=== PATIENT | female | born 1965 | race Caucasian/White ===

== ENCOUNTER 2018-02-25 19:21 | Emergency (ER) | payer OTHER ==
[~2018-02-25] VITALS: Ht 152.4 cm; Wt 63.5 kg
[~2018-02-25 19:21] MED LIST: "\\\"CHOLESTEROL MED\\\""; ALBU90OI INH; ALBU90OI6 INH; ATOR40TA PO; Amoxicillin500 MG PO; COMBIVENT RESPIM4 GM INH; Cipro500 MG PO; DOXY100T53 PO; FLUSAL5005 INH; Flonase 0.05% N16 GM; GUAI120S1 PO; HYDACE10B; HYDR1TAB94 PO; Naprosyn500 MG PO; Norco 5-325 Ta1 EACH PO; OMEP20ER; OMEP40CA12 PO; OXYACE5T PO; PRED10 PO; Prednisone20 MG PO; Prilosec Otc20 MG PO; Pyridium200 MG PO; QVAR7.3 G1 IH; SPACE CHAMBER1 EACH MC; Zithromax250 MG PO
[2018-02-25] MEDS ORDERED: Cipro500 MG PO (20:32)
[2018-02-25] MEDS ORDERED: ALBU90OI INH (20:32)
== END 2018-02-25 20:46 | disposition home or self-care (01) ==
LOC: ER 19:21
DX: J44.1 Chronic obstructive pulmonary disease with (acute) exacerbation (principal); E78.5 Hyperlipidemia, unspecified; Z79.899 Other long term (current) drug therapy; Z79.51 Long term (current) use of inhaled steroids; Z79.2 Long term (current) use of antibiotics; Z87.891 Personal history of nicotine dependence
CPT/HCPCS: 71046; 94640; 99283

== ENCOUNTER 2018-05-05 17:02 | Emergency (ER) | payer OTHER ==
[~2018-05-05] VITALS: Ht 152.4 cm; Wt 72.6 kg
== END 2018-05-05 19:49 | disposition home or self-care (01) ==
LOC: ER 17:02
DX: S70.02XA Contusion of left hip, initial encounter (principal); S80.02XA Contusion of left knee, initial encounter; E78.5 Hyperlipidemia, unspecified; Z79.899 Other long term (current) drug therapy; Z87.891 Personal history of nicotine dependence; W01.0XXA Fall on same level from slipping, tripping and stumbling without subsequent striking against object, initial encounter
CPT/HCPCS: 73502; 73564; 99283

== ENCOUNTER 2018-07-02 19:33 | Emergency (ER) | payer OTHER ==
[~2018-07-02] VITALS: Ht 152.4 cm; Wt 74.8 kg
[~2018-07-02 19:33] MED LIST changes: +QNASL8.7 GM INH
[2018-07-02] MEDS ORDERED: METF500C (19:38)
== END 2018-07-02 20:59 | disposition home or self-care (01) ==
LOC: ER 19:33
DX: M25.471 Effusion, right ankle (principal); E78.5 Hyperlipidemia, unspecified; Z87.891 Personal history of nicotine dependence; Z79.899 Other long term (current) drug therapy
CPT/HCPCS: 93971; 99283-25

== ENCOUNTER 2019-01-02 11:58 | Emergency (ER) | payer OTHER ==
[~2019-01-02] VITALS: Ht 152.4 cm; Wt 74.8 kg
[~2019-01-02 11:58] MED LIST changes: +METF500C
[2019-01-02 12:55] LABS: Calcium, Ionized (POC) 1.08 mmol/L (1.10-1.46); Chloride (POC) 105 mmol/L (98-108); Creatinine (POC) 0.7 mg/dL (0.6-1.0); Glucose (ISTAT POC) 129 mg/dL (70-99); Hemoglobin (POC) 12.2 g/dL (12.0-16.0); Potassium (POC) 3.7 mmol/L (3.5-5.5); Sodium (POC) 137 mmol/L (135-148); Total CO2 (POC) 25 mmol/L (21-32)
[2019-01-02] MEDS ORDERED: Prednisone20 MG PO (13:15)
== END 2019-01-02 13:34 | disposition home or self-care (01) ==
LOC: ER 11:58
DX: J44.1 Chronic obstructive pulmonary disease with (acute) exacerbation (principal); E78.5 Hyperlipidemia, unspecified; Z79.51 Long term (current) use of inhaled steroids; Z79.84 Long term (current) use of oral hypoglycemic drugs; Z79.899 Other long term (current) drug therapy; Z87.891 Personal history of nicotine dependence
CPT/HCPCS: 71046; 80047; 85014; 94640; 99285-25

== ENCOUNTER 2019-01-12 17:00 | Emergency (ER) | payer OTHER ==
[~2019-01-12] VITALS: Ht 152.4 cm; Wt 74.8 kg
[2019-01-12 17:39] LABS: BASOPHILS ABSOLUTE AUTO 0.03 K/mm3 (0.00-0.23); BASOPHILS PERCENT AUTO 0 % (0-2); EOSINOPHILS PERCENT AUTO 1 % (0-6); Hematocrit 33.7 % (33.0-51.0); Hemoglobin 10.3 g/dL (11.5-16.0); IMMATURE GRAN ABSOLUTE AUTO 0.16 K/mm3 (0.00-0.10); IMMATURE GRAN PERCENT AUTO 1 % (0-1); LYMPHOCYTES ABSOLUTE AUTO 5.69 K/mm3 (0.84-5.20); LYMPHOCYTES PERCENT AUTO 38 % (21-46); MONOCYTES ABSOLUTE AUTO 1.16 K/mm3 (0.16-1.47); MONOCYTES PERCENT AUTO 8 % (4-13); Mean Corpuscular HGB 25.5 pg (26.0-34.0); Mean Corpuscular HGB Conc 30.6 g/dL (31.5-36.5); Mean Corpuscular Volume 83 fL (80-100); Mean Platelet Volume 8.9 fL (9.1-12.4); NEUTROPHILS ABSOLUTE AUTO 7.82 K/mm3 (1.96-9.15); NEUTROPHILS PERCENT AUTO 52 % (41-73); Platelet Count 495 K/mm3 (150-400); RDW Coefficient Variation 14.2 % (11.7-14.2); RDW Standard Deviation 43.2 fL (35.1-46.3); Red Blood Cell Count 4.04 M/mm3 (3.80-5.20); White Blood Cell Count 14.96 K/mm3 (4.00-11.30)
[2019-01-12 18:03] LABS: Alanine Aminotransfer (ALT/SGP 25 U/L (12-78); Albumin, Blood 3.4 g/dL (3.4-5.0); Albumin/Globulin Ratio 1.1 (0.8-1.8); Alk Phos 87 U/L (50-136); Anion Gap 9 mmol/L (6-16); Aspartate Aminotrans (AST/SGOT 15 U/L (12-37); Bilirubin, Total 0.3 mg/dL (0.1-1.0); Blood Urea Nitrogen 13 mg/dL (8-24); Bun/Creatinine Ratio 17.1 (12.0-20.0); CO2, Blood 28 mmol/L (21-32); Calcium, Blood 7.5 mg/dL (8.5-10.1); Chloride, Blood 108 mmol/L (98-108); Creatinine, Blood 0.76 mg/dL (0.40-1.00); Glomerular Filtration Rate >60 (60-); Glucose, Blood 90 mg/dL (70-99); Potassium, Blood 2.9 mmol/L (3.5-5.5); Sodium, Blood 145 mmol/L (136-145); Total Protein, Blood 6.4 g/dL (6.4-8.2); Troponin I <0.015 ng/mL (0.000-0.040)
[2019-01-12] MEDS ORDERED: PRED10 PO (18:16)
[2019-01-12] MEDS ORDERED: POTCHL20ER PO (18:16)
== END 2019-01-12 18:37 | disposition home or self-care (01) ==
LOC: ER 17:00
PROVIDERS: Emergency Medicine
DX: J44.1 Chronic obstructive pulmonary disease with (acute) exacerbation (principal); E87.6 Hypokalemia; E11.9 Type 2 diabetes mellitus without complications; E78.5 Hyperlipidemia, unspecified; K21.9 Gastro-esophageal reflux disease without esophagitis; Z87.891 Personal history of nicotine dependence; Z79.84 Long term (current) use of oral hypoglycemic drugs; Z79.899 Other long term (current) drug therapy
CPT/HCPCS: 36415; 71046; 80053; 83880; 84484; 85025; 93005; 93010; 94644; 99285-25

== ENCOUNTER 2019-07-14 13:07 | Emergency (ER) | payer OTHER ==
[~2019-07-14] VITALS: Ht 152.4 cm; Wt 72.6 kg
[~2019-07-14 13:07] MED LIST changes: +POTCHL20ER PO
== END 2019-07-14 15:58 | disposition home or self-care (01) ==
LOC: ER 13:07
DX: M25.462 Effusion, left knee (principal); Z79.84 Long term (current) use of oral hypoglycemic drugs; Z79.899 Other long term (current) drug therapy; J44.9 Chronic obstructive pulmonary disease, unspecified; E78.5 Hyperlipidemia, unspecified; E78.00 Pure hypercholesterolemia, unspecified; Z87.891 Personal history of nicotine dependence; Z85.42 Personal history of malignant neoplasm of other parts of uterus
CPT/HCPCS: 73562-LT; 76882; 99284-25; J2704

== ENCOUNTER 2019-09-08 09:30 | Emergency (ER) | payer OTHER ==
[~2019-09-08] VITALS: Ht 162.6 cm; Wt 69.8 kg
[2019-09-08] MEDS ORDERED: Ventolin/Prove6.7 GM INH (10:42)
[2019-09-08] MEDS ORDERED: Prednisone20 MG PO (10:42)
[2019-09-08] MEDS ORDERED: Zithromax250 MG PO (10:42)
== END 2019-09-08 10:50 | disposition home or self-care (01) ==
LOC: ER 09:30
DX: R05 Cough (principal); Z79.899 Other long term (current) drug therapy; Z79.84 Long term (current) use of oral hypoglycemic drugs; Z79.52 Long term (current) use of systemic steroids; E78.5 Hyperlipidemia, unspecified; J44.9 Chronic obstructive pulmonary disease, unspecified; Z87.891 Personal history of nicotine dependence
CPT/HCPCS: 71046; 99283-25; J7512

== ENCOUNTER 2019-10-07 11:41 | Emergency (ER) | payer OTHER ==
[~2019-10-07] VITALS: Ht 152.4 cm; Wt 72.6 kg
[~2019-10-07 11:41] MED LIST changes: +Albuterol2.5 MG/0.5 NEB; +IBUP600 PO; +METF500C PO; +Norco 10-325 T1 EACH PO; +OMEPRAZOLE20 MG PO; +VITAMIN D35000 UNIT PO; +Ventolin/Prove6.7 GM INH
[2019-10-07] MEDS ORDERED: Zithromax250 MG PO (14:03)
[2019-10-07] MEDS ORDERED: Prednisone20 MG PO (14:03)
== END 2019-10-07 14:15 | disposition home or self-care (01) ==
LOC: ER 11:41
DX: J44.1 Chronic obstructive pulmonary disease with (acute) exacerbation (principal); E11.9 Type 2 diabetes mellitus without complications; K21.9 Gastro-esophageal reflux disease without esophagitis; E78.5 Hyperlipidemia, unspecified; Z87.891 Personal history of nicotine dependence; Z79.899 Other long term (current) drug therapy; Z79.84 Long term (current) use of oral hypoglycemic drugs
CPT/HCPCS: 71046; 94644; 96374; 99283-25; J2930

== ENCOUNTER 2019-10-26 05:58 | Day surgery (SDC) | payer OTHER ==
[~2019-10-26] VITALS: Ht 152.4 cm; Wt 73.4 kg
--- NOTE | 2019-10-26 06:39 | NUR ---
History, Chart, Medications and Allergies reviewed before start of procedure. Patient confirms NPO status and agrees with scheduled surgery.
--- NOTE | 2019-10-26 06:58 | NUR ---
KNEE HIGH MILA HOSE WITH CALF PAS INTACT TO RLE.
--- NOTE | 2019-10-26 07:15 | NUR ---
CHER X3 AMPULES TO MAXX COSTA.
--- NOTE | 2019-10-26 15:18 | NUR ---
PT WORKING WITH THERAPY.
--- NOTE | 2019-10-26 18:34 | NUR ---
SHIFT SUMMARY PT EATING AND DRINKING, VOIDING. PT AMBULATED SHORT DISTANCE WITH GAIT BELT AND WALKER. PT BEEN ASSISTED WITH ADL'S PRN. DISCUSSED PAIN MGMT WITH PT.
[2019-10-27 04:25] LABS: BASOPHILS ABSOLUTE AUTO 0.03 K/mm3 (0.00-0.23); BASOPHILS PERCENT AUTO 0 % (0-2); EOSINOPHILS ABSOLUTE AUTO 0.04 K/mm3 (0.00-0.68); EOSINOPHILS PERCENT AUTO 0 % (0-6); Hematocrit 25.7 % (33.0-51.0); Hemoglobin 7.7 g/dL (11.5-16.0); IMMATURE GRAN ABSOLUTE AUTO 0.06 K/mm3 (0.00-0.10); IMMATURE GRAN PERCENT AUTO 0 % (0-1); LYMPHOCYTES ABSOLUTE AUTO 1.89 K/mm3 (0.84-5.20); LYMPHOCYTES PERCENT AUTO 12 % (21-46); MONOCYTES ABSOLUTE AUTO 1.42 K/mm3 (0.16-1.47); MONOCYTES PERCENT AUTO 9 % (4-13); Mean Corpuscular HGB 23.6 pg (26.0-34.0); Mean Corpuscular Volume 79 fL (80-100); Mean Platelet Volume 9.5 fL (9.1-12.4); NEUTROPHILS ABSOLUTE AUTO 12.04 K/mm3 (1.96-9.15); NEUTROPHILS PERCENT AUTO 78 % (41-73); Platelet Count 386 K/mm3 (150-400); RDW Coefficient Variation 16.1 % (11.7-14.2); RDW Standard Deviation 46.5 fL (35.1-46.3); Red Blood Cell Count 3.26 M/mm3 (3.80-5.20); White Blood Cell Count 15.48 K/mm3 (4.00-11.30)
[2019-10-27 04:45] LABS: Anion Gap 7 mmol/L (6-16); Blood Urea Nitrogen 17 mg/dL (8-24); CO2, Blood 25 mmol/L (21-32); Calcium, Blood 8.5 mg/dL (8.5-10.1); Chloride, Blood 108 mmol/L (98-108); Creatinine, Blood 0.77 mg/dL (0.40-1.00); Glomerular Filtration Rate >60 (60-); Glucose, Blood 117 mg/dL (70-99); Magnesium, Blood 1.9 mg/dL (1.6-2.4); Potassium, Blood 4.3 mmol/L (3.5-5.5); Sodium, Blood 140 mmol/L (136-145)
--- NOTE | 2019-10-27 06:07 | NUR ---
SHIFT SUMMARY: TABBY IS POD1 FOR A L TKA. SHE HAS INTACT SENSATION AND BRISK CAPILLARY REFILL IN BLE. SHE IS A&OX4. SHE HAS COMPLAINED OF 8-10/10 PAIN IN THE LEFT KNEE THROUGHOUT THE SHIFT FOR WHICH SHE REPORTS 2 TABLETS OF OXYCODONE ALLOW HER TO REST. MILA HOSE, SCDs, AND POLAR PACK IN PLACE. SHE AMBULATES WITH 1 PERSON ASSIST WITH THE FWW. AQUACELL C/D&I. SHE IS TOLERATING PO INTAKE WELL. SHE DID DEVELOP SOME WHEEZING AND A CONGESTED SOUNDING COUGH AT HS FOR WHICH THE BREATHING TREATEMENT PROVIDED BY RT RESOLVED HER SYMTPOMS. SHE RESTED WITH SNORTING RESPIRATIONS FREQUENTLY THROUGHOUT THE SHIFT. SHE IS VOIDING WITHOUT DIFFICULTY. IV TO RIGHT WRIST PATENT, SALINE LOCKED. SHE IS LYING IN BED WITH HER CALL LIGHT IN REACH.
--- NOTE | 2019-10-27 07:51 | NUR ---
PT REPORTS "MY PAIN IS FINALLY DOING BETTER THIS AM". PT REFUSING TO BE OUT OF BED TO CHAIR THIS AM FOR BREAKFAST.
[2019-10-27] MEDS ORDERED: ACET500 PO (08:54)
[2019-10-27] MEDS ORDERED: ROXICODONE5 MG PO (08:55)
[2019-10-27] MEDS ORDERED: ASPI81CH PO (08:55)
--- NOTE | 2019-10-27 09:24 | NUR ---
DR ARREAGA HERE EARLIER TO SEE PT, DISCUSSED PT'S LABS. REPORTS PT ASSYMPTOMATIC TO GIVE ASA. DRESSING TO L KNEE C/D/I.
--- NOTE | 2019-10-27 10:04 | NUR ---
FAMILY PRESENT. PT UP TO BATHROOM, THEN TO CHAIR. NEW ICE TO POLAR PAC. DISCUSSED POLAR PAC AND DRESSING CHANGE WITH FAMILY.
--- NOTE | 2019-10-27 11:24 | NUR ---
PT WORKING WITH THERAPY. FAMILY PRESENT.
--- NOTE | 2019-10-27 14:40 | NUR ---
10/27/19 1440 Susan Abbott VERIFICATIONS: EDIT CHART.
--- NOTE | 2019-10-27 16:16 | NUR ---
DISCHARGE: PT EATING AND DRINKING, VOIDING, PASSING GAS. PT PAIN CONTROLLED ON PO PAIN MEDICATION. PT CLEARED BY THERAPY TO GO HOME. PT/FAMILY REPORTS UNDERSTANDING OF DISCHARGE INSTRUCTIONS. PT REPORTS HAVING APPR EQUIP AT HOME. PT SENT WITH SCRIPT AND PAPERWORK. PT ALSO SENT WITH DRESSINGS. PT/FAMILY ALSO REPORTS UNDERSTANDING OF ICE MACHINE AND DRESSING SUPPLIES.
== END 2019-10-27 16:29 | disposition home or self-care (01) ==
LOC: ORSCMMR 05:58 → ORD 07:30 → SURS 14:09 → ORSCMMR 10-27 16:29
PROVIDERS: Orthopaedic Surgery
PROC: 0SPD04Z Removal of Internal Fixation Device from Left Knee Joint, Open Approach (ICD-10-PCS; principal; 2019-10-26 07:30)
PROC: 0SRD0J9 Replacement of Left Knee Joint with Synthetic Substitute, Cemented, Open Approach (ICD-10-PCS; principal; 2019-10-26 07:30)
DX: M17.32 Unilateral post-traumatic osteoarthritis, left knee (principal); E11.9 Type 2 diabetes mellitus without complications; Z79.899 Other long term (current) drug therapy; Z79.84 Long term (current) use of oral hypoglycemic drugs; J44.9 Chronic obstructive pulmonary disease, unspecified; K21.9 Gastro-esophageal reflux disease without esophagitis; Z87.891 Personal history of nicotine dependence
CPT/HCPCS: 36415; 73560-LT; 80048; 82947; 83735; 85025; 88300; 94640; 94760; 97110; 97116; 97162; 97530; C1713; C1776; J0171; J0690; J0735; J1100; J1170; J1885; J2250; J2405; J2704; J2795; J3010; J7120

== ENCOUNTER 2020-01-01 07:30 | Emergency (ER) | payer OTHER ==
[~2020-01-01] VITALS: Ht 162.6 cm; Wt 69.8 kg
[~2020-01-01 07:30] MED LIST changes: +ACET500 PO; +ASPI81CH PO; +ROXICODONE5 MG PO
[2020-01-01] MEDS ORDERED: Vibramycin100 MG PO (08:37)
[2020-01-01] MEDS ORDERED: PRED20 PO (08:37)
== END 2020-01-01 09:11 | disposition home or self-care (01) ==
LOC: ER 07:30
DX: J44.0 Chronic obstructive pulmonary disease with (acute) lower respiratory infection (principal); J20.9 Acute bronchitis, unspecified; J44.1 Chronic obstructive pulmonary disease with (acute) exacerbation; E78.5 Hyperlipidemia, unspecified; I25.10 Atherosclerotic heart disease of native coronary artery without angina pectoris; Z79.899 Other long term (current) drug therapy; Z79.51 Long term (current) use of inhaled steroids; Z79.84 Long term (current) use of oral hypoglycemic drugs; Z79.82 Long term (current) use of aspirin; Z87.891 Personal history of nicotine dependence
CPT/HCPCS: 71046; 93005; 93010; 94640; 99283-25; J7512

== ENCOUNTER 2020-04-11 14:00 | Day surgery (SDC) | payer OTHER ==
[~2020-04-11 14:00] MED LIST changes: +PRED20 PO; +Vibramycin100 MG PO
[2020-04-11] MEDS ORDERED: Hydrocodone-Ap1 EA20 PO (14:50)
[2020-04-11] MEDS ORDERED: Ventolin/Prove6.7 GM INH (14:52)
== END 2020-04-11 18:06 | disposition home or self-care (01) ==
PROVIDERS: Podiatrist Foot & Ankle Surgery
PROC: 0SPF04Z Removal of Internal Fixation Device from Right Ankle Joint, Open Approach (ICD-10-PCS; principal; 2020-04-11 15:45)
DX: M19.071 Primary osteoarthritis, right ankle and foot (principal); T84.84XA Pain due to internal orthopedic prosthetic devices, implants and grafts, initial encounter; J44.9 Chronic obstructive pulmonary disease, unspecified; Z79.899 Other long term (current) drug therapy

== ENCOUNTER 2020-06-07 14:19 | Inpatient (IN) | payer OTHER ==
[~2020-06-07] VITALS: Ht 152.4 cm; Wt 73.4 kg
[~2020-06-07 14:19] MED LIST changes: +Hydrocodone-Ap1 EA20 PO
--- NOTE | 2020-06-10 07:40 | NUR ---
INTO [facility] ADMISSION STARTED SURGEON AND ANNESTHESIOLOGIST AT BEDSIDE
--- NOTE | 2020-06-10 11:12 | NUR ---
PT WAKES AT 1105 STATING OVER AND OVER "MY FOOT HURTS SO BAD" MEDICATING PRESCRIBED SHE IS ABLE TO WIGGLE TOES CAP REFILL WNL DRSG CDI FACIAL GRIMACE PRESENT
--- NOTE | 2020-06-10 13:18 | NUR ---
ARRIVED FROM PACU VIA GURNEY, TRANSFERRED TO BED, AWAKE, A&OX3, DROWSY, C/O PAIN ON RLE THEN FALLS BACK TO SLEEP, ICE PACK NOTED ON RLE, ELEVATED ON PILLOWS, DENIES ANY NUMBNESS OR TINGLING, RLE W/ SPLINT AND YOSEF WRAP, ABLE TO MOVE TOES ON R FOOT, <3 SEC CAP REFILL, DSG C/D/I, DENIES ANY SOB, MONITOR FOR ANY CHANGES, ASSIST PRN, MEDICATE FOR PAIN PRN.
[2020-06-10 13:40] LABS: Anion Gap 6 mmol/L (6-16); Blood Urea Nitrogen 13 mg/dL (8-24); CO2, Blood 28 mmol/L (21-32); Calcium, Blood 8.4 mg/dL (8.5-10.1); Chloride, Blood 104 mmol/L (98-108); Creatinine, Blood 0.76 mg/dL (0.40-1.00); Glomerular Filtration Rate >60 (60-); Glucose, Blood 124 mg/dL (70-99); Potassium, Blood 4.1 mmol/L (3.5-5.5); Sodium, Blood 138 mmol/L (136-145)
--- NOTE | 2020-06-10 17:02 | NUR ---
PT CONT. TO C/O PAIN 06/03 ON POSTERIOR ANKLE AREA, DR. BAE NOTIFIED, HERE TO SEE PT, FENTANYL IV CHANGED FROM Q4HRS PRN TO Q2HRS PRN, AND XRAY ORDERED FOR RLE, PT MEDICATED ORDERED, ASSISTED TO BSC TO VOID, ABLE TO TRANSFER SELF TO BSC AND MAINTAIN NWB ON R ANKLE, TOLERATED WELL, ASSISTED BACK TO BED, ELEVATED RLE ON PILLOWS, DSG C/D/I, NO ACUTE CHANGES THIS SHIFT.
--- NOTE | 2020-06-11 00:48 | NUR ---
PAIN BACK UP TO 10/10, TRIED ELEVATING AND ICE. NOT TIME FOR ANY NARCOTICS. PLACED CALL OUT TO DR. FLORES.
[2020-06-11 04:27] LABS: BASOPHILS ABSOLUTE AUTO 0.06 K/mm3 (0.00-0.23); BASOPHILS PERCENT AUTO 1 % (0-2); EOSINOPHILS ABSOLUTE AUTO 0.19 K/mm3 (0.00-0.68); EOSINOPHILS PERCENT AUTO 2 % (0-6); Hematocrit 32.5 % (33.0-51.0); Hemoglobin 9.5 g/dL (11.5-16.0); IMMATURE GRAN ABSOLUTE AUTO 0.04 K/mm3 (0.00-0.10); IMMATURE GRAN PERCENT AUTO 0 % (0-1); LYMPHOCYTES ABSOLUTE AUTO 1.41 K/mm3 (0.84-5.20); LYMPHOCYTES PERCENT AUTO 13 % (21-46); MONOCYTES ABSOLUTE AUTO 1.22 K/mm3 (0.16-1.47); MONOCYTES PERCENT AUTO 11 % (4-13); Mean Corpuscular HGB 23.2 pg (26.0-34.0); Mean Corpuscular HGB Conc 29.2 g/dL (31.5-36.5); Mean Corpuscular Volume 79 fL (80-100); Mean Platelet Volume 9.2 fL (9.1-12.4); NEUTROPHILS ABSOLUTE AUTO 7.77 K/mm3 (1.96-9.15); NEUTROPHILS PERCENT AUTO 73 % (41-73); Platelet Count 519 K/mm3 (150-400); RDW Coefficient Variation 15.9 % (11.7-14.2); RDW Standard Deviation 45.4 fL (35.1-46.3); White Blood Cell Count 10.69 K/mm3 (4.00-11.30)
[2020-06-11 04:42] LABS: Anion Gap 6 mmol/L (6-16); Blood Urea Nitrogen 11 mg/dL (8-24); Bun/Creatinine Ratio 14.3 (12.0-20.0); CO2, Blood 27 mmol/L (21-32); Calcium, Blood 8.5 mg/dL (8.5-10.1); Chloride, Blood 104 mmol/L (98-108); Creatinine, Blood 0.77 mg/dL (0.40-1.00); Glomerular Filtration Rate >60 (60-); Glucose, Blood 130 mg/dL (70-99); Potassium, Blood 4.7 mmol/L (3.5-5.5); Sodium, Blood 137 mmol/L (136-145)
--- NOTE | 2020-06-11 04:42 | NUR ---
POD 1 S/P RIGHT TOTAL ANKLE. PT HAD POOR PAIN MANAGEMENT DURING NIGHT. WAS ABLE TO OBTAIN ORDER FOR IV DILAUDID AND PT HAS BEEN ABLE TO TOLERATE PAIN. PT ABLE TO WIGGLE TOES, DENIES N/T, GOOD CAP REFILL. KEPT LE ELEVATED WITH ICE. PT IS ABLE TO TRANSFER SELF TO BSC WITH SBA AND NWB TO RLE. LABS PENDING. CALL LIGHT IN REACH.
--- NOTE | 2020-06-11 17:30 | NUR ---
TELEPHONE CALL WITH SURGEON R/T HOSPITALIST PLAN TO DC PT SINCE PT HAS PASSED PHYSICAL THERAPY AND IS BETTER PAIN MANAGED ON PERCOCET 10 MG. SURGEON AGREED AND WANTS TO SEE PT ON THURSDAY 06/14. PT STATED SHE DOES NOT HAVE A RIDE HOME TODAY, NO ONE TO STAY WITH, NOR ANY OTHER FRIENDS OR FAMILY THAT CAN PICK HER UP. TELEPHONE CALL TO HOSPITALIST RELAYING ABOVE; PLAN TO DC PT IN AM. PT HAS ARRANGED FOR FAMILY TO PICK HER UP AT 1000.
--- NOTE | 2020-06-11 18:04 | NUR ---
SHIFT SUMMARY PT A&OX4, VSS, POD1 R TOTAL ANKLE, NEW DRESSING APPLIED BY DR BAE THIS AM, ELEVATED ON PILLOWS WITH ICE ON. PAIN MANAGED WITH 10 MG PERCOCET. SADE PO, DENIES N&V. STAND PIVOT TO BSC. PLAN FOR DC IN AM. WILL REPORT TO ONCKUMAR DONG RN.
--- NOTE | 2020-06-12 04:28 | NUR ---
POD 2 S/P RIGHT TOTAL ANKLE. DID MUCH BETTER LAST NIGHT THAN THE NIGHT PRIOR. DID MEDICATE ONCE FOR BREAKTHROUGH PAIN AT BEGINING OF SHIFT. HAS KEPT ELEVATED WITH ICE. ABLE TO TRANSFER SELF TO BSC WITH JUST SBA. PLAN FOR DC HOME TODAY. SPLINT REMAINS CDI. CIRC CHECKS WNL. CALL LIGHT IN REACH.
[2020-06-12] MEDS ORDERED: ASPI325 PO (11:53)
[2020-06-12] MEDS ORDERED: Percocet 5-3251 EACH PO (11:54)
[2020-06-12] MEDS ORDERED: PERCOCET 10-321 EAC1 PO (11:55)
--- NOTE | 2020-06-12 15:09 | NUR ---
DISCHARGE SUMMARY PT A&OX4, VSS, LEFT FLOOR VIA WC WITH LEATHER COATER TO [facility] HOME WITH FAMILY WITH ALL PERSONAL POSSESSIONS INCLUDING 1 NRC SCRIPT. DC INSTRUCTIONS PROVIDED. PT REP UNDERSTANDING THOSE INSTRUCTIONS INCLUDING FU WITH DR BAE ON SATURDAY AND TO CALL THE OFFICE ON SATURDAY TO SCHEDULE APPT; FILL PAIN SCRIPT; TAKE ASA 325 DAILY FOR 14 DAYS; ALL AMB WITH FWW/NWB. IV DC'D. PT WAS PAIN MANAGED WITH 10 MG PERC, VOIDING WELL, AMB WITH FWW AND USING BSC, DRESSED INDEPENDENTLY; WORKED WITH PT/OT; PT VOICED BEING READY TO GO HOME WITH SON AND DIL.
== END 2020-06-12 12:07 | disposition home or self-care (01) | DRG 469 ==
LOC: PRE IP 06-10 07:16 → SURS 06-10 07:16 → PRE IP 06-10 08:30 → SURS 06-10 12:31
PROVIDERS: Nurse Practitioner Acute Care; Podiatrist Foot & Ankle Surgery; ADMIT Family Medicine
PROC: 0L8S0ZZ Division of Right Ankle Tendon, Open Approach (ICD-10-PCS; 2020-06-10)
PROC: 0SRF0JA Replacement of Right Ankle Joint with Synthetic Substitute, Uncemented, Open Approach (ICD-10-PCS; principal; 2020-06-10 08:30)
DX: M19.071 Primary osteoarthritis, right ankle and foot (principal); J44.9 Chronic obstructive pulmonary disease, unspecified; K21.9 Gastro-esophageal reflux disease without esophagitis; E78.5 Hyperlipidemia, unspecified; D47.3 Essential (hemorrhagic) thrombocythemia; D63.8 Anemia in other chronic diseases classified elsewhere; Z87.891 Personal history of nicotine dependence
CPT/HCPCS: 36415; 73610; 80048; 85025; 94640; 94760; 96375; 96376; 97110; 97116; 97162; 97165; 97535; A9270; A9270-GY; C1776; G0378; J0171; J0690; J1100; J1170; J2250; J2370; J2405; J2704; J3010; J7120

== ENCOUNTER 2020-12-13 17:20 | Inpatient (IN) | payer OTHER ==
[~2020-12-13] VITALS: Ht 152.4 cm; Wt 78.0 kg
[~2020-12-13 17:20] MED LIST changes: +ASPI325 PO; +COMBIVENT RESPIM4 G1 INH; +PERCOCET 10-321 EAC1 PO; +Percocet 5-3251 EACH PO; +THERA-D2000 UNIT PO; -VITAMIN D35000 UNIT PO
[2020-12-13 18:25] LABS: Hematocrit 35.4 % (33.0-51.0); Hemoglobin 10.4 g/dL (11.5-16.0); Mean Corpuscular HGB 21.8 pg (26.0-34.0); Mean Corpuscular HGB Conc 29.4 g/dL (31.5-36.5); Mean Corpuscular Volume 74 fL (80-100); Mean Platelet Volume 9.3 fL (9.1-12.4); Platelet Count 561 K/mm3 (150-400); RDW Coefficient Variation 16.3 % (11.7-14.2); RDW Standard Deviation 43.8 fL (35.1-46.3); Red Blood Cell Count 4.76 M/mm3 (3.80-5.20); White Blood Cell Count 10.47 K/mm3 (4.00-11.30)
[2020-12-13 18:49] LABS: BASOPHILS PERCENT MAN 0 % (0-2); EOSINOPHILS ABSOLUTE MAN 0.41 K/mm3 (0.00-0.68); EOSINOPHILS PERCENT MAN 4 % (0-6); LYMPHOCYTES ABSOLUTE MAN 2.72 K/mm3 (0.84-5.20); LYMPHOCYTES PERCENT MAN 26 % (21-46); MONOCYTES ABSOLUTE MAN 0.52 K/mm3 (0.16-1.47); MONOCYTES PERCENT MAN 5 % (4-13); SEG NEUTROPHILS PERCENT MAN 65 % (41-73); TOTAL CELLS COUNTED 100
[2020-12-13 18:51] LABS: Alanine Aminotransfer (ALT/SGP 18 U/L (12-78); Albumin, Blood 3.7 g/dL (3.4-5.0); Albumin/Globulin Ratio 0.9 (0.8-1.8); Alk Phos 153 U/L (50-136); Anion Gap 5 mmol/L (6-16); Aspartate Aminotrans (AST/SGOT 18 U/L (12-37); Bilirubin, Total 0.3 mg/dL (0.1-1.0); Blood Urea Nitrogen 10 mg/dL (8-24); Bun/Creatinine Ratio 15.6 (12.0-20.0); CO2, Blood 27 mmol/L (21-32); Calcium, Blood 8.9 mg/dL (8.5-10.1); Chloride, Blood 107 mmol/L (98-108); Creatinine, Blood 0.64 mg/dL (0.40-1.00); Glomerular Filtration Rate >60 (60-); Glucose, Blood 108 mg/dL (70-99); Potassium, Blood 3.6 mmol/L (3.5-5.5); Sodium, Blood 139 mmol/L (136-145); Total Protein, Blood 7.7 g/dL (6.4-8.2)
[2020-12-13 21:04] LABS: Troponin I <0.015 ng/mL (0.000-0.040)
[2020-12-13 22:23] LABS: Influenza A, PCR Negative (NEGATIVE); Influenza B, PCR Negative (NEGATIVE); Resp Syncytial Virus, PCR Negative (NEGATIVE); SARS-Cov-2 (COVID-19) PCR, MMC Negative (NEGATIVE)
--- NOTE | 2020-12-14 00:30 | NUR ---
ADMISSION PATIENT ARRIVED TO UNIT NEW ADMISSION FROM ED. ARRIVED VIA STRETCHER, AMBULATED INDEPENDENTLY TO TOILET, AND TO BED. STEADY GAIT. A/O, DENIED DISCOMFORTS WITH AMBULATION. SOB WITH ACTIVITY, BUT MAINTAINED SATS AND RECOVERED WELL. VITALS STABLE, PATIENT ON RA, PRODUCTIVE COUGH NOTED. WILL REVIEW ORDERS AND TREAT PRESCRIBED.
[2020-12-14 04:00] LABS: BASOPHILS ABSOLUTE AUTO 0.07 K/mm3 (0.00-0.23); BASOPHILS PERCENT AUTO 1 % (0-2); EOSINOPHILS ABSOLUTE AUTO 0.01 K/mm3 (0.00-0.68); EOSINOPHILS PERCENT AUTO 0 % (0-6); Hematocrit 34.2 % (33.0-51.0); IMMATURE GRAN ABSOLUTE AUTO 0.03 K/mm3 (0.00-0.10); IMMATURE GRAN PERCENT AUTO 0 % (0-1); LYMPHOCYTES ABSOLUTE AUTO 0.91 K/mm3 (0.84-5.20); LYMPHOCYTES PERCENT AUTO 7 % (21-46); MONOCYTES ABSOLUTE AUTO 0.07 K/mm3 (0.16-1.47); MONOCYTES PERCENT AUTO 1 % (4-13); Mean Corpuscular HGB 21.7 pg (26.0-34.0); Mean Corpuscular HGB Conc 29.2 g/dL (31.5-36.5); Mean Corpuscular Volume 74 fL (80-100); Mean Platelet Volume 9.2 fL (9.1-12.4); NEUTROPHILS ABSOLUTE AUTO 11.53 K/mm3 (1.96-9.15); NEUTROPHILS PERCENT AUTO 91 % (41-73); Platelet Count 589 K/mm3 (150-400); RDW Coefficient Variation 16.5 % (11.7-14.2); RDW Standard Deviation 43.8 fL (35.1-46.3); White Blood Cell Count 12.62 K/mm3 (4.00-11.30)
--- NOTE | 2020-12-14 04:00 | NUR ---
REASSESSMENT NO ACUTE CHANGES FROM INITIAL ASSESSMENT. PATIENT CONTINUES TO HAVE PRODUCTIVE COUGH, O2 VIA NC AT 3L WITH SATS BETWEEN 89-92%. RECEIVED BREATHING TREATMENTS REQUESTED PER RT. REPOSITIONS SELF FOR COMFORT, AND USES CALL LIGHT APPROPRIATELY. WILL CONTINUE TO MONITOR.
[2020-12-14 04:15] LABS: Anion Gap 8 mmol/L (6-16); Blood Urea Nitrogen 11 mg/dL (8-24); Bun/Creatinine Ratio 16.6 (12.0-20.0); CO2, Blood 26 mmol/L (21-32); Calcium, Blood 8.9 mg/dL (8.5-10.1); Chloride, Blood 107 mmol/L (98-108); Creatinine, Blood 0.66 mg/dL (0.40-1.00); Glomerular Filtration Rate >60 (60-); Glucose, Blood 157 mg/dL (70-99); Sodium, Blood 141 mmol/L (136-145)
--- NOTE | 2020-12-14 06:17 | NUR ---
SHIFT SUMMARY 02 VIA NC INCREASED TO 4L SINCE PREVIOUS ASSESSMENT. PATIENT UP TO TOILET, BECAME SHORT OF BREATH AND ANXIOUS WITH ACTIVITY. HEART RATE TO 110'S, PATIENT ASKING FOR BREATHING TREATMENT "RIGHT NOW". ASSISTED PATIENT BACK INTO BED, PROVIDED FAN AND INCREASED 02. ONCE PATIENT IN BED PATIENT BEGAN TO RELAX AND STABILIZE BREATHING PATTERN. HEART RATE DECREASED BACK TO 90-100'S, SATS AT 92%. PATIENT STATED SHE FELT MUCH BETTER. RT MERRY NOTIFIED. AWAITING RT AT THIS TIME. NO OTHER ACUTE CHANGES NOTED. MEDICATED CHARTED. SCDS PLACED TO BLE PER PHYSICIAN'S ORDERS. WILL CONTINUE TO MONITOR AND REPORT TO ONCOMING RN.
--- NOTE | 2020-12-14 08:15 | NUR ---
ASSUMED CARE / CALL TO DR GILL: REPORT RECEIVED FROM JG Elliott RN. ASSUMED CARE OF THIS PT AT APPROX 0700. ON ASSESSMENT, THE PT IS ON 4L NC & RESTING QUIETLY. O2 SATS > 92%, WHEEZING & UPPER AIRWAY TIGHTNESS NOTED. MONITOR SHOWS ST W/ HR 110-120s, BP STABLE. PT HAS NO GI COMPLAINTS & STS HEALTHY APPETITE. VOIDS W/O DIFFICULTY, PAD IN PLACE PER REQUEST FOR OCCASIONAL STRESS INCONTINENCE W/ COUGHING. SKIN CONDITION OVERALL CDI. THE PT AWAKENS SUDDENLY AT APPROX 0750 & HAS C/O SOB AT THAT TIME. RT AT BEDSIDE DURING THIS TIME & NEBS GIVEN PER EMAR. HI-FLOW NC PLACED AT 10 L/MIN W/ MINIMAL IMPROVEMENT TO O2 SATS FROM 84-88%. PLACED ON OXYMIZER AT 15 L/MIN W/ IMPROVEMENT OF O2 SATS TO 96%, DECREASED TO 13 L/MIN W/ O2 SATS MAINTAINING 94%. SHORTLY AFTER THIS, THE PT IS YELLING OUT, STATING "I CAN'T BREATHE, YOU HAVE TO HELP ME!" SHE HAS BEGUN TO REMOVE ALL LINES/ CORDS & IS REFUSING TO LEAVE OXYMIZER ON AT THAT TIME. RR > 30. DR GILL CONTACTED AT THIS TIME W/ REQUEST FOR ANXIETY MEDICATION FOR THE PT, ORDERS PLACED. ORDER ALSO PLACED FOR PULMO CONSULT. MEDS GIVEN PER EMAR W/ RELIEF OF ANXIETY & IMPROVED RR. OVERALL TIGHTNESS & WHEEZING OF LUNGS CONTINUES. O2 SATS > 92%. DR ROWE MADE AWARE OF CONSULT.
[2020-12-14 13:52] LABS: PCO2 Arterial 54.8 mmHg (35-45); PO2 Arterial 77.1 mmHg (80-100); pH Blood Arterial 7.29 (7.35-7.45)
[2020-12-14 16:58] LABS: Source, Urine Catheter
[2020-12-14 16:59] LABS: Base Excess Venous -4.7 mmol/L; Bicarbonate Venous 20.2 mmol/L (24.0-30.0); PCO2 Venous 65.9 mmHg (38-42); PO2 Venous 116 mmHg (38-42)
[2020-12-14 17:00] LABS: pH Blood Venous 7.17 (7.34-7.37)
[2020-12-14 17:01] LABS: Appearance, Urine Cloudy (Clear); Bilirubin, Urine Neg (Neg); Blood, Urine 1+ (Neg); Color, Urine Yellow (P-Yellow); Glucose Qualitative, Urine 3+ (Neg); Ketones, Urine 1+ (Neg); Leukocyte Esterase, Urine Neg (Neg); Nitrite, Urine Neg (Neg); Protein, Urine 3+ (Neg); Urobilinogen, Urine NORM (Normal)
--- NOTE | 2020-12-14 17:14 | NUR ---
UPDATE / INTUBATION: AT APPROX 1345, THIS RN TO BEDSIDE FOR C/O SOB & "CAN'T BREATHE." STRIDOR NOTED FROM DOORWAY & SIGNIFICANTLY WORSENED FROM AM & NOON ASSESSMENTS ON AUSCULTATION. THIS RN HAS CALLED RT GHAZAL, TO BEDSIDE FOR NEB TX & THIS RN GIVEN ATIVAN PER EMAR FOR PT's INCREASING AGITATION. DR ROWE HAS BEEN NOTIFIED OF PT's DECLINE IN CONDITION & ORDERS AN ABG TO BE DRAWN. ABG RESULTS SHOW CRITICAL LOW pH OF 7.29. PROVIDER HAS SPOKEN W/ THE PT ABOUT HER CONDITION & SHE WISHES TO BE INTUBATED. INTUBATION OCCURS FOLLOWS: 1400 - 2MG ATIVAN IV 1413 - IV ACCESS LOST R/T INFILTRATION. IO PLACED TO RLL. 1415 - 4MG ATIVAN 1417 - 20MG ETOMIDATE 1420 - 50MG PROPOFOL, 20MG ETOMIDATE & 40 MG ROCCURONIUM (PT CONTINUES TO BE AGITATED & SITTING STRAIGHT UP IN BED, YELLING OUT) 1423 - 50MG PROPOFOL 1425 - 40MG PROPOFOL & 4MG ATIVAN IM. PT INTUBATED USING GLIDESCOPE W/ 7.5 ETT NOTED TO BE 23.0 CM JOSR. +COLOR CHANGE NOTED. O2 SATS MAINTAINING > 92% - SEE VS. RT BAGGING, 1440 - CL PLACED TO R IJ FOR CONTINUED DIFFICULT VASCULAR ACCESS. 1441 - 2MG VERSED. OGT & JAMESON CATHETER PLACED. CXR COMPLETED & VERIFIED BY DR ROWE. THE PT IS NOW RESTING QUIETLY & TOLERATING VENT WELL W/ O2 SATS > 92%. INITIAL VENT SETTINGS: 12/300/5/100%. O2 SATS NOTED TO BE 100%. VENT SETTINGS NOW VC 12/300/5/60%.
[2020-12-14 17:19] LABS: Renal Epithelial Few /hpf (0-Rare); Squamous Epithelial Cells Few /hpf (Few); Transitional Epithelial Cells Few /hpf (0-Rare)
[2020-12-14 17:20] LABS: Amorphous Mod (0-Heavy); Bacteria Few /hpf; White Blood Cells, Urine 0-2 /hpf (0-5)
--- NOTE | 2020-12-14 18:28 | NUR ---
Spiritual care note: Pt had just been intubated. I met with son at bedside. He was withdrawn and sullen and made it clear he did not want conversation/comfort. I will remain available.
--- NOTE | 2020-12-14 18:53 | NUR ---
SHIFT SUMMARY: NO ACUTE CHANGES SINCE PRIOR UPDATE. PT REMAINS SEDATED & INTUBATED. VENT SETTINGS: VC12/300/5/50%. O2 SATS > 92%. MONITOR SHOWS ST W/ HR 100-110s, HYPOTENSION RESOLVED W/ SEDATION TITRATION. OGT PLACED AT TIME OF INTUBATION REMAINS CLAMPED. JAMESON PATENT/ DRAINING CLEAR YELLOW URINE, UA SENT AT TIME OF PLACEMENT. SKIN CONDITION OVERALL CDI. Q2H REPOSITIONING TO MAINTAIN SKIN INTEGRITY. WILL CONTINUE TO MONITOR & UPDATE NEEDED.
[2020-12-14 19:29] LABS: Base Excess Venous -2.1 mmol/L; PCO2 Venous 67.7 mmHg (38-42); PO2 Venous 59.6 mmHg (38-42); pH Blood Venous 7.19 (7.34-7.37)
--- NOTE | 2020-12-14 19:42 | NUR ---
ASSUMPTION OF CARE RECEIVED REPORT FROM MUNIRA DEY. ASSUMED CARE OF PATIENT. PATIENT INTUBATED WITH TUBE 7.5 AND 23 CM AT THE TEETH. VENT SETTINGS A/C 14, TV 300, FIO2 40%. SATS OF 98%. SEDATION INFUSING OF PRECEDEX AT 0.2MCG/KG/HR, PROPOFOL OF 30MCG/KG/MIN, SAS OF 3. BILAT WRISTS RESTRAINTS IN PLACE. JAMESON CATHETER PATENT AND DRAINING CLEAR, YELLOW URINE. WILL REVIEW ORDERS AND TREAT PRESCRIBED.
--- NOTE | 2020-12-14 23:13 | NUR ---
BLOOD PRESSURE/URINE OUTPUT PATIENT HYPOTENSIVE WITH LOW URINE OUTPUT. REPORTED TO DR. ROWE VIA T/P. RECEIVED NEW ORDERS, WILL TREAT PRESRIBED.
--- NOTE | 2020-12-14 23:57 | NUR ---
SEDATION PROPOFOL ON STANDBY DUE TO BLOOD PRESSURE. PRECEDEX AT 0.3.MCG/KG/HR. NS BOLUS INFUSING ORDERED. PATIENT SPONTANEOUSLY AWOK, BEGAN SITTING UP, COUGHING AND PUSHING ETT. REACHING ARMS TOWARDS TUBE AND PULLING AGAINST RESTRAINTS, KICKING LEGS IN THE AIR AND MOUTHING UNKNOWN WORDS TO RN. VERBAL REASSURANCE PROVIDED WITH NO EFFECT. BLOOD PRESSURE STABLE, INCREASED PROPOFOL TO 50MCG/KG/MIN AND PRECEDEX TO 0.7MCG/KG/HR, ATIVAN GIVEN CHARTED. PATIENT BEGAN TO RELAX SLOWLY. WILL TITRATE MEDICATIONS FOR PATIENT'S COMFORT AND TO MAINTAIN STABLE VITAL SIGNS.
--- NOTE | 2020-12-15 | NUR ---
REASSESSMENT NO ACUTE CHANGES FROM PREVIOUS ASSESSMENT. VENT SETTINGS UNCHANGES. SECOND NS BOLUS INFUSING WITH BLOOD PRESSURE MAINTAINING. CONTINUING TO MONITOR URINE OUTPUT. SAS OF 3, CURRENTLY NO S/S OF DISTRESS. WILL CONTINUE TO MONITOR.
--- NOTE | 2020-12-15 04:00 | NUR ---
REASSESSMENT NO ACUTE CHANGES FROM PREVIOUS ASSESSMENT. SAS 3, VENT SETTINGS REMAIN UNCHANGED. DECREASED PROPOFOL TO 40MCG/KG/MIN. LEVOPHED AT 5MCG/HR. VITALS STABLE. URINE OUTPUT IMPROVED, WILL CONTINUE TO MONITOR.
[2020-12-15 04:10] LABS: BASOPHILS ABSOLUTE AUTO 0.02 K/mm3 (0.00-0.23); BASOPHILS PERCENT AUTO 0 % (0-2); EOSINOPHILS PERCENT AUTO 0 % (0-6); Hemoglobin 8.3 g/dL (11.5-16.0); IMMATURE GRAN ABSOLUTE AUTO 0.11 K/mm3 (0.00-0.10); IMMATURE GRAN PERCENT AUTO 1 % (0-1); LYMPHOCYTES ABSOLUTE AUTO 0.72 K/mm3 (0.84-5.20); LYMPHOCYTES PERCENT AUTO 3 % (21-46); MONOCYTES ABSOLUTE AUTO 0.62 K/mm3 (0.16-1.47); MONOCYTES PERCENT AUTO 3 % (4-13); Mean Corpuscular HGB 21.7 pg (26.0-34.0); Mean Corpuscular HGB Conc 28.6 g/dL (31.5-36.5); Mean Corpuscular Volume 76 fL (80-100); Mean Platelet Volume 9.2 fL (9.1-12.4); NEUTROPHILS ABSOLUTE AUTO 20.37 K/mm3 (1.96-9.15); NEUTROPHILS PERCENT AUTO 93 % (41-73); Platelet Count 558 K/mm3 (150-400); RDW Coefficient Variation 16.7 % (11.7-14.2); RDW Standard Deviation 45.6 fL (35.1-46.3); Red Blood Cell Count 3.82 M/mm3 (3.80-5.20); White Blood Cell Count 21.84 K/mm3 (4.00-11.30)
[2020-12-15 04:29] LABS: Anion Gap 7 mmol/L (6-16); Blood Urea Nitrogen 23 mg/dL (8-24); Bun/Creatinine Ratio 26.6 (12.0-20.0); CO2, Blood 25 mmol/L (21-32); Calcium, Blood 8.4 mg/dL (8.5-10.1); Chloride, Blood 113 mmol/L (98-108); Creatinine, Blood 0.87 mg/dL (0.40-1.00); Glomerular Filtration Rate >60 (60-); Glucose, Blood 199 mg/dL (70-99); Magnesium, Blood 2.2 mg/dL (1.6-2.4); Phosphorus, Blood 3.4 mg/dL (2.5-4.9); Potassium, Blood 3.7 mmol/L (3.5-5.5); Sodium, Blood 145 mmol/L (136-145); Troponin I <0.015 ng/mL (0.000-0.040)
--- NOTE | 2020-12-15 06:04 | NUR ---
SHIFT SUMMARY PATIENT REMAINED INTUBATED AND SEDATED THROUGH NIGHT. FIO2 ADJUSTED DOWN FOR SATS ABOVE 95%. LEVOPHED AT 5MCG/HR TO MAINTAIN BLOOD PRESSURES PATIENT REQUIRES HIGH DOSES OF SEDATION FOR COMFORT AND VENT TOLERATION. URINE OUTPUT IMPROVED, I/O'S CHARTED. WILL CONTINUE TO MONITOR AND REPORT TO ONCOMING RN.
--- NOTE | 2020-12-15 07:15 | NUR ---
Assumed care at 0700. Bedside report received from Sandra DEY. Pt sedated with 30 mcg/kg/min propofol and 0.5 mcg/kg/hr precedex. Pt responsive to pain. Pt ventilated via 7.5 cm ETT, 23 cm at upper lip. Ventilator settings AC 12/400/5/35%. SpO2 90% or greater. Lungs coarse t/o on auscultation. Small amount of thin green sputum aspriated from ETT. Specimen to be sent. Pt has OG tube, clamped at this time. Leonard catheter in place for strict measurement of I&O, draining clear yellow urine.
[2020-12-15 10:01] LABS: Base Excess Venous 0.6 mmol/L; Bicarbonate Venous 24.9 mmol/L (24.0-30.0); PCO2 Venous 42.9 mmHg (38-42); PO2 Venous 79.1 mmHg (38-42); pH Blood Venous 7.39 (7.34-7.37)
--- NOTE | 2020-12-15 10:52 | NUR ---
TF started at 1000. 20 mL residual measured prior to starting feeds. Feeds and flushes per orders through OG tube. This RN found pt sitting up in bed, coughing. At this time, propofol at 30 mcg/kg/min and precedex at 0.5 mcg/kg/hr. Precedex increased to 0.7 mcg/kg/hr. Pt calm at this time. Will continue to closely reassess.
--- NOTE | 2020-12-15 17:15 | NUR ---
SUMMARY Pt is currently sedated with 30 mcg/kg/min propofol and 0.7 mcg/kg/hr precedex. Responsive to pain . Tolerating ventilator well. Settings AC 12/400/5/30%. SpO2 90% or greater. SR per monitor. Levophed off. TF per orders, pt tolerating well. Pt's daughter in law visiting at bedside. Will continue to closely monitor until care handoff and bedside report with oncoming RN.
--- NOTE | 2020-12-15 17:25 | NUR ---
Spiritual care note: Lengthy visit with pt's MIMI who is very devoted and loving. I provided theraputic listening and facilitated story-telling. Affirmed obvious love and complimented her on her compassion. Family is hopeful No will continue to improve and are much relieved today. Prayer for healing provided. Family will benefit from continued support. Manager Asset serevices will remain available.
--- NOTE | 2020-12-15 19:21 | NUR ---
REPORT RECEIVED FROM TIBURCIO JARVIS. PT INTUBATED AND SEDATED. RESPONDS TO PAIN. AC SETTINGS 12/400/5/30%. SR -ST. SBP STABLE. OGT IN PLACE WITH TF AT GOAL. JAMESON IN PLACE AND PRODUCING GOOD URINE. CL IN RIJ. PROPOFOL INFUSING AT 30MCG, PRECEDEX AT 0.7.
[2020-12-16 03:50] LABS: Base Excess Venous 3.1 mmol/L; Bicarbonate Venous 26.6 mmol/L (24.0-30.0); PCO2 Venous 42.6 mmHg (38-42); PO2 Venous 42.5 mmHg (38-42); pH Blood Venous 7.42 (7.34-7.37)
[2020-12-16 04:01] LABS: BASOPHILS ABSOLUTE AUTO 0.02 K/mm3 (0.00-0.23); BASOPHILS PERCENT AUTO 0 % (0-2); EOSINOPHILS PERCENT AUTO 0 % (0-6); Hemoglobin 7.8 g/dL (11.5-16.0); IMMATURE GRAN ABSOLUTE AUTO 0.11 K/mm3 (0.00-0.10); IMMATURE GRAN PERCENT AUTO 1 % (0-1); LYMPHOCYTES ABSOLUTE AUTO 0.96 K/mm3 (0.84-5.20); LYMPHOCYTES PERCENT AUTO 5 % (21-46); MONOCYTES ABSOLUTE AUTO 0.51 K/mm3 (0.16-1.47); MONOCYTES PERCENT AUTO 3 % (4-13); Mean Corpuscular HGB 21.8 pg (26.0-34.0); Mean Corpuscular HGB Conc 28.9 g/dL (31.5-36.5); Mean Corpuscular Volume 76 fL (80-100); Mean Platelet Volume 9.3 fL (9.1-12.4); NEUTROPHILS ABSOLUTE AUTO 16.92 K/mm3 (1.96-9.15); NEUTROPHILS PERCENT AUTO 91 % (41-73); Platelet Count 454 K/mm3 (150-400); RDW Standard Deviation 47.1 fL (35.1-46.3); Red Blood Cell Count 3.57 M/mm3 (3.80-5.20); White Blood Cell Count 18.52 K/mm3 (4.00-11.30)
[2020-12-16 04:14] LABS: Anion Gap 3 mmol/L (6-16); Blood Urea Nitrogen 27 mg/dL (8-24); Bun/Creatinine Ratio 47.4 (12.0-20.0); CO2, Blood 29 mmol/L (21-32); Calcium, Blood 8.3 mg/dL (8.5-10.1); Chloride, Blood 112 mmol/L (98-108); Creatinine, Blood 0.57 mg/dL (0.40-1.00); Glomerular Filtration Rate >60 (60-); Glucose, Blood 132 mg/dL (70-99); Magnesium, Blood 2.5 mg/dL (1.6-2.4); Potassium, Blood 4.2 mmol/L (3.5-5.5); Sodium, Blood 144 mmol/L (136-145)
--- NOTE | 2020-12-16 04:40 | NUR ---
PT HAD MULTIPLE EPISODES OF AGITATION. PT WOULD SIT STRAIGHT UP AND COUGH/GAG VIOLENTLY AROUND TUBE. SEDATION INCREASED. PT TOLERATING TUBE BETTER
--- NOTE | 2020-12-16 06:06 | NUR ---
PT IS SEDATED ON PROPOFOL AT 50MCG AND PRECEDEX AT 0.7MCG. NO EPISODES OF AGITATION SINCE LAST NOTE. DUE TO PTS SIGNIFICANT EPISODES OF AGITATION WEAN AND SBT HELD.
--- NOTE | 2020-12-16 07:45 | NUR ---
BEGINNING OF SHIFT Assumed care of pt at 0700. Bedside report received from Casey DEY. Pt sedated with propofol at 50 mcg/kg/min and precedex at 0.7 mcg/kg/hr. TF per OG tube at goal with flushes per orders. 10 mL residual measured. Leonard catheter draining clear, yellow urine. Propofol turned off for sedation vacation and pt changed to spontaneous mode on ventilator per RT Avinash. After about 10 minutes of turning off propofol, pt alert and able to follow commands. Pt began to cough and gag continuously. No drop in SpO2 noted. Propofol restarted as pt was coughing and gagging and vomited a small amount. Pt changed back to AC 16/400/5/30%. SpO2 90% or greater. Lungs have expiratory wheezes but overall sound better in comparison to assessments done yesterday.
--- NOTE | 2020-12-16 12:00 | NUR ---
Dr Red in to see patient. Provider states he would like to do another spontaneous breathing trial. Plan to decrease sedation and then change ventilator to pressure support 05/29.
--- NOTE | 2020-12-16 12:45 | NUR ---
Vent changed to pressure support 7/5 and 30% FiO2. SpO2 90% or greater. RR 12-16. Tidal volumes 350-450 mL.
--- NOTE | 2020-12-16 14:56 | NUR ---
Patient extubated at 1333. OG tube and restraints removed at that time as well. Propofol dc'd shortly before extubation. Precedex remains off. Pt placed on 3 LPM NC, which was able to be titrated down to 2 LPM. SpO2 93% at this time. Pt has harsh, nonproductive cough. Pt is confused, asking "where am I?" and "what's going on?" after she has been reoriented. Nonetheless, pt is pleasant and cooperative with care.
--- NOTE | 2020-12-16 17:54 | NUR ---
SUMMARY Pt A&O x 2. Visiting with [id number] who is in the room. Bedside swallow eval done. Pt tolerating water well. Pt easily distracted, so will supervise all PO intake. Pt on 4 LPM NC. SpO2 92%. Pt has harsh, productive cough with copious amounts of green sputum. ST per monitor. BP stable. Leonard catheter draining clear yellow urine. Will continue to closely monitor until care handoff and bedside report with oncoming RN.
--- NOTE | 2020-12-16 20:22 | NUR ---
PT EXTUBATED. IS CONFUSED BUT HAS MOMENTS OF LUCIDITY. IS ANXIOUS AND IMPULSIVE . C/O NOT SLEEPING THE LAST FEW DAYS. PTS LUNGS ARE COARSE AND SHE IS HACKING UP LARGE AMTS OF SPUTUM. SHE IS USING THE YANKOUR TO SUCTION HER OWN SECRETIONS. JAMESON REMAINS IN PLACE. PT IS REQUESTING SLEEP MEDS AND PAIN MEDS. HOME PAIN MEDS HAVE BEEN ORDERED AND PER VERBAL FROM DR EDMONDSON MAY GIVE HALDOL 2MG IV Q4 PRN. WILL CONTINUE TO MONITOR
[2020-12-17 04:02] LABS: BASOPHILS ABSOLUTE AUTO 0.02 K/mm3 (0.00-0.23); BASOPHILS PERCENT AUTO 0 % (0-2); EOSINOPHILS PERCENT AUTO 0 % (0-6); Hematocrit 27.9 % (33.0-51.0); Hemoglobin 8.2 g/dL (11.5-16.0); IMMATURE GRAN ABSOLUTE AUTO 0.07 K/mm3 (0.00-0.10); IMMATURE GRAN PERCENT AUTO 0 % (0-1); LYMPHOCYTES ABSOLUTE AUTO 1.49 K/mm3 (0.84-5.20); LYMPHOCYTES PERCENT AUTO 9 % (21-46); MONOCYTES ABSOLUTE AUTO 0.64 K/mm3 (0.16-1.47); MONOCYTES PERCENT AUTO 4 % (4-13); Mean Corpuscular HGB Conc 29.4 g/dL (31.5-36.5); Mean Corpuscular Volume 75 fL (80-100); NEUTROPHILS ABSOLUTE AUTO 13.67 K/mm3 (1.96-9.15); NEUTROPHILS PERCENT AUTO 86 % (41-73); Platelet Count 483 K/mm3 (150-400); RDW Coefficient Variation 17.2 % (11.7-14.2); RDW Standard Deviation 45.9 fL (35.1-46.3); Red Blood Cell Count 3.72 M/mm3 (3.80-5.20); White Blood Cell Count 15.89 K/mm3 (4.00-11.30)
[2020-12-17 04:17] LABS: Anion Gap 4 mmol/L (6-16); Blood Urea Nitrogen 26 mg/dL (8-24); Bun/Creatinine Ratio 45.9 (12.0-20.0); CO2, Blood 30 mmol/L (21-32); Calcium, Blood 7.9 mg/dL (8.5-10.1); Chloride, Blood 111 mmol/L (98-108); Creatinine, Blood 0.57 mg/dL (0.40-1.00); Glomerular Filtration Rate >60 (60-); Glucose, Blood 101 mg/dL (70-99); Magnesium, Blood 2.7 mg/dL (1.6-2.4); Phosphorus, Blood 3.4 mg/dL (2.5-4.9); Potassium, Blood 4.2 mmol/L (3.5-5.5); Sodium, Blood 145 mmol/L (136-145)
--- NOTE | 2020-12-17 05:39 | NUR ---
NO ACUTE CHANGES T/O SHIFT. PT SLEPT MAJORITY OF SHIFT.
--- NOTE | 2020-12-17 09:13 | NUR ---
Assumed care of pt at 0700. Bedside report received from Casey DEY. Pt A&O x 4. Pleasant and cooperative with care. Pt on 2 LPM NC initially but has been titrated up to 4 LPM as SpO2 drops when pt is talking. SpO2 90% or greater at this time. Lungs coarse t/o. Pt has productive cough. This RN educated pt on flutter valve usage to assist with expectorating secretions. Pt demostrated correct usage of flutter valve. Pt using yankauer to self-suction. ST per monitor. BP stable. Pt stated the brown was irritating every time she coughed. Brown removed. Attends in place. Pt assisted up to chair. Receptive to instruction, tolerates activity well. Pt talking to family on phone. Dr Villatrate in to see pt early this AM. States he would be okay with patient transferring out of ICU but this decision is ultimately up to Dr Red. Provider stated okay to order PT/OT for patient. Diet advanced to soft diet. Pt tolerated breakfast well w/o signs of aspiration.
--- NOTE | 2020-12-17 11:29 | NUR ---
Dr Red in to see patient and states that patient may be medical floor status with telemetry. Discussed HR that is 110s, sinus. No new orders at this time. Provider states to continue monitoring with telemetry.
--- NOTE | 2020-12-17 17:57 | NUR ---
Pt is A&O x 4. Answers questions. Follows commands. Verbalizes needs. Pleasant and cooperative with care. Receptive to education. Utilizes call light appropriately. Compliant with fall prevention precautions and does not attempt to mobilize without staff assist. Pt took shower today, independently. Tolerated well. Pt using 2 LPM NC with activity and at rest. Lungs coarse t/o. Cough stronger than yesterday, but less productive. Flutter valve at bedside. Pt talkative and often interacts with family using personal cell phone. ST per monitor. BP stable. Leonard catheter removed. Pt has voided 2x since removal. PIV placed to BHUPENDRA. Central line removed. Pt tolerated well. Bed in lowest position. Call light in reach. Will continue to closely monitor utnil care handoff and bedside report with oncoming RN.
--- NOTE | 2020-12-17 21:48 | NUR ---
SEE SHIFT ASSESSMENT. PT IS STABLE. NO ACUTE CHANGES.
--- NOTE | 2020-12-17 22:15 | NUR ---
REPORT GIVEN TO ROOM 356 NURSE. PT TRANSPORTED VIA WHEELCHAIR TO FLOOR
[2020-12-18 05:20] LABS: BASOPHILS ABSOLUTE AUTO 0.02 K/mm3 (0.00-0.23); BASOPHILS PERCENT AUTO 0 % (0-2); EOSINOPHILS PERCENT AUTO 0 % (0-6); Hematocrit 29.7 % (33.0-51.0); Hemoglobin 8.8 g/dL (11.5-16.0); IMMATURE GRAN ABSOLUTE AUTO 0.13 K/mm3 (0.00-0.10); IMMATURE GRAN PERCENT AUTO 1 % (0-1); LYMPHOCYTES ABSOLUTE AUTO 1.57 K/mm3 (0.84-5.20); LYMPHOCYTES PERCENT AUTO 12 % (21-46); MONOCYTES ABSOLUTE AUTO 0.48 K/mm3 (0.16-1.47); MONOCYTES PERCENT AUTO 4 % (4-13); Mean Corpuscular HGB 22.1 pg (26.0-34.0); Mean Corpuscular HGB Conc 29.6 g/dL (31.5-36.5); Mean Corpuscular Volume 74 fL (80-100); Mean Platelet Volume 9.4 fL (9.1-12.4); NEUTROPHILS ABSOLUTE AUTO 10.95 K/mm3 (1.96-9.15); NEUTROPHILS PERCENT AUTO 83 % (41-73); Platelet Count 511 K/mm3 (150-400); RDW Coefficient Variation 17.1 % (11.7-14.2); RDW Standard Deviation 45.8 fL (35.1-46.3); Red Blood Cell Count 3.99 M/mm3 (3.80-5.20); White Blood Cell Count 13.15 K/mm3 (4.00-11.30)
[2020-12-18 05:27] LABS: Anion Gap 4 mmol/L (6-16); Blood Urea Nitrogen 24 mg/dL (8-24); Bun/Creatinine Ratio 41.1 (12.0-20.0); CO2, Blood 30 mmol/L (21-32); Calcium, Blood 8.7 mg/dL (8.5-10.1); Chloride, Blood 106 mmol/L (98-108); Creatinine, Blood 0.58 mg/dL (0.40-1.00); Glomerular Filtration Rate >60 (60-); Glucose, Blood 135 mg/dL (70-99); Magnesium, Blood 2.5 mg/dL (1.6-2.4); Phosphorus, Blood 3.3 mg/dL (2.5-4.9); Potassium, Blood 4.5 mmol/L (3.5-5.5); Sodium, Blood 140 mmol/L (136-145)
--- NOTE | 2020-12-18 06:37 | NUR ---
SONAR TECHNICIAN SUMMARY PT TRANSFERRED FROM ICU TO MED FLOOR AT 2215, RECEIVED REPORT FROM TIBURCIO NARAYANAN. PT A&OX4, ABLE TO MAKE NEEDS KNOWN, PLEASANT AND COOPERATIVE TO CARE. PT MEDICATED FOR PAIN PER EMAR. DENIES CP. PT RECEIVED BREATHING TX FROM RT FOR SOB THIS SHIFT. CONT ON 3LPM OF O2 VIA NC. SATS >90%. COARSE LS T/O NOTED. TELE SR 90'S. DENIES CP. PT SBA TO BATHROOM, DENIES DYSURIA. PT ALSO MEDICATED FOR NAUSEA THIS SHIFT. PT CALM AND RESTED IN BED AT THIS TIME. CALL LIGHT WITHIN REACH.
--- NOTE | 2020-12-18 12:01 | NUR ---
WOUND CARE: WOUND CARE COMPLETE TO BILATERAL FEET. SILVADENE CREAM & DRESSING CHANGES. PREMEDICATED c ROXICODONE 10MG; PT TOLERATED WELL; PT STATES NO FEELING IN TOES OR DISTAL TO MID-INSTEP. PT SHOWN PICTURES IN CHART FROM 12/15/20.
--- NOTE | 2020-12-18 19:16 | NUR ---
SHIFT SUMMARY: NO ACUTE CHANGES TO REPORT THIS SHIFT. PT A&O; CALM AND COOPERATIVE WITH CARE. MEDICATED FOR CHRONIC BACK PAIN PER EMAR. TELE IN PLACE; SR IN 80-90s. O2 @ 2L; ROOM AIR AT HOME; HOME O2 EVAL ORDERED FOR PRIOR TO D/C. STEROIDS TRANSITIONED TO PO. 1V CHEST XR ORDERED FOR 12/19. REPORT GIVEN TO ONCOMING RN.
[2020-12-19 04:51] LABS: BASOPHILS ABSOLUTE AUTO 0.01 K/mm3 (0.00-0.23); BASOPHILS PERCENT AUTO 0 % (0-2); EOSINOPHILS ABSOLUTE AUTO 0.01 K/mm3 (0.00-0.68); EOSINOPHILS PERCENT AUTO 0 % (0-6); Hematocrit 31.2 % (33.0-51.0); Hemoglobin 9.2 g/dL (11.5-16.0); IMMATURE GRAN ABSOLUTE AUTO 0.18 K/mm3 (0.00-0.10); IMMATURE GRAN PERCENT AUTO 1 % (0-1); LYMPHOCYTES ABSOLUTE AUTO 4.45 K/mm3 (0.84-5.20); LYMPHOCYTES PERCENT AUTO 27 % (21-46); MONOCYTES ABSOLUTE AUTO 1.33 K/mm3 (0.16-1.47); MONOCYTES PERCENT AUTO 8 % (4-13); Mean Corpuscular HGB 21.9 pg (26.0-34.0); Mean Corpuscular HGB Conc 29.5 g/dL (31.5-36.5); Mean Corpuscular Volume 74 fL (80-100); NEUTROPHILS PERCENT AUTO 63 % (41-73); NRBC ABSOLUTE 0.02 K/mm3 (0.00-0.02); NRBC Auto 0.1 /100 WBC (0.0-0.2); Platelet Count 580 K/mm3 (150-400); RDW Coefficient Variation 16.8 % (11.7-14.2); RDW Standard Deviation 44.5 fL (35.1-46.3); Red Blood Cell Count 4.21 M/mm3 (3.80-5.20); White Blood Cell Count 16.28 K/mm3 (4.00-11.30)
--- NOTE | 2020-12-19 04:56 | NUR ---
MANAGER TEST SUMMARY PT A&OX4, ABLE TO MAKE NEEDS KNOWN. PLEASANT AND COOPERATIVE TO CARE. PT MEDICATED FOR CHRONIC BACK PAIN PER EMAR. NO C/O CP, SOB OR N&V. CONT ON O2 2LPM VIA NC, SATS >90%. TELE: NSR AT 87 BPM. PT INDEPENDENT, CALLS APPROPRIATELY FOR ASSISTANCE. BED AT LOWEST POSITION. CALL LIGHT WITHIN REACH.
[2020-12-19 05:07] LABS: Anion Gap 5 mmol/L (6-16); Blood Urea Nitrogen 21 mg/dL (8-24); Bun/Creatinine Ratio 36.4 (12.0-20.0); CO2, Blood 31 mmol/L (21-32); Calcium, Blood 8.9 mg/dL (8.5-10.1); Chloride, Blood 104 mmol/L (98-108); Creatinine, Blood 0.58 mg/dL (0.40-1.00); Glomerular Filtration Rate >60 (60-); Glucose, Blood 104 mg/dL (70-99); Potassium, Blood 3.8 mmol/L (3.5-5.5); Sodium, Blood 140 mmol/L (136-145)
--- NOTE | 2020-12-19 15:06 | NUR ---
permission to provide care student nurse kristan bess recieved permission to provide care on 12-19-20
--- NOTE | 2020-12-19 15:42 | NUR ---
PT BACK FROM WORKING WITH PHYSICAL THERAPY. PT STATES SHE GOT UP AND FELT DIZZY AND LIGHTHEADED. VSS. TELE SR AT 98, DOES REPORT GOT TACHY IN THE 110'S A FEW MINUTES PEIOR BUT NOTHING SIGNIFICANT. PT REPORTS IT HAS NOW RESOLVED. PT STATES SHE THINKS SHE WORKED TO HARD TODAY. WILL CONT TO MONITOR. REMINDED PT TO GET UP SLOWLY.
--- NOTE | 2020-12-19 16:47 | NUR ---
SHIFT SUMMARY- PT A/OX4, INDEP UP IN ROOM. PT MEDICATED X1 WITH NORCO FOR LOWER BACK PAIN. LS DIMINISHED ON 2L N/C, MINIMAL SOB WITH EXERTION, OCCASIONAL WHEEZE NOTED. OCCASIONAL PRODUCTIVE COUGH. PT AMBULATED IN HALLS WITH THERAPY TWICE TODAY, PT DID REPORT FEELING DIZZY AND LIGHTHEADED AT ONE POINT AFTER THERAPY, VSS SYMPTOMS RESOLVED QUICKLY. TELE SR AT 99, PT DOES GET SLIGHTLY TACHY IN THE 110'S WITH EXERTION. POSS D/C HOME TOMORROW AFTER HOME 02 EVAL. NO OTHER ACUTE CHANGES THIS SHIFT.
--- NOTE | 2020-12-19 17:19 | NUR ---
PT REQUESTING FOR IV TO BE TAKEN, REPORTS IT IS BUGGING HER AND PLAN IS FOR DISCHARGE TOMORROW. SPOKE WITH DR LEA WHO OK'D FOR NO IV ACCESS, D/C TELE AND ORAL HALDOL.
[2020-12-20 04:50] LABS: BASOPHILS ABSOLUTE AUTO 0.04 K/mm3 (0.00-0.23); BASOPHILS PERCENT AUTO 0 % (0-2); EOSINOPHILS ABSOLUTE AUTO 0.09 K/mm3 (0.00-0.68); EOSINOPHILS PERCENT AUTO 1 % (0-6); Hematocrit 34.1 % (33.0-51.0); Hemoglobin 9.7 g/dL (11.5-16.0); IMMATURE GRAN ABSOLUTE AUTO 0.15 K/mm3 (0.00-0.10); IMMATURE GRAN PERCENT AUTO 1 % (0-1); LYMPHOCYTES ABSOLUTE AUTO 4.82 K/mm3 (0.84-5.20); LYMPHOCYTES PERCENT AUTO 40 % (21-46); MONOCYTES ABSOLUTE AUTO 1.17 K/mm3 (0.16-1.47); MONOCYTES PERCENT AUTO 10 % (4-13); Mean Corpuscular HGB 21.6 pg (26.0-34.0); Mean Corpuscular HGB Conc 28.4 g/dL (31.5-36.5); Mean Corpuscular Volume 76 fL (80-100); NEUTROPHILS PERCENT AUTO 49 % (41-73); NRBC ABSOLUTE 0.02 K/mm3 (0.00-0.02); NRBC Auto 0.2 /100 WBC (0.0-0.2); RDW Coefficient Variation 17.1 % (11.7-14.2); RDW Standard Deviation 46.2 fL (35.1-46.3); White Blood Cell Count 12.17 K/mm3 (4.00-11.30)
[2020-12-20 04:52] LABS: Mean Platelet Volume 9.1 fL (9.1-12.4); Platelet Count 464 K/mm3 (150-400)
[2020-12-20 05:10] LABS: Anion Gap 7 mmol/L (6-16); Blood Urea Nitrogen 18 mg/dL (8-24); Bun/Creatinine Ratio 31.9 (12.0-20.0); CO2, Blood 28 mmol/L (21-32); Calcium, Blood 8.5 mg/dL (8.5-10.1); Chloride, Blood 104 mmol/L (98-108); Creatinine, Blood 0.56 mg/dL (0.40-1.00); Glomerular Filtration Rate >60 (60-); Glucose, Blood 95 mg/dL (70-99); Potassium, Blood 3.7 mmol/L (3.5-5.5); Sodium, Blood 139 mmol/L (136-145)
--- NOTE | 2020-12-20 06:04 | NUR ---
55 year old Female who had lt lung collapse & was intubated in ICU contues on oxygen for resp support. HAd followup CXR 12/19/20 that showed trace lt pleural effusion. PT has nonprod cough coarse breath sounds bilat & home o2 eval pending. Planning to dc to Son & DTR in Laws home . Medicated for pain with norco 10/325 for pain haldol 2 mg po for anxiety & tessalon 2 po for cough. All rx had helpful effect. Tolerating soft bitesize diet. on lovenox refused scds.
[2020-12-20] MEDS ORDERED: Acetaminophen325 M1 PO (09:55)
[2020-12-20] MEDS ORDERED: GUAI600T33 PO (09:57)
[2020-12-20] MEDS ORDERED: BENZ100A PO (09:57)
[2020-12-20] MEDS ORDERED: LEVFLO500 PO (09:57)
[2020-12-20] MEDS ORDERED: ONDA4ODT MM (09:57)
[2020-12-20] MEDS ORDERED: VISBIOME 112.51 EACH PO (09:58)
[2020-12-20] MEDS ORDERED: Prednisone10 MG PO (10:01)
[2020-12-20] MEDS ORDERED: ALBU2.5V5 INH (10:58)
[2020-12-20] MEDS ORDERED: HALO2 PO (11:08)
--- NOTE | 2020-12-20 11:46 | NUR ---
DISCHARGE INSTRUCTIONS REVIEWED WITH PT IN DEPTH. NO IV ACCESS. JOVANY DROPPED OFF PORTABLE 02 FOR 2L CONT 02 VIA N/C. FOLLOW UP APPT MADE WITH PCP AND PULMONOLOGY. RX FAXED TO [facility]. PT ANXIOUS TO GO HOME. PT AWAITING RIDE HOME AT THIS TIME.
--- NOTE | 2020-12-20 15:21 | NUR ---
PT DISCHARGED HOME AT 1521, ESCORTED OUT VIA W/C TO D/C HOME WITH SON.
[2021-05-04] MEDS ORDERED: ALBU90OI INH (10:57)
[2021-05-04] MEDS ORDERED: ATOR80 PO (10:57)
[2021-05-04] MEDS ORDERED: FLUT1DIS5 INH (10:58)
[2021-05-04] MEDS ORDERED: Flonase 0.05% N16 GM (10:58)
[2021-05-04] MEDS ORDERED: Norco 10-325 T1 EACH PO (10:58)
[2021-05-04] MEDS ORDERED: IBUP600 PO (10:59)
[2021-05-04] MEDS ORDERED: HYDR1TAB94 PO (10:59)
[2021-05-04] MEDS ORDERED: PERCOCET 10-321 EAC6 PO (11:00)
[2021-05-04] MEDS ORDERED: OMEP20ER PO (11:00)
[2021-05-04] MEDS ORDERED: COMBIVENT RESPIM4 G1 INH (11:00)
[2021-05-04] MEDS ORDERED: SPIRIVA RESPIMAT4 G2 INH (11:01)
== END 2020-12-20 15:24 | disposition home or self-care (01) | DRG 208 ==
LOC: ER 17:20 → ICUE 23:27 → PCU 23:27 → ICUE 12-14 00:30 → MEDS 12-17 22:15
PROVIDERS: Emergency Medicine; Family Medicine; Internal Medicine Pulmonary Disease; ADMIT Family Medicine
PROC: 0BH17EZ Insertion of Endotracheal Airway into Trachea, Via Natural or Artificial Opening (ICD-10-PCS; principal; 2020-12-14)
PROC: 5A1945Z Respiratory Ventilation, 24-96 Consecutive Hours (ICD-10-PCS; 2020-12-14)
PROC: 05HM33Z Insertion of Infusion Device into Right Internal Jugular Vein, Percutaneous Approach (ICD-10-PCS; 2020-12-14)
PROC: B543ZZA Ultrasonography of Right Jugular Veins, Guidance (ICD-10-PCS; 2020-12-14)
DX: J18.9 Pneumonia, unspecified organism (principal); J96.21 Acute and chronic respiratory failure with hypoxia; J96.22 Acute and chronic respiratory failure with hypercapnia; J44.1 Chronic obstructive pulmonary disease with (acute) exacerbation; E87.2 Acidosis; T17.590A Other foreign object in bronchus causing asphyxiation, initial encounter; J98.19 Other pulmonary collapse; Z66 Do not resuscitate; Z20.822 Contact with and (suspected) exposure to COVID-19; D47.3 Essential (hemorrhagic) thrombocythemia; D63.8 Anemia in other chronic diseases classified elsewhere; E78.5 Hyperlipidemia, unspecified; F41.9 Anxiety disorder, unspecified; I44.0 Atrioventricular block, first degree; K21.9 Gastro-esophageal reflux disease without esophagitis; Z87.891 Personal history of nicotine dependence; R00.0 Tachycardia, unspecified; Z85.41 Personal history of malignant neoplasm of cervix uteri; Z85.42 Personal history of malignant neoplasm of other parts of uterus; Z96.652 Presence of left artificial knee joint
CPT/HCPCS: 0241U; 31500; 31720; 36415; 36556; 36600; 51702; 71045; 71260; 80048; 80053; 81001; 82803; 82947; 83605; 83690; 83735; 83880; 84100; 84145; 84484; 85025; 85379; 87040; 87070; 87205; 93005; 93010; 94002; 94003; 94640; 94644; 94660; 94760; 94761; 96365; 96375; 97110; 97116; 97161; 97165; 97530; 97535; 99285-25; A9270; C1751; J0456; J0696; J1630; J1650; J2060; J2250; J2405; J2704; J2920; J2930; J3010; J7030; J7050; J7060; J7512; Q2038; Q9967

== ENCOUNTER 2021-03-31 13:02 | Inpatient (IN) | payer OTHER ==
[~2021-03-31] VITALS: Ht 152.4 cm; Wt 70.3 kg
[~2021-03-31 13:02] MED LIST changes: +ALBU2.5V5 INH; +Acetaminophen325 M1 PO; +BENZ100A PO; +GUAI600T33 PO; +HALO2 PO; +LEVFLO500 PO; +ONDA4ODT MM; +Prednisone10 MG PO; +VISBIOME 112.51 EACH PO
[2021-03-31 13:33] LABS: BASOPHILS ABSOLUTE AUTO 0.09 K/mm3 (0.00-0.23); BASOPHILS PERCENT AUTO 1 % (0-2); EOSINOPHILS ABSOLUTE AUTO 0.47 K/mm3 (0.00-0.68); EOSINOPHILS PERCENT AUTO 3 % (0-6); Hematocrit 33.3 % (33.0-51.0); IMMATURE GRAN ABSOLUTE AUTO 0.08 K/mm3 (0.00-0.10); IMMATURE GRAN PERCENT AUTO 0 % (0-1); LYMPHOCYTES ABSOLUTE AUTO 1.53 K/mm3 (0.84-5.20); LYMPHOCYTES PERCENT AUTO 9 % (21-46); MONOCYTES ABSOLUTE AUTO 0.89 K/mm3 (0.16-1.47); MONOCYTES PERCENT AUTO 5 % (4-13); Mean Corpuscular HGB 22.6 pg (26.0-34.0); Mean Corpuscular Volume 75 fL (80-100); Mean Platelet Volume 9.4 fL (9.1-12.4); NEUTROPHILS ABSOLUTE AUTO 15.01 K/mm3 (1.96-9.15); NEUTROPHILS PERCENT AUTO 83 % (41-73); Platelet Count 497 K/mm3 (150-400); RDW Coefficient Variation 16.4 % (11.7-14.2); RDW Standard Deviation 44.7 fL (35.1-46.3); Red Blood Cell Count 4.42 M/mm3 (3.80-5.20); White Blood Cell Count 18.07 K/mm3 (4.00-11.30)
[2021-03-31 14:02] LABS: Alanine Aminotransfer (ALT/SGP 22 U/L (12-78); Albumin, Blood 3.6 g/dL (3.4-5.0); Alk Phos 155 U/L (50-136); Anion Gap 1 mmol/L (6-16); Aspartate Aminotrans (AST/SGOT 21 U/L (12-37); Bilirubin, Total 0.9 mg/dL (0.1-1.0); Blood Urea Nitrogen 12 mg/dL (8-24); Bun/Creatinine Ratio 19.1 (12.0-20.0); CO2, Blood 27 mmol/L (21-32); Calcium, Blood 8.7 mg/dL (8.5-10.1); Chloride, Blood 101 mmol/L (98-108); Creatinine, Blood 0.63 mg/dL (0.40-1.00); Globulin, Blood 3.7 g/dL (2.2-4.0); Glomerular Filtration Rate >60 (60-); Glucose, Blood 113 mg/dL (70-99); Potassium, Blood 3.5 mmol/L (3.5-5.5); Sodium, Blood 129 mmol/L (136-145); Total Protein, Blood 7.3 g/dL (6.4-8.2); Troponin I <0.015 ng/mL (0.000-0.040)
[2021-03-31] MEDS ORDERED: HYDROCODONE-AC1 EAC7 PO (15:20)
[2021-03-31] MEDS ORDERED: IBUP600 PO (15:20)
[2021-03-31] MEDS ORDERED: HALO2 PO (15:21)
[2021-03-31] MEDS ORDERED: SPIRIVA RESPIMAT4 G3 INH (15:23)
[2021-03-31] MEDS ORDERED: ALBU90OI INH (15:23)
--- NOTE | 2021-03-31 19:48 | NUR ---
SHIFT SUMMARY: PATIENT ADMIT (INP) FROM ED THIS SHIFT. PT A&O; CALM AND COOPERATIVE WITH CARE. NO C/O PAIN SINCE ARRIVAL ON MEDICAL. TELE IN PLACE; ST @ 105 PER ADMINISTRATIVE TECH. COPD; O2 @ 2L (HOME DOSE); LUNGS COARSE T/O. IV FLUIDS CONTINUING; AWAITING SWALLOW EVAL R/T REPEAT PNA. REPORT GIVEN TO ONCOMING RN.
--- NOTE | 2021-03-31 19:53 | NUR ---
BEDSIDE SWALLOW EVAL DONE. PT TOLERATED WELL. NO COUGHING OR WET LUNG SOUNDS NOTED. PT IS NOT IN RESPIRATORY DISTRESS. PROVIDING PUDDING THICK/HONEY THICK DIET UNTIL FURTHER EVALUATION BY SPEECH THERAPY TOMORROW.
--- NOTE | 2021-03-31 19:56 | NUR ---
PT GAVE THIS STUDENT NURSE PERMISSION TO PROVIDE CARE ON 03/31/21.
--- NOTE | 2021-03-31 22:30 | NUR ---
PT WAS OBSERVED COUGHING AFTER PO ADMINISTRATION PER JAN.
[2021-04-01 04:56] LABS: BASOPHILS ABSOLUTE AUTO 0.04 K/mm3 (0.00-0.23); BASOPHILS PERCENT AUTO 0 % (0-2); EOSINOPHILS ABSOLUTE AUTO 0.03 K/mm3 (0.00-0.68); EOSINOPHILS PERCENT AUTO 0 % (0-6); Hemoglobin 9.6 g/dL (11.5-16.0); IMMATURE GRAN ABSOLUTE AUTO 0.03 K/mm3 (0.00-0.10); IMMATURE GRAN PERCENT AUTO 0 % (0-1); LYMPHOCYTES PERCENT AUTO 6 % (21-46); MONOCYTES ABSOLUTE AUTO 0.09 K/mm3 (0.16-1.47); MONOCYTES PERCENT AUTO 1 % (4-13); Mean Corpuscular HGB 22.4 pg (26.0-34.0); Mean Corpuscular Volume 75 fL (80-100); Mean Platelet Volume 9.8 fL (9.1-12.4); NEUTROPHILS ABSOLUTE AUTO 10.12 K/mm3 (1.96-9.15); NEUTROPHILS PERCENT AUTO 92 % (41-73); Platelet Count 512 K/mm3 (150-400); RDW Coefficient Variation 16.6 % (11.7-14.2); RDW Standard Deviation 44.9 fL (35.1-46.3); Red Blood Cell Count 4.29 M/mm3 (3.80-5.20); White Blood Cell Count 11.01 K/mm3 (4.00-11.30)
--- NOTE | 2021-04-01 05:16 | NUR ---
SHIFT SUMMARY NO ACUTE CHANGES THIS SHIFT. PT HAD SWALLOW SCREENING DONE BY CHARGE NURSE; SPEECH WILL CONSULT ON 04/01/21; PT ON PUDDING THICK/HONEY THICK DIET W/OBSERVATION UNTIL. PT HAD DIFFICULTY SWALLOWING PO MEDICATION FOR THIS NURSE. PT WAS ANXIOUS AT THE BEGINNING OF SHIFT; WAS ABLE TO REST COMFORTABLY FROM 2330 ONWARD. CALL LIGHT WITHIN REACH, BED IN LOWEST POSITION, WILL CONTINURE TO MONITOR.
[2021-04-01 05:38] LABS: Anion Gap 5 mmol/L (6-16); Blood Urea Nitrogen 7 mg/dL (8-24); Bun/Creatinine Ratio 10.7 (12.0-20.0); CO2, Blood 26 mmol/L (21-32); Calcium, Blood 8.7 mg/dL (8.5-10.1); Chloride, Blood 109 mmol/L (98-108); Creatinine, Blood 0.66 mg/dL (0.40-1.00); Glomerular Filtration Rate >60 (60-); Glucose, Blood 141 mg/dL (70-99); Potassium, Blood 3.7 mmol/L (3.5-5.5)
[2021-04-01 05:39] LABS: Sodium, Blood 140 mmol/L (136-145)
--- NOTE | 2021-04-01 19:29 | NUR ---
PT AAOX4. COOPERATIVE WITH CARE. IDEPENDENT IN ROOM. ST EVAL MECHANICAL SOFT WITH THIN LIQUIDS. MEDS ONE AT A TIME IN APPLESAUCE GUEVARA HAS IMPROVED AND IS RELIEVED BY REST. PT EDUCATED ON IS AND ACAPELLA USE. SHE IS ABLE TO VERBALIZE INSTUCTIONS. SPUTUM AND UA CPMPLETE. L SHOULDER IV INFILTRATED AND REMOVED. ATTEMPTED RIGHT AND LEFT AC WITHOUT SUCCESS. NOC RN NOTIFIED.
[2021-04-01] MEDS ORDERED: Haloperidol2 MG PO (19:36)
--- NOTE | 2021-04-01 19:39 | NUR ---
PT GAVE THIS STUDENT NURSE PERMISSION TO PROVIDE CARE ON 04/01/21.
--- NOTE | 2021-04-02 04:50 | NUR ---
SHIFT SUMMARY NO ACUTE CHANGES THIS SHIFT. IV INFILTRATED ON PREVIOUS SHIFT; POWERGLIDE PLACED IN L UPPER ARM. MEDICATED PER EMAR FOR PAIN X2 (BACK & MATAMOROS) & ANXIETY X1; FENTANYL DID NOT RESOLVE PAIN. SLEPT AFTER ADMIN OF TORADOL. NORCO FOUND @ PT BEDSIDE &SENT TO [facility]; RECEIPT LOCATED IN CHART. PRIMARY RN VERIFIED COUNT W/PT. CALL LIGHT WITHIN REACH. WILL CONTINUE TO MONITOR.
--- NOTE | 2021-04-02 17:21 | NUR ---
PT AAOX4 AND COOPERATIVE WITH CARE. INDEPENDENT IN ROOM. PT HOME PAIN MEDICATION SCHEDULE UPDATED IN EMAR WITH GOOD RESULTS. PAIN AT TOLERABLE LEVEL THROUGHOUT SHIFT. APPETITE GOOD, REGULAR BOWEL PATTERN. PT RECIEVED SPECTRAL SCIENTIST CONSULT WITH EDUCATION ON MECHANICAL SOFT DIET. ACAPELLA AND IS EDUCATION REINFORCED. SECOND SPUTUM SAMPLE COLLECTED AND SENT TO LAB. RR EVEN AND UNLABORED ON RA. MILD GUEVARA RELIEVED BY REST. LUNG WHEEZY THROUGHOUT. UNABLE TO FLUSH POWERGLIDE. PIN MACHINE TENDER JENNA AND ALBA ABLE TO TROUBLESHOOT, POWERGILDE NOW WORKING WNL. FLUIDS RUNNING TKO AT PT REQUEST. PT HAS NO QUESTIONS OR CONCERNS AT THIS TIME. WILL CONTINUE TO MONITOR UNTIL REPORT GIVEN TO NOC RN
--- NOTE | 2021-04-03 06:23 | NUR ---
SHIFT SUMMARY NO ACUTE CHANGES THIS SHIFT, PT AMBULATED IN HALLWAY THIS SHIFT ABOUT 100 FT BEFORE BED (TOLERATED WELL), MEDICATED 1X FOR PAIN (BACK & HEAD), 1X FPOR ANXIETY AT BEDTIME, NO OTHER C/O ANY KIND, SLEPT T/O THE NIGHT, CALL LIGHT IN REACH, WILL CONT TO MONITOR UNTIL REPORT GIVEN TO DAY RN.
--- NOTE | 2021-04-03 16:23 | NUR ---
Palliative Care Consult for AD/POLST. Pt admitted to hospital for Sepsis due to PNA. Pt medical history and comorbidities include: COPD, Hiatal Hernia, Hyperlipidemia, and GERD. Pt resting in bed and is A&O. Pt reports current regimen is managing her pain. Pt reports dyspnea has improved. Engaged in therapeutuc listening as Pt reports living alone with one her grandchildren. Pt lives in a trailer and her son, daughter in law, and her sister are supportive of her needs. Pt reports independence with her ADLs. Listened as Pt reports alcohol and drug counselor will prescribe medications and on occasion those medications are not convered by her health insurance. Offered suggestions of asking her PCP's office to assist with getting set up with drug [employer] charitable department or to ask MD for a therapeutic equivalent medication that the insurance will cover. Continued therapeutic listening and answered questions. Engaged in therapeutic discussion regarding advanced directives. Pt expresses interest in learning more. Provided AD and educated on life sustaining measures and each section to complete. Pt reports plan to discuss further with her son who she plans to appoint as her primary healthcare motor vehicle representative. Pt expresses appreciation of visit and reports no other concerns at this time. Palliative Care will remain available.
--- NOTE | 2021-04-03 18:05 | NUR ---
SHIFT SUMMARY PT IS A&OX4, ABLE TO MAKE NEEDS KNOWN. PLEASANT AND COOPERATIVE TO CARE. MEDICATED FOR PAIN PER EMAR. DENIES CP / SOB / N&V. NO ACUTE CHANGES NOTED TO PT THIS SHIFT. CONTINUES ON O2 2LPM VIA NC. SATS >92%. PT RESTING IN ROOM AT THIS TIME, NO COMPLAINTS OR ISSUES NOTED. BED AT LOWEST POSITION. CALL LIGHT WITHIN REACH.
--- NOTE | 2021-04-04 04:42 | NUR ---
SHIFT SUMMARY NO ACUTE CHANGES THIS SHIFT, MEDICATED PER MAR FOR PAIN (BACK), NO OTHER C/O ANY KIND, UP INDEP FOR A WALK IN HALLWAY BEFORE BED, SLEPT T/O THE NIGHT & SLEEPING AT THIS TIME, CALL LIGHT IN REACH, WILL CONT TO MONITOR UNTIL REPORT GIVNE TO DAY RN.
[2021-04-04 05:13] LABS: Hematocrit 28.3 % (33.0-51.0); Hemoglobin 8.4 g/dL (11.5-16.0); Mean Corpuscular HGB 22.7 pg (26.0-34.0); Mean Corpuscular HGB Conc 29.7 g/dL (31.5-36.5); Mean Corpuscular Volume 77 fL (80-100); Mean Platelet Volume 9.6 fL (9.1-12.4); Platelet Count 566 K/mm3 (150-400); RDW Coefficient Variation 17.2 % (11.7-14.2); RDW Standard Deviation 47.7 fL (35.1-46.3); White Blood Cell Count 11.79 K/mm3 (4.00-11.30)
[2021-04-04 05:39] LABS: Anion Gap 6 mmol/L (6-16); Blood Urea Nitrogen 19 mg/dL (8-24); Bun/Creatinine Ratio 25.4 (12.0-20.0); CO2, Blood 29 mmol/L (21-32); Calcium, Blood 8.3 mg/dL (8.5-10.1); Chloride, Blood 107 mmol/L (98-108); Creatinine, Blood 0.75 mg/dL (0.40-1.00); Glomerular Filtration Rate >60 (60-); Glucose, Blood 99 mg/dL (70-99); Potassium, Blood 3.7 mmol/L (3.5-5.5); Sodium, Blood 142 mmol/L (136-145)
--- NOTE | 2021-04-04 17:31 | NUR ---
SHIFT SUMMARY PT A&OX4, ABLE TO MAKE NEEDS KNOWN. PLEASANT AND COOPERATIVE TO CARE. MEDICATED FOR PAIN PER EMAR. ALSO MEDICATED FOR HEARTBURN. NO C/O CP OR N&V. PT REPORTED THAT SHE HAS A WORSENING DRY COUGH AND REPORTED THAT SHE DOES NOT FEEL COMFORTABLE AND SAFE TO GO HOME IF SHE IS TO BE DISCHARGE TODAY FROM THE HOSPITAL. REPORTED PT'S CONCERNS TO DR. WIN. TELEPHONE ORDERS NOTED. PT CALM AND COMFORTABLE IN ROOM AT THIS TIME, PT TOLERATING SOFT BITE SIZE DIET. PT IS INDEPENDENT IN THE ROOM, CALLS APPROPRIATELY FOR ASSISTANCE. BED AT LOWEST POSITION. CALL LIGHT WITHIN REACH.
--- NOTE | 2021-04-04 18:00 | NUR ---
Spiritual care note: No was talkative and reports hope for a better future. She states she needs one surgery, "and then I'll be good to go." She has been quite sick these past few months and is looking forward to feeling better. She is well-loved and supported by family and was appreciative of prayer. She is unclear how exactly to set-up required surgery, and I informed her that this would be arranged/explained before she gets discharged. I will remain available.
--- NOTE | 2021-04-05 06:48 | NUR ---
SHIFT SUMMARY NO ACUTE CHANGES THIS SHIFT, MEDICATED 1X FOR PAIN, 1X FOR ANXIETY, NO OTHER C/O ANY KIND, SLEPT T/O THE NIGHT & SLEEPING AT THIS TIME, CALL LIGHT IN REACH, WILL CONT TO MONITOR UNTIL REPORT GIVEN TO DAY RN.
[2021-04-05] MEDS ORDERED: PRED20 PO (11:25)
[2021-04-05] MEDS ORDERED: BENZ100A PO (11:25)
[2021-04-05] MEDS ORDERED: DOXY100 PO (11:25)
[2021-04-05] MEDS ORDERED: GUAI600T33 PO (11:25)
--- NOTE | 2021-04-05 12:08 | NUR ---
DISCHARGE INSTRUCTIONS COMPLETED AND DISCUSSED WITH PT EXPRESSING UNDERSTANDING. [facility] TO [facility] VIA W/C AFTER STOPPING AT PHARMACY TO MANAGER OF [facility]. DAUGHTER IN LAW TO PICK PT UP AT ENTRANCE.
[2021-05-04] MEDS ORDERED: ATOR80 PO (10:57)
[2021-05-04] MEDS ORDERED: ALBU90OI INH (10:57)
[2021-05-04] MEDS ORDERED: FLUT1DIS5 INH (10:58)
[2021-05-04] MEDS ORDERED: Norco 10-325 T1 EACH PO (10:58)
[2021-05-04] MEDS ORDERED: Flonase 0.05% N16 GM (10:58)
[2021-05-04] MEDS ORDERED: HYDR1TAB94 PO (10:59)
[2021-05-04] MEDS ORDERED: IBUP600 PO (10:59)
[2021-05-04] MEDS ORDERED: COMBIVENT RESPIM4 G1 INH (11:00)
[2021-05-04] MEDS ORDERED: PERCOCET 10-321 EAC6 PO (11:00)
[2021-05-04] MEDS ORDERED: OMEP20ER PO (11:00)
[2021-05-04] MEDS ORDERED: SPIRIVA RESPIMAT4 G2 INH (11:01)
== END 2021-04-05 12:06 | disposition home or self-care (01) | DRG 872 ==
LOC: ER 13:02 → MEDS 15:26
PROVIDERS: Emergency Medicine; Internal Medicine; ADMIT Internal Medicine
DX: A41.9 Sepsis, unspecified organism (principal); J44.1 Chronic obstructive pulmonary disease with (acute) exacerbation; J96.11 Chronic respiratory failure with hypoxia; K21.9 Gastro-esophageal reflux disease without esophagitis; K44.9 Diaphragmatic hernia without obstruction or gangrene; D64.9 Anemia, unspecified; E78.5 Hyperlipidemia, unspecified; Z96.652 Presence of left artificial knee joint; Z87.891 Personal history of nicotine dependence; Z90.710 Acquired absence of both cervix and uterus; Z98.890 Other specified postprocedural states; Z79.899 Other long term (current) drug therapy
CPT/HCPCS: 36415; 71045; 74230; 80048; 80053; 83605; 84145; 84484; 85025; 85027; 87040; 87070; 87205; 87449; 92526; 92610; 92611; 93005; 93010; 94640; 94760; 96365; 96375; 99285-25; A9270; C9113; J0456; J0696; J1650; J1885; J2920; J3010; J7030; J7050; J7512

== ENCOUNTER 2021-09-01 09:30 | Day surgery (SDC) | payer OTHER ==
[~2021-09-01] VITALS: Ht 152.4 cm; Wt 74.3 kg
[~2021-09-01 09:30] MED LIST changes: +ATOR80 PO; +DOXY100 PO; +FLUT1DIS5 INH; +HYDROCODONE-AC1 EAC7 PO; +Haloperidol2 MG PO; +OMEP20ER PO; +PERCOCET 10-321 EAC6 PO; +SPIRIVA RESPIMAT4 G2 INH; +SPIRIVA RESPIMAT4 G3 INH
== END 2021-09-01 11:02 | disposition home or self-care (01) ==
LOC: ORSCSDS 09:30
PROVIDERS: Surgery
PROC: 0DB48ZX Excision of Esophagogastric Junction, Via Natural or Artificial Opening Endoscopic, Diagnostic (ICD-10-PCS; principal; 2021-09-01 11:00)
PROC: 0DB68ZX Excision of Stomach, Via Natural or Artificial Opening Endoscopic, Diagnostic (ICD-10-PCS; principal; 2021-09-01 11:00)
DX: K21.9 Gastro-esophageal reflux disease without esophagitis (principal); K44.9 Diaphragmatic hernia without obstruction or gangrene; K20.90 Esophagitis, unspecified without bleeding; K27.9 Peptic ulcer, site unspecified, unspecified as acute or chronic, without hemorrhage or perforation; Z87.891 Personal history of nicotine dependence; Z79.899 Other long term (current) drug therapy; J44.9 Chronic obstructive pulmonary disease, unspecified
CPT/HCPCS: 88305; 88342; J0330; J0461; J2405; J2704; J7120

== ENCOUNTER 2021-09-27 17:25 | Inpatient (IN) | payer OTHER ==
[~2021-09-27] VITALS: Ht 152.4 cm; Wt 74.8 kg
[2021-09-27] MEDS ORDERED: OMEP20ER PO (18:04)
[2021-09-27] MEDS ORDERED: ATOR20 (18:04)
[2021-09-27] MEDS ORDERED: ALBU90OI INH (18:05)
[2021-09-27] MEDS ORDERED: VITAMIN D32000 UNI1 PO (18:06)
[2021-09-27] MEDS ORDERED: Ventolin5 MG/1 ML INH (18:08)
[2021-09-27] MEDS ORDERED: IBUP600 PO (18:09)
[2021-09-27] MEDS ORDERED: HALO2 PO (18:09)
[2021-09-27 18:14] LABS: BASOPHILS ABSOLUTE AUTO 0.06 K/mm3 (0.00-0.23); BASOPHILS PERCENT AUTO 1 % (0-2); EOSINOPHILS ABSOLUTE AUTO 0.42 K/mm3 (0.00-0.68); EOSINOPHILS PERCENT AUTO 4 % (0-6); Hematocrit 29.7 % (33.0-51.0); Hemoglobin 8.9 g/dL (11.5-16.0); IMMATURE GRAN ABSOLUTE AUTO 0.02 K/mm3 (0.00-0.10); IMMATURE GRAN PERCENT AUTO 0 % (0-1); LYMPHOCYTES ABSOLUTE AUTO 1.71 K/mm3 (0.84-5.20); LYMPHOCYTES PERCENT AUTO 18 % (21-46); MONOCYTES PERCENT AUTO 7 % (4-13); Mean Corpuscular Volume 70 fL (80-100); Mean Platelet Volume 9.3 fL (9.1-12.4); NEUTROPHILS ABSOLUTE AUTO 6.82 K/mm3 (1.96-9.15); NEUTROPHILS PERCENT AUTO 70 % (41-73); Platelet Count 544 K/mm3 (150-400); RDW Coefficient Variation 16.2 % (11.7-14.2); RDW Standard Deviation 40.9 fL (35.1-46.3); Red Blood Cell Count 4.24 M/mm3 (3.80-5.20); White Blood Cell Count 9.73 K/mm3 (4.00-11.30)
[2021-09-27 18:45] LABS: Alanine Aminotransfer (ALT/SGP 26 U/L (12-78); Albumin, Blood 3.5 g/dL (3.4-5.0); Albumin/Globulin Ratio 0.9 (0.8-1.8); Alk Phos 153 U/L (50-136); Anion Gap 6 mmol/L (6-16); Aspartate Aminotrans (AST/SGOT 20 U/L (12-37); Bilirubin, Total 0.3 mg/dL (0.1-1.0); Blood Urea Nitrogen 7 mg/dL (8-24); Bun/Creatinine Ratio 10.3 (12.0-20.0); CO2, Blood 27 mmol/L (21-32); Calcium, Blood 8.7 mg/dL (8.5-10.1); Chloride, Blood 107 mmol/L (98-108); Creatinine, Blood 0.68 mg/dL (0.40-1.00); Globulin, Blood 4.1 g/dL (2.2-4.0); Glomerular Filtration Rate >60 (60-); Glucose, Blood 132 mg/dL (70-99); Potassium, Blood 2.7 mmol/L (3.5-5.5); Sodium, Blood 140 mmol/L (136-145); Total Protein, Blood 7.6 g/dL (6.4-8.2); Troponin I <0.015 ng/mL (0.000-0.040)
[2021-09-27 18:49] LABS: Influenza A, PCR NEGATIVE (NEGATIVE); Influenza B, PCR NEGATIVE (NEGATIVE); Resp Syncytial Virus, PCR NEGATIVE (NEGATIVE); SARS-Cov-2 (COVID-19) PCR, MMC NEGATIVE (NEGATIVE)
[2021-09-27] MEDS ORDERED: BUDESONIDE-FO10.2 G2 INH (21:49)
[2021-09-27] MEDS ORDERED: COMBIVENT RESPIM4 G1 INH (21:52)
[2021-09-27] MEDS ORDERED: ONDA4ODT MM (21:53)
[2021-09-27] MEDS ORDERED: NARCAN4 M1 (21:56)
[2021-09-27] MEDS ORDERED: CATAPRES0.1 MG PO (22:01)
[2021-09-27 22:23] LABS: Base Excess Venous 0.1 mmol/L; Bicarbonate Venous 24.4 mmol/L (24.0-30.0); PCO2 Venous 45.1 mmHg (38-42); PO2 Venous 88.7 mmHg (38-42); pH Blood Venous 7.36 (7.34-7.37)
--- NOTE | 2021-09-28 06:17 | NUR ---
ADMISSION SUMMARY PT IS AA&OX4. ADMITTED FOR COPD EXARCEBATION. PT WAS ON 4L O2 VIA NC BUT HAD DIFFICULTY BREATHING. RT WAS CALLED, BREATHING TREATMENT ADMINISTERED, PT FELT A BIT BETTER. DR. LÓPEZ NOTIFIED. BIPAP MACHINE ON HIGH NIECY O2 ORDERED AND ADMINISTERED. PT'S PRESENT O2 SAT IN THE LOW 90S. PT MEDICATED FOR ANXIETY X1 WITH GOOD EFFECTS. ADLS PROVIDED, SAFETY MEASURES IN PLACE. WILL CONTINUE TO MONITOR.
[2021-09-28 09:08] LABS: Alanine Aminotransfer (ALT/SGP 26 U/L (12-78); Albumin, Blood 3.3 g/dL (3.4-5.0); Albumin/Globulin Ratio 0.8 (0.8-1.8); Alk Phos 143 U/L (50-136); Anion Gap 7 mmol/L (6-16); Aspartate Aminotrans (AST/SGOT 21 U/L (12-37); Bilirubin, Total 0.3 mg/dL (0.1-1.0); Blood Urea Nitrogen 9 mg/dL (8-24); Bun/Creatinine Ratio 15.3 (12.0-20.0); CO2, Blood 27 mmol/L (21-32); Calcium, Blood 8.7 mg/dL (8.5-10.1); Chloride, Blood 109 mmol/L (98-108); Creatinine, Blood 0.59 mg/dL (0.40-1.00); Globulin, Blood 4.2 g/dL (2.2-4.0); Glomerular Filtration Rate >60 (60-); Glucose, Blood 148 mg/dL (70-99); Potassium, Blood 3.4 mmol/L (3.5-5.5); Sodium, Blood 143 mmol/L (136-145); Total Protein, Blood 7.5 g/dL (6.4-8.2)
[2021-09-28 11:13] LABS: BASOPHILS ABSOLUTE AUTO 0.04 K/mm3 (0.00-0.23); BASOPHILS PERCENT AUTO 0 % (0-2); EOSINOPHILS PERCENT AUTO 0 % (0-6); Hematocrit 29.5 % (33.0-51.0); Hemoglobin 8.7 g/dL (11.5-16.0); IMMATURE GRAN ABSOLUTE AUTO 0.03 K/mm3 (0.00-0.10); IMMATURE GRAN PERCENT AUTO 0 % (0-1); LYMPHOCYTES ABSOLUTE AUTO 0.79 K/mm3 (0.84-5.20); LYMPHOCYTES PERCENT AUTO 7 % (21-46); MONOCYTES ABSOLUTE AUTO 0.52 K/mm3 (0.16-1.47); MONOCYTES PERCENT AUTO 4 % (4-13); Mean Corpuscular HGB Conc 29.5 g/dL (31.5-36.5); Mean Corpuscular Volume 71 fL (80-100); Mean Platelet Volume 9.6 fL (9.1-12.4); NEUTROPHILS ABSOLUTE AUTO 10.73 K/mm3 (1.96-9.15); NEUTROPHILS PERCENT AUTO 89 % (41-73); Platelet Count 571 K/mm3 (150-400); RDW Coefficient Variation 16.2 % (11.7-14.2); RDW Standard Deviation 41.6 fL (35.1-46.3); Red Blood Cell Count 4.15 M/mm3 (3.80-5.20); White Blood Cell Count 12.11 K/mm3 (4.00-11.30)
[2021-09-29 05:52] LABS: Hematocrit 29.3 % (33.0-51.0); Hemoglobin 8.5 g/dL (11.5-16.0); Mean Corpuscular HGB 20.7 pg (26.0-34.0); Mean Corpuscular Volume 71 fL (80-100); Mean Platelet Volume 9.2 fL (9.1-12.4); Platelet Count 559 K/mm3 (150-400); RDW Coefficient Variation 16.5 % (11.7-14.2); RDW Standard Deviation 42.2 fL (35.1-46.3); Red Blood Cell Count 4.11 M/mm3 (3.80-5.20); White Blood Cell Count 13.29 K/mm3 (4.00-11.30)
--- NOTE | 2021-09-29 06:16 | NUR ---
SHIFT SUMMARY PT AA&OX4. ABLE TO MAKE NEEDS KNOWN. SCHEDULED NEB TREATMENTS ADMINISTERED. PT'S O2 SAT IN THE 90S. 0330 PT STARTED COUGHING AND WHEEZING. C/O SOB, O2 SAT STILL IN THE LOW 90S. RT WAS CALLED, ADMINISTERED PRN BREATHING TREATMENT WITH GOOD EFFECTS. PT C/O ANXIETY. PRN ANXIETY MED ADMINISTERED WITH GOOD EFFECTS. PT PRESENTLY SLEEPING. ADLS PROVIDED, SAFETY MEASURES IN PLACE. WILL CONTINUE TO MONITOR.
[2021-09-29 06:26] LABS: Alanine Aminotransfer (ALT/SGP 21 U/L (12-78); Albumin/Globulin Ratio 0.8 (0.8-1.8); Alk Phos 123 U/L (50-136); Anion Gap 6 mmol/L (6-16); Aspartate Aminotrans (AST/SGOT 21 U/L (12-37); Bilirubin, Total 0.3 mg/dL (0.1-1.0); Blood Urea Nitrogen 16 mg/dL (8-24); CO2, Blood 26 mmol/L (21-32); Calcium, Blood 8.5 mg/dL (8.5-10.1); Chloride, Blood 112 mmol/L (98-108); Creatinine, Blood 0.64 mg/dL (0.40-1.00); Globulin, Blood 3.9 g/dL (2.2-4.0); Glomerular Filtration Rate >60 (60-); Glucose, Blood 136 mg/dL (70-99); Sodium, Blood 144 mmol/L (136-145); Total Protein, Blood 6.9 g/dL (6.4-8.2)
[2021-09-30 06:03] LABS: BASOPHILS ABSOLUTE AUTO 0.02 K/mm3 (0.00-0.23); BASOPHILS PERCENT AUTO 0 % (0-2); EOSINOPHILS PERCENT AUTO 0 % (0-6); Hematocrit 28.2 % (33.0-51.0); Hemoglobin 8.2 g/dL (11.5-16.0); IMMATURE GRAN ABSOLUTE AUTO 0.11 K/mm3 (0.00-0.10); IMMATURE GRAN PERCENT AUTO 1 % (0-1); LYMPHOCYTES ABSOLUTE AUTO 1.59 K/mm3 (0.84-5.20); LYMPHOCYTES PERCENT AUTO 8 % (21-46); MONOCYTES ABSOLUTE AUTO 0.67 K/mm3 (0.16-1.47); MONOCYTES PERCENT AUTO 3 % (4-13); Mean Corpuscular HGB 20.7 pg (26.0-34.0); Mean Corpuscular HGB Conc 29.1 g/dL (31.5-36.5); Mean Corpuscular Volume 71 fL (80-100); Mean Platelet Volume 9.8 fL (9.1-12.4); NEUTROPHILS ABSOLUTE AUTO 18.11 K/mm3 (1.96-9.15); NEUTROPHILS PERCENT AUTO 88 % (41-73); Platelet Count 564 K/mm3 (150-400); RDW Coefficient Variation 16.5 % (11.7-14.2); RDW Standard Deviation 42.6 fL (35.1-46.3); Red Blood Cell Count 3.96 M/mm3 (3.80-5.20)
--- NOTE | 2021-09-30 06:28 | NUR ---
SHIFT SUMMARY PT AA&OX4. ABLE TO MAKE NEEDS KNOWN. PT IS ON HIGH NIECY O2 WITH PRESENT SATURATION IN 92. PT DENIES PAIN OR DISCOMFORT ON THIS SHIFT. PT C/O OF ANXIETY, PRN ANXIETY MED ADMINISTERED X1 ON THIS SHIFT WITH GOOD EFFECTS. PT IS PRESENTLY SLEEPING, CALL LIGHT WITHIN REACH, ADLS PROVIDED, SAFETY MEASURES IN PLACE. WILL CONTINUE TO MONITOR.
[2021-09-30 06:42] LABS: Anion Gap 5 mmol/L (6-16); Blood Urea Nitrogen 23 mg/dL (8-24); Bun/Creatinine Ratio 33.8 (12.0-20.0); CO2, Blood 29 mmol/L (21-32); Calcium, Blood 9.5 mg/dL (8.5-10.1); Chloride, Blood 105 mmol/L (98-108); Creatinine, Blood 0.68 mg/dL (0.40-1.00); Glomerular Filtration Rate >60 (60-); Glucose, Blood 137 mg/dL (70-99); Potassium, Blood 4.4 mmol/L (3.5-5.5); Sodium, Blood 139 mmol/L (136-145)
--- NOTE | 2021-09-30 16:09 | NUR ---
DAY SHIFT SUMMARY PT REQUEST FOR ATIVAN THIS MORNING D/T ANXIETY. [id number] CAME IN FOR VISIT AND BROUGHT PT PIE. ON TELE PER TOUCH UP EDGER IN NSR WITH HR OF 93. PLESANT AND QUIET MOST OF DAY. CALL LIGHT WITHIN REACH. INDEPENDENT IN ROOM
--- NOTE | 2021-10-01 05:41 | NUR ---
SHIFT SUMMARY PT IS A&OX4. ABLE TO MAKE NEEDS KNOWN. NO ACUTE CHANGES ON THIS SHIFT. PT IS COOPERATIVE WITH CARE. ADLS PROVIDED, SAFETY MEASURES IN PLACE. WILL CONTINUE TO MONITOR.
[2021-10-01 08:54] LABS: Hematocrit 30.3 % (33.0-51.0); Hemoglobin 8.8 g/dL (11.5-16.0); Mean Corpuscular HGB 20.5 pg (26.0-34.0); Mean Corpuscular Volume 71 fL (80-100); Platelet Count 538 K/mm3 (150-400); RDW Coefficient Variation 16.4 % (11.7-14.2); RDW Standard Deviation 41.7 fL (35.1-46.3); White Blood Cell Count 16.61 K/mm3 (4.00-11.30)
--- NOTE | 2021-10-01 17:33 | NUR ---
PATIENT A/OX4, UP INDEPENDENTLY IN ROOM. MAINTAING SATS >90% ON 3L O2 VIA NC. MEDICATED X2 THIS SHIFT FOR HEADACHE AND COUGH. POWERGLIDE TO YOLANDA WNL AND SL. STEROID CHANGED TO PO STARTING TOMORROW. SKIN INTACT. VSS. NO NEW CONCERNS THIS SHIFT. PATIENT IS PLEASANT AND COOPERATIVE WITH CARE.
--- NOTE | 2021-10-02 00:34 | NUR ---
PT REFUSING BREATHING TREATMENTS WITH RESP THERAPIST, PT STATES SHE PREFERS TO SLEEP AND DOESN'T WANT TO BE DISTURBED.
--- NOTE | 2021-10-02 04:03 | NUR ---
SHIFT SUMMARY TABBY IS SATING WELL, ABOVE 96% ON 3LPM VIA NC. SHE C/O HARSH COUGH THAT PRODUCES THICK MCCRAY SPUTUM. PT'S YOLANDA POWERGLIDE FLUSHES WELL. REQUESTED HER "ANXIETY MEDICATION" AND RECEIVED ATIVAN PRN. TABBY DIDN'T SLEEP WELL THIS EVENING, STATING SHE HAD A HEADACHE. SHE IS INDEPENDENT TO BEDSIDE COMMODE. VSS, NO ACUTE CHANGES. WILL CONTINUE TO MONITOR UNTIL GIVING REPORT TO DAYTIME NURSE.
[2021-10-02 04:55] LABS: Hematocrit 30.8 % (33.0-51.0); Hemoglobin 8.9 g/dL (11.5-16.0); Mean Corpuscular HGB 20.4 pg (26.0-34.0); Mean Corpuscular HGB Conc 28.9 g/dL (31.5-36.5); Mean Corpuscular Volume 71 fL (80-100); Mean Platelet Volume 9.4 fL (9.1-12.4); Platelet Count 647 K/mm3 (150-400); RDW Coefficient Variation 16.4 % (11.7-14.2); RDW Standard Deviation 41.9 fL (35.1-46.3); Red Blood Cell Count 4.36 M/mm3 (3.80-5.20); White Blood Cell Count 19.77 K/mm3 (4.00-11.30)
--- NOTE | 2021-10-02 08:00 | NUR ---
pt sitting up on the side of the bed for breakfast, she is tearful about going home today, she states she has a 5yr old grandson she takes care of and doesn't feel able to do so, spoke with her for a bit until she calmed, will give ativan, she is a/ox3, cooperative with care, follows commands well, denies pain at this time, lungs are course with exp wheezing t/o, resp even and unlabored, harsh productive cough noted, she is brining up green sputum, currently on 2.5 liters o2 via n/c, resp even and unlabored at rest, hrr, no edema noted, ppp+2, cap refill <3sec, vs stable, afebrile, iv site is power glide site is clear and patent, btx4, abd flat soft nontender, voids without diff, skin c/w/d, magen, liam, call light in reach.
--- NOTE | 2021-10-02 13:35 | NUR ---
dr. mccrary stopped by said he's going to discarge pt to home.
[2021-10-02] MEDS ORDERED: BENMENLOZ PO (15:04)
[2021-10-02] MEDS ORDERED: GUAI600T33 PO (15:05)
[2021-10-02] MEDS ORDERED: PRED20 PO (15:06)
[2021-10-02] MEDS ORDERED: HYDHCL25 PO (15:18)
--- NOTE | 2021-10-02 15:45 | NUR ---
pt has been discharged to home, went over instructions with her, she verbalized understanding. new medications faxed to [facility] [address]. iv removed intact, has all her belongings. left via wheelchair with buyer in attendence, son here to pick her up.
== END 2021-10-02 15:52 | disposition home health service (06) | DRG 189 ==
LOC: ER 17:25 → MEDS 17:26 → ENPENDDIS 10-02 14:19 → MEDS 10-02 15:52
PROVIDERS: Family Medicine; Physician Assistant; Student in an Organized Health Care Education/Training Program; ADMIT Internal Medicine
PROC: 5A09357 Assistance with Respiratory Ventilation, Less than 24 Consecutive Hours, Continuous Positive Airway Pressure (ICD-10-PCS; principal; 2021-09-28)
DX: J96.21 Acute and chronic respiratory failure with hypoxia (principal); J44.1 Chronic obstructive pulmonary disease with (acute) exacerbation; Z20.822 Contact with and (suspected) exposure to COVID-19; E78.5 Hyperlipidemia, unspecified; K21.9 Gastro-esophageal reflux disease without esophagitis; E87.6 Hypokalemia; E83.42 Hypomagnesemia; D64.9 Anemia, unspecified; K44.9 Diaphragmatic hernia without obstruction or gangrene; J96.22 Acute and chronic respiratory failure with hypercapnia; Z96.652 Presence of left artificial knee joint; Z90.710 Acquired absence of both cervix and uterus; Z98.890 Other specified postprocedural states; Z87.891 Personal history of nicotine dependence; Z79.51 Long term (current) use of inhaled steroids; Z79.899 Other long term (current) drug therapy
CPT/HCPCS: 0241U; 36415; 71045; 71260; 80048; 80053; 82803; 83735; 83880; 84145; 84484; 85025; 85027; 85379; 93005; 93010; 94640; 94644; 94660; 94760; 94762; 96365; 96366; 96367; 96368; 97116; 97161; 99285-25; A9270; C9113; G0378; J0456; J1650; J2060; J2930; J3411; J3475; J3480; J7030; J7050; J7512; Q9967

== ENCOUNTER 2022-01-05 06:24 | Inpatient (IN) | payer OTHER ==
[~2022-01-05] VITALS: Ht 152.4 cm; Wt 77.6 kg
[~2022-01-05 06:24] MED LIST changes: +ATOR20; +BENMENLOZ PO; +BUDESONIDE-FO10.2 G2 INH; +CATAPRES0.1 MG PO; +FERSU300 PO; +HYDHCL25 PO; +NARCAN4 M1; +TIOT18 INH; +VITAMIN D32000 UNI1 PO; +Ventolin5 MG/1 ML INH
--- NOTE | 2022-01-05 08:38 | NUR ---
Ambulatory in Day Surgery History, Chart, Medications and Allergies reviewed before start of procedure.Patient confirms NPO status and agrees with scheduled surgery. Patient reports completing Chlorhexadine shower X2 prior to admission to hospital.Surgical site prepped with 2% Chlorhexidine cloth wipe. PATIENT WITH MULTIPLE IV STICKS BY MULTIPLE DIFFERENT NURSES. PATEINT WITH HX OF IV DRUG USE, REPORTS HISTORY OF VERY DIFFICULTY IV ACCESS.
--- NOTE | 2022-01-05 16:17 | NUR ---
1315 PT ARRIVED AT THE SURGICAL UNIT VIA GURNEY TRANSFERED TO BED. PT ALERT AND ORIENTED X4. REPORTS MINIMAL PAIN. 5 LAP ABD INCISION WITH WOUND GLUE, APPEARS DRY, CLEAN AND INTACT. ABLE TO TOLERATE MOVEMENT. BT HYPOACTIVE. PT DENIES N/V. VSS. DENIES CHEST PAIN, SOB AND DIZZINESS. ABLE TO VOID AT THE BSC WITH 1 SBA AND FWW. NPO FOR DINNER AND FULL LIQUID FOR BREAKFAST. SCD'S IN PLACED. REORIENT IN ROOM. LR FLUIDS INFUSING AT 75MLS/HR. CALL LIGHT WITHIN REACH. WILL CONTINUE TO MONITOR PT.
--- NOTE | 2022-01-05 16:55 | NUR ---
SHIFT SUMMARY NO ACUTE CHANGES SINCE PATIENT CAME IN TO THE SURGICAL FLOOR. PT AOX4. PODO ROBOTIC LAP GITA FUNDOPLICATION WITH DR. TOPETE. 5 ABD LAP SITES WITH WOUND GLUE, CDI. BT HYPOACTIVE. DENIES PASSING FLATUS. NPO AT THIS TIME DENIES N/V. VSS. DENIES CHEST PAIN AND SOB. TELE IN PLACE SINUS RHY AT 88. VOIDING IN BSC WITH SBA AND FWW. PT REPORTS SOME PAIN 07/04, ABD REGION. DILAUDID 0.5MG ADMINISTERED X1. PT REQUESTING FOR WATER AND FOOD (ANYTHING TO EAT), CONTACTED DR. TOPETE, WAITING FOR RESPONSE. SCD'S IN PLACED. CALL LIGHT WITHIN REACH. WILL CONTINUE TO MONITOR.
--- NOTE | 2022-01-05 19:15 | NUR ---
RECEIVED REPORT AND ASSUMED CARE OF PT. SHE IS LYING IN BED, A&OX4. VSS, NO COMPLAINTS AT THIS TIME. SHE REPORTS TOLERATING CLEARS WELL, IS EXPERIENCING SOME INTERMITTENT DRY COUGH. SHE DENIES ANY NEEDS AT THIS TIME. CASE.
--- NOTE | 2022-01-06 04:36 | NUR ---
SHIFT SUMMARY: TABBY IS A&OX4. VSS, NO ACUTE EVENTS OVERNIGHT, MAINTAINING OXYGEN SATURATIONS ON 2 LPM VIA NC. SHE IS A STANDBY ASSIST TO HELP WITH LINES/CORDS, IS TOLERATING CLEARS WELL, USES THE CALL LIGHT APPROPRIATELY, AND REPORTS ADEQUATE PAIN CONTROL WITH 0.5 MG OF DILAUDID. SHE IS URINATING WIHTOUT DIFFICULTY, LAP SITES C/D&I, NO N/V. SHE IS LYING IN BED WITH THE CALL LIGHT IN REACH. WILL REPORT TO DAY SHIFT RN.
[2022-01-06 06:12] LABS: Hematocrit 35.6 % (33.0-51.0); Hemoglobin 10.5 g/dL (11.5-16.0); Mean Corpuscular HGB 23.9 pg (26.0-34.0); Mean Corpuscular HGB Conc 29.5 g/dL (31.5-36.5); Mean Corpuscular Volume 81 fL (80-100); Mean Platelet Volume 10.4 fL (9.1-12.4); Platelet Count 254 K/mm3 (150-400); RDW Standard Deviation 64.6 fL (35.1-46.3); Red Blood Cell Count 4.39 M/mm3 (3.80-5.20); White Blood Cell Count 12.67 K/mm3 (4.00-11.30)
--- NOTE | 2022-01-06 08:24 | NUR ---
PT WITH C/O 8/10 ABD PAIN, MEDICATED WITH 0.5MG DILAUDID PER EMAR. REASSESSMENT APROX 30 MIN LATER PT SITTING UPRIGHT EATING BREAKFAST, NO FACIAL GRIMMACE OR APPEARENCE OF SEVERE PAIN. HOWEVER, PT STATES THAT PAIN MEDICATION "IS NOT HELPING AT ALL". PT STATES PER MD UNABLE TO SWALLOW PILLS X'S 2 WEEKS SO UNABLE TO TAKE NORCO. WILL DISCUSS WITH MD DURING AM ROUNDS.
--- NOTE | 2022-01-07 06:01 | NUR ---
SHIFT SUMMARY: TABBY IS A&OX4. VSS, NO ACUTE EVENTS OVERNIGHT. SHE IS INDEPENDENT TO THE BATHROOM, TOLERATING FULL LIQUIDS WELL, MAINTAINING SATS ORA, AND USES THE CALL LIGHT APPROPRIATELY. SHE DID STATE THAT HER PHARMACY IS CLOSED ON SUNDAYS, ENCOURAGED PT TO FILL HER PRESCRIPTION AT A DIFFERENT PHARMACY WHICH KEEPS SATURDAY HOURS. SHE REPORTS PASSING FLATUS AND BELCHING, NO BM YET. IV TO RIGHT SHOULDER PATENT. SHE IS LYING IN BED WITH THE CALL LIGHT IN REACH. WILL REPORT TO DAY SHIFT RN.
[2022-01-07] MEDS ORDERED: Norco 5-325 Ta1 EACH PO (12:40)
--- NOTE | 2022-01-07 13:21 | NUR ---
DISCHARGE POD 2 LAP GITA FUNDOPLICATION. PT TOLERATING FULL LIQUID DIET WELL. NO NAUSEA. SHE REPORTS PASSING GAS, NO BM. PAIN MANAGED PER EMAR. DISCHARGE INSTRUCTIONS GONE OVER WITH PATIENT, PRESCRIPTION SENT WITH PATIENT. DENIES FURTHER QUESTIONS. IV REMOVED PRIOR TO DISCHARGE. PT ABLE TO AMBULATE WELL, NO WEAKNESS. LAP SITES CDI WITH WOUND GLUE.
== END 2022-01-07 13:25 | disposition home or self-care (01) | DRG 328 ==
LOC: SURS 06:24 → PRE IP 07:30 → SURS 13:20
PROVIDERS: ADMIT Surgery
PROC: 0BQT4ZZ Repair Diaphragm, Percutaneous Endoscopic Approach (ICD-10-PCS; 2022-01-05)
PROC: 8E0W4CZ Robotic Assisted Procedure of Trunk Region, Percutaneous Endoscopic Approach (ICD-10-PCS; 2022-01-05)
PROC: 0DQ44ZZ Repair Esophagogastric Junction, Percutaneous Endoscopic Approach (ICD-10-PCS; principal; 2022-01-05 07:30)
DX: K21.9 Gastro-esophageal reflux disease without esophagitis (principal); K44.9 Diaphragmatic hernia without obstruction or gangrene; J44.9 Chronic obstructive pulmonary disease, unspecified; E78.5 Hyperlipidemia, unspecified; F41.9 Anxiety disorder, unspecified; E66.9 Obesity, unspecified; Z87.891 Personal history of nicotine dependence; Z68.34 Body mass index [BMI] 34.0-34.9, adult; Z96.652 Presence of left artificial knee joint; Z53.29 Procedure and treatment not carried out because of patient's decision for other reasons; Z90.710 Acquired absence of both cervix and uterus; Z79.899 Other long term (current) drug therapy
CPT/HCPCS: 36415; 85027; 86850; 86900; 86901; 94640; 94760; 94762; A9270; J0330; J0690; J1100; J1170; J1650; J1885; J2270; J2370; J2405; J2704; J3010; J7120

== ENCOUNTER 2022-02-17 13:55 | Emergency (ER) | payer OTHER ==
[~2022-02-17] VITALS: Ht 152.4 cm; Wt 72.6 kg
[2022-02-17 14:51] LABS: BASOPHILS ABSOLUTE AUTO 0.08 K/mm3 (0.00-0.23); BASOPHILS PERCENT AUTO 1 % (0-2); EOSINOPHILS ABSOLUTE AUTO 0.58 K/mm3 (0.00-0.68); EOSINOPHILS PERCENT AUTO 8 % (0-6); Hematocrit 41.8 % (33.0-51.0); Hemoglobin 12.9 g/dL (11.5-16.0); IMMATURE GRAN ABSOLUTE AUTO 0.01 K/mm3 (0.00-0.10); IMMATURE GRAN PERCENT AUTO 0 % (0-1); LYMPHOCYTES ABSOLUTE AUTO 1.95 K/mm3 (0.84-5.20); LYMPHOCYTES PERCENT AUTO 26 % (21-46); MONOCYTES ABSOLUTE AUTO 0.75 K/mm3 (0.16-1.47); MONOCYTES PERCENT AUTO 10 % (4-13); Mean Corpuscular HGB 25.4 pg (26.0-34.0); Mean Corpuscular HGB Conc 30.9 g/dL (31.5-36.5); Mean Corpuscular Volume 82 fL (80-100); Mean Platelet Volume 9.1 fL (9.1-12.4); NEUTROPHILS ABSOLUTE AUTO 4.15 K/mm3 (1.96-9.15); NEUTROPHILS PERCENT AUTO 55 % (41-73); Platelet Count 420 K/mm3 (150-400); RDW Coefficient Variation 18.1 % (11.7-14.2); RDW Standard Deviation 54.9 fL (35.1-46.3); Red Blood Cell Count 5.07 M/mm3 (3.80-5.20); White Blood Cell Count 7.52 K/mm3 (4.00-11.30)
[2022-02-17 15:09] LABS: Alanine Aminotransfer (ALT/SGP 21 U/L (12-78); Albumin, Blood 3.7 g/dL (3.4-5.0); Alk Phos 110 U/L (50-136); Anion Gap 6 mmol/L (6-16); Aspartate Aminotrans (AST/SGOT 15 U/L (12-37); Bilirubin, Total 0.3 mg/dL (0.1-1.0); Blood Urea Nitrogen 11 mg/dL (8-24); Bun/Creatinine Ratio 14.9 (12.0-20.0); CO2, Blood 26 mmol/L (21-32); Calcium, Blood 9.3 mg/dL (8.5-10.1); Chloride, Blood 108 mmol/L (98-108); Creatinine, Blood 0.74 mg/dL (0.40-1.00); Globulin, Blood 3.8 g/dL (2.2-4.0); Glomerular Filtration Rate >60 (60-); Glucose, Blood 119 mg/dL (70-99); Potassium, Blood 3.9 mmol/L (3.5-5.5); Sodium, Blood 140 mmol/L (136-145); Total Protein, Blood 7.5 g/dL (6.4-8.2)
[2022-02-17 15:38] LABS: Influenza A, PCR NEGATIVE (NEGATIVE); Influenza B, PCR NEGATIVE (NEGATIVE); Resp Syncytial Virus, PCR NEGATIVE (NEGATIVE); SARS-Cov-2 (COVID-19) PCR, MMC NEGATIVE (NEGATIVE)
[2022-02-17] MEDS ORDERED: AZIT500 PO (18:04)
[2022-02-17] MEDS ORDERED: Prednisone50 MG PO (18:04)
[2022-02-17] MEDS ORDERED: ALBU2.5V5 INH (18:04)
== END 2022-02-17 18:24 | disposition home or self-care (01) ==
LOC: ER 13:55
PROVIDERS: Physician Assistant
DX: J44.1 Chronic obstructive pulmonary disease with (acute) exacerbation (principal); K21.9 Gastro-esophageal reflux disease without esophagitis; E78.5 Hyperlipidemia, unspecified; Z20.822 Contact with and (suspected) exposure to COVID-19; Z79.899 Other long term (current) drug therapy; Z87.891 Personal history of nicotine dependence
CPT/HCPCS: 0241U; 36415; 71045; 71260; 80053; 83880; 84484; 85025; 85379; 93005; 93010; 94640; 94664; 96374; 99285-25; A9270; J2930; J7030; Q9967

== ENCOUNTER 2022-05-20 01:51 | Inpatient (IN) | payer OTHER ==
[~2022-05-20] VITALS: Ht 157.5 cm; Wt 76.2 kg
[~2022-05-20 01:51] MED LIST changes: +AZIT500 PO; +Prednisone50 MG PO
[2022-05-20 02:29] LABS: BASOPHILS ABSOLUTE AUTO 0.07 K/mm3 (0.00-0.23); BASOPHILS PERCENT AUTO 1 % (0-2); EOSINOPHILS ABSOLUTE AUTO 0.63 K/mm3 (0.00-0.68); EOSINOPHILS PERCENT AUTO 8 % (0-6); Hematocrit 39.4 % (33.0-51.0); Hemoglobin 12.7 g/dL (11.5-16.0); IMMATURE GRAN ABSOLUTE AUTO 0.01 K/mm3 (0.00-0.10); IMMATURE GRAN PERCENT AUTO 0 % (0-1); LYMPHOCYTES ABSOLUTE AUTO 1.39 K/mm3 (0.84-5.20); LYMPHOCYTES PERCENT AUTO 17 % (21-46); MONOCYTES PERCENT AUTO 12 % (4-13); Mean Corpuscular HGB 26.8 pg (26.0-34.0); Mean Corpuscular HGB Conc 32.2 g/dL (31.5-36.5); Mean Corpuscular Volume 83 fL (80-100); Mean Platelet Volume 9.4 fL (9.1-12.4); NEUTROPHILS ABSOLUTE AUTO 5.08 K/mm3 (1.96-9.15); NEUTROPHILS PERCENT AUTO 62 % (41-73); Platelet Count 347 K/mm3 (150-400); RDW Coefficient Variation 13.9 % (11.7-14.2); RDW Standard Deviation 42.5 fL (35.1-46.3); Red Blood Cell Count 4.73 M/mm3 (3.80-5.20); White Blood Cell Count 8.18 K/mm3 (4.00-11.30)
[2022-05-20 02:33] LABS: Base Excess Venous 0 mmol/L; Bicarbonate Venous 23.7 mmol/L (24.0-30.0); PCO2 Venous 49.7 mmHg (38-42); pH Blood Venous 7.33 (7.34-7.37)
[2022-05-20 02:45] LABS: Bun/Creatinine Ratio 23.2 (12.0-20.0); Calcium, Blood 9.2 mg/dL (8.5-10.1); Creatinine, Blood 0.69 mg/dL (0.40-1.00); Potassium, Blood 3.8 mmol/L (3.5-5.5)
[2022-05-20 03:42] LABS: Influenza A, PCR NEGATIVE (NEGATIVE); Influenza B, PCR NEGATIVE (NEGATIVE); Resp Syncytial Virus, PCR NEGATIVE (NEGATIVE); SARS-Cov-2 (COVID-19) PCR, MMC NEGATIVE (NEGATIVE)
[2022-05-20 10:48] LABS: Base Excess Venous 0.2 mmol/L; Bicarbonate Venous 24.9 mmol/L (24.0-30.0); PCO2 Venous 36.2 mmHg (38-42); pH Blood Venous 7.44 (7.34-7.37)
--- NOTE | 2022-05-20 11:57 | NUR ---
ASSUMPTION OF CARE RECEIVED REPORT FROM ANA DEY, PATIENT ARRIVED TO UNIT FROM ED AT 1020 VIA GURNEY. 4 PERSON TRANSFER TO BED. PATIENT ALERT, ANXOUS AND SOB. EXP WHEEZE HEARD, LUNGS TIGHT AND RESP RATE IN THE 30'S. AIRVO IN PLACE AT 50L AND 45% WITH SP02 ABOVE 95%. PATIENT WITH PRODUCTIVE COUGH, TRYING TO SPEAK BUT UNABLE TO UNDERSTAND SPEECH DUE TO DIFFICULTY BREATHING. VBG OBTAINED AND IMPROVED. IV TO RUE UNABLE TO FLUSH, POWERGLIDE PLACED TO LUE. PRECEDEX STARTED AND QUICKLY INCREASED TO 0.7MCG/KG FOR ANXIETY. WHEN ANXIOUS PATIENT TRIPODS, BEGINS PULLING OFF OXYGEN AND PULLING AGAINST IV AND THROWING EXTREMITIES AROUND. PATIENT WILL SHOUT "I'M FEELING ANXIOUS I'M ABOUT TO BOLT". VERBAL REASSURANCE PROVIDED EACH TIME. AFTER PRECEDEX WAS INCREASED PATIENT BEGAN RESTING CALMLY, REQUEST TO LISTEN CARTOONS TO HELP. ORDERS REVIEWED. WILL TREAT PRESCRIBED.
--- NOTE | 2022-05-20 18:10 | NUR ---
SHIFT SUMMARY NEURO: PATIENT WITH EXTREME ANXIETY. AWAKENS RANDOMLY, BEGINS PULLING AT LINE AND CHORDS, SCREAMING FOR HER PURSE AND TEETH. COUGHING AND WHEEZING INCREASE WITH ANXIETY EPISODES. PATIENT SOB, WILL WANT TO USE BATHROOM, THEN ASK FOR FOOD, THEN REACH FOR PHONE ALL IN A FRANTIC MANOR. VERBAL REASSURANCE PROVIDED, PATIENT WILL RECOVER AFTER SEVERAL MINUTES OF ANXIETY PERIOD. WILL REFUSE CARE WHEN AWAKE AND STATE SHE JUST WANTS TO GO HOME AND CONTINUES TO ASK HOW LONG SHE HAS BEEN HERE. ONCE BECOMES CALM PATIENT WILL REST WITH EYES CLOSED, VITALS WILL REMAIN STABLE. PRECEDEX TITRATING DOWN, CURRENTLY AT 0.3MCG/KG. RESP: LUNGS COARSE WITH EXP WHEEZES, BECOME TIGHT WITH MINIMAL AIR MOVEMENT DURING ANXIETY EPISODES. SP02 REMAINS STABLE. BREATHING TREATMENTS ADMINISTERED ORDERED. BREATH SOUNDS IMPROVE WHEN PATIENT IS RELAXED. PRODUCTIVE COUGH WHEN AWAKE, THIN CLEAR SPUTUM. CARDIAC: SINUS RHYTHM WITH RATE IN THE 80'S. STABLE B/P, HYPERTENSIVE WHEN FIRST ARRIVED TO UNIT BUT EXTREMELY ANXIOUS DURING THIS TIME. STABILIZED AFTER PATIENT BECAME CALM. GI: CURRENTLY NPO, REQUESTS TO EAT WHEN AWAKE BUT IS TOO SOB TO TOLERATE A SIP OF WATER. EDUCATION PROVIDED TO PATIENT REGARDING SAFETY OF SWALLOWING DURING RESPIRATORY DISTRESS AND RISK OF ASPIRATION. : INCONTINENT OF URINE, ATTENDS IN PLACE. FAMILY UPDATED REGARDING HOSPITALIZATION. WILL REPORT TO ONCOMING RN.
--- NOTE | 2022-05-20 20:30 | NUR ---
ASSUMED CARE OF PT AT 1900, SHE IS NOTED RESTING QUIETLY, RECLINING IN BED, NO VISIBLE INCREASED WORK OF BREATHING AT REST, SATS ARE NOTED MID 90S WITH OXYGEN VIA NASAL CANNULA AT HOME FLOW RATE OF 4 L/MIN, PRECEDEX GTT INFUSING AT 0.3 MCG/KG/HR 2029: PT ROUSES EASILY TO VERBAL STIMULI AND INITIALLY FOLLOWS DIRECTIONS WELL HOWEVER SHE STATES THAT SHE NEEDS TO VOID, BEDPAN IS OFFERED AND PT STATES THAT SHE WANTS TO GET UP TO TOILET "IT'S RIGHT THERE" DISCUSSED RESPIRATORY STATUS WITH PT AND SHE INITIALLY AGREES TO ATTEMPT BEDPAN USE, RESPIRATORY RATE IS NOTED TO INCREASE TO HIGH 30S WITH PT TURN FOR BEDPAN PLACEMENT, SATS ARE NOTED TO DECREASE TO LOW 80S PRIOR TO PT REMOVING BIOX PROBE, RESP RATE REMAINS HIGH 30S AND PT IS NOTED TO HAVE INCREASED WORK OF BREATHING, SHORT SENTENCE LENGTH OF 3-4 WORDS IS NOTED, TRIPODING NOTED, MARKED AUDIBLE INS/EXP WHEEZES ARE NOTED, RT CONTACTED FOR UDN, AND PT VERBALLY COACHED FOR BREATHING AND RELAXATION, SHE REMAINS MARKEDLY AGITATED, COMPLAINING THAT SHE WANTS FOOD AND WANTS TO GET UP OOB TO TOILET, DISCUSSED MARKED INCREASED WORK OF BREATHING WELL DESATURATION WITH PT, SHE BEGINS TO RELAX WITH ADMINISTRATION OF UDN, ON DISCUSSION AFTER PT RELAXES, PT VERBALIZES UNDERSTANDING OF PLAN OF CARE FOR THIS SHIFT, AGREEABLE TO PLAN FOR EVALUATION OF RESPIRATORY STATUS PRIOR TO GETTING UP OOB, DOES CONTINUE TO STATE THAT SHE DOESN'T BELIEVE THAT SHE WILL BE ABLE TO VOID IN BEDPAN. WILL MONITOR.
[2022-05-21 03:48] LABS: BASOPHILS ABSOLUTE AUTO 0.01 K/mm3 (0.00-0.23); BASOPHILS PERCENT AUTO 0 % (0-2); EOSINOPHILS PERCENT AUTO 0 % (0-6); Hematocrit 38.2 % (33.0-51.0); Hemoglobin 12.1 g/dL (11.5-16.0); IMMATURE GRAN ABSOLUTE AUTO 0.02 K/mm3 (0.00-0.10); IMMATURE GRAN PERCENT AUTO 0 % (0-1); LYMPHOCYTES ABSOLUTE AUTO 0.72 K/mm3 (0.84-5.20); LYMPHOCYTES PERCENT AUTO 7 % (21-46); MONOCYTES ABSOLUTE AUTO 0.37 K/mm3 (0.16-1.47); MONOCYTES PERCENT AUTO 4 % (4-13); Mean Corpuscular HGB 26.8 pg (26.0-34.0); Mean Corpuscular HGB Conc 31.7 g/dL (31.5-36.5); Mean Corpuscular Volume 85 fL (80-100); Mean Platelet Volume 9.7 fL (9.1-12.4); NEUTROPHILS PERCENT AUTO 89 % (41-73); Platelet Count 347 K/mm3 (150-400); RDW Coefficient Variation 14.5 % (11.7-14.2); RDW Standard Deviation 44.4 fL (35.1-46.3); Red Blood Cell Count 4.52 M/mm3 (3.80-5.20); White Blood Cell Count 10.12 K/mm3 (4.00-11.30)
[2022-05-21 04:09] LABS: Albumin, Blood 3.7 g/dL (3.4-5.0); Bilirubin, Total 0.5 mg/dL (0.1-1.0); Bun/Creatinine Ratio 34.8 (12.0-20.0); Calcium, Blood 9.1 mg/dL (8.5-10.1); Creatinine, Blood 0.66 mg/dL (0.40-1.00); Globulin, Blood 3.7 g/dL (2.2-4.0); Potassium, Blood 3.8 mmol/L (3.5-5.5); Total Protein, Blood 7.4 g/dL (6.4-8.2)
--- NOTE | 2022-05-21 05:47 | NUR ---
PT CONTINUES ON HOME OXYGEN FLOW RATE OF 4 L/MIN VIA NASAL CANNULA, SATS ARE MAINTAINING LOW 90S, SHE DOES DESAT TO MID TO UPPER 80S WITH INCREASES IN ACTIVITY THIS AM HOWEVER WORK OF BREATHING IS IMPROVED AND SHE WAS ABLE TO TOLERATE UP TO BSC THIS AM FOR VOID. FOLLOWING TRANSFER BACK TO BED, PT C/O INCREASED ANXIETY AND DYSPNEA, AND REQUESTED THIS RN "JUST TALK TO ME" AND REQUESTED COACHING IN RELAXATION BREATHING. THIS WAS DONE WITH SMALL AMOUNT OF IMPROVEMENT IN ANXIETY AND VISIBLE WORK OF BREATHING, SHE CONTINUED TO BE ANXIOUS AND PRECEDEX WAS TITRATED UP PER PT REQUEST. LUNG SOUNDS ARE IMPROVED WITH PT AT REST AND CALM, SHE IS NOTED TO CONTINUE TO HAVE AUDIBLE INS/EXP WHEEZE AFTER INCREASES IN ANXIETY ARE NOTED. HARSH COUGH CONTINUES, PT DENIES SPUTUM PRODUCTION THIS SHIFT, SHE STATES THAT SHE CAN FEEL IT IN HER CHEST BUT THAT IT "DOESN'T COME ALL THE WAY UP" PRESSURES MAINTAIN THROUGHOUT NOC, HEART RATE CONTINUES 80-90S.
--- NOTE | 2022-05-21 08:58 | NUR ---
ASSUMED CARE OF PT THIS AM PT. SLEEPING, AWAKENS TO VERBAL STIMULI. PT. ANSWERING QUESTIONS APPROPRIATELY, REPORTS SHE HAD LITTLE SLEEP LAST NOC AND WOULD LIKE TO REST. AUDIBLE WHEEZES NOTED WITH TALKING. REMAINS ON 4LNC. PRECEDEX GTT INFUSING AT 0.4MCG/KG/MIN. CALL LIGHT IN REACH, BED IN LOW POSITION. ALL NEEDS MET AT THIS TIME.
--- NOTE | 2022-05-21 10:19 | NUR ---
COUGHING PT. MORE AWAKE AT THIS TIME. ASKING FOR HELP TO CALL SON. PT. SITTING UP IN BED COUGHING VERY HARSH NON PRODUCTIVE COUGH WITH WHEEZING. ONLY ABLE TO SPEAK TWO TO THREE WORDS. BECOMES VERY ANXIOUS. CALL TO DR. DUNHAM FOR COUGH MEDICINE.
--- NOTE | 2022-05-21 12:26 | NUR ---
PT. MORE ALERT SHIFT PROGRESSES. COUGH MEDICINE PROVIDED, PT. ABLE TO ASSIST WITH TURNING FOR ATTENDS CHANGED WITH OUT DYSPNEA. PT. PROVIDED WITH JELLO, TOLERATED WELL. ICE WATER AT BEDSIDE. CALL LIGHT IN REACH, ALL NEEDS MET AT THIS TIME.
--- NOTE | 2022-05-21 17:06 | NUR ---
HIGH ANXIETY ROUNDED ON PT THIS PM TO GIVE MEDS. PT. AWAKENS FROM NAP. ANSWERS SOME QUESTIONS THEN BEGINS COUGHING. PT CONTINUES T/O SHIFT WITH HARSH NON PRODUCTIVE COUGH. ENCOURAGED PT TO NO TRY TALKING WHILE COUGHING SO HARD SPO2 DROPPED TO 85%, PT BEGAN TO BECOME FRANTIC IN BED, PULLING AT LINES SATING "IM GETTTING OUT OF BED", SCHEDULE CHECKER AND RN AT BEDSIDE TRYING TO REASSURE PT AND EDUCATING ON RISKS FOR FALL WITH GETTING OOB. PT BECOMING MORE AGGIATED, YELLING AT STAFF "IM GETTING OUT OF THIS BED", PULLING AT LINES, PT. CLIMBED OOB OVER SIDE RAILING. PT. SPO2 DROPPING TO 54%, PT HAS TIGHT AUDIBLE WHEEZES. ENCOURAGED PT TO SIT ON EDGE OF THE BED FOR SAFETY. PT. CONTINUES WITH AGGITATION AND ANXIETY. O2 INCREASED TO 10L, PT REMOVED OXYGEN STATING "ITS TOO MUCH", O2 DECREASED AND PT ENCOURAGED TO PUT O2 IN MOUTH FOR RECOVERY. RT CALLED AND BREATHING TX STARTED. PT. HANDED BREATHING TX AND PLACED ON FACE, PT. STATES "GET THIS OFF ME ITS TOO TIGHT", PT WAS HOLDING BREATHING TX TO FACE AND REMINDED OF THIS. PT DEMANDS TO USE BEDSIDE COMMODE STATING "IM ALREADY UP" REMINDED AGAIN THAT HER OXYGEN IS IN THE 70S AND WE ARE ATTEMPTING TO RECOVER HER. PT BEGAN TO STAND AGAINST ADVICE AND SAFETY WARNINGS TO GET TO BEDSIDE COMMODE. PT. REMAINS ON PRECEDEX GTT T/O THIS INCREASED TO 0.7MCG/KG/MIN. PT. AGREEABLE AFTER CONSANT VERBAL ENCOURAGEMENT TO RETURN TO BED. SPO2 DECREASED TO LOW 80S, SLOWLY RETURNING TO LOW 90S, O2 DECREASED TO 5L AT THIS TIME. PT BED ALARM ON, BED IN LOW POSITION. CALL LIGHT IN REACH PT. NOW MORE CALM. STATING "IM REALLY TIRED, CANT YOU GIVE ME SOMETHING FOR THIS SHAKING", PT REMINDED SHE HAS MEDICATION INFUSING. NO FURTHER ASSISTANCE REQUIRED AT THIS TIME.
--- NOTE | 2022-05-21 17:37 | NUR ---
PT SPO2 CONTINUES TO DROP, PT TALKING ON PHONE. ASKED MULTIPLE TIMES BY THIS RN TO WAIT TO MAKE PHONE CALLS UNTIL HER OXYGEN HAS IMPROVED.
--- NOTE | 2022-05-21 17:47 | NUR ---
SHIFT SUMMARY PT REMAINS ON PRECEDEX GTT, TITRATED T/O DAY. PT IS VERY HIGH ANXIETY, AND THIS INCREASES WITH COUGHING. PT LS TIGHT WITH WHEEZES, BREATHING TX T/O DAY. PT. MORE ALERT T/O SHIFT. ABLE TO TAKE PO MEDS THIS PM. BED ALARM ON, AND IN LOW POSITION WITH CALL LIGHT IN REACH. ALL NEEDS MET AT THIS TIME. REPORT TO ONCOMING RN .
--- NOTE | 2022-05-21 19:36 | NUR ---
ASSUMED CARE OF PT, SHE IS RESTING QUIETLY AT THIS TIME, RECLINING IN BED ON HER RIGHT SIDE WITH HOB RAISED, SATS ARE NOTED MAINTAINING LOW 90S WITH OXYGEN VIA NASAL CANNULA AT 5 L/MIN, RESP RATE IS IN THE MID TO UPPER TEENS THROUGHOUT ASSESSMENT. SENTENCE LENGTH IS FULL WITHOUT VISIBLE INCREASED WORK OF BREATHING AT REST AND PT IS NOTED TO MAINTAIN SATS WITH SHORT CONVERSATION DURING ASSESSMENT. LUNGS ARE COARSE THROUGHOUT WITH DIMINISHED BASES, MARKEDLY IMPROVED AIR MOVEMENT FROM LAST NOC. PT DOES STATE THAT HER BREATHING FEELS IMPROVED FROM YESTERDAY HOWEVER ADMITS THAT IT IS NOT YET BACK TO HER BASELINE. SHE DENIES SPUTUM PRODUCTION WITH COUGH. SHE IS ABLE TO VERBALIZE UNDERSTANDING OF ACTIVITY RESTRICTIONS RELATED TO HER RESPIRATORY STATUS AND SAFETY AT THIS TIME, WILL CONTINUE TO REINFORCE. PLAN OF CARE FOR THIS SHIFT IS DISCUSSED WITH PT AND AT THIS TIME SHE IS AGREEABLE. PLAN FOR PO ANXIOLYTIC WITH HS LIPITOR, WILL EVALUATE FOR ABILITY TO USE BSC VS BEDPAN PRN THIS SHIFT, PLAN TO MAXIMIZE PT SLEEP, WILL ATTEMPT TO TITRATE PRECEDEX TOLERATED. HRR, SINUS ON MONITOR, RATE 80S, PRESSURES MAINTAINING, PULSES FULL, NO EDEMA NOTED, SKIN IS PWD AT REST WITH BRISK CAP REFILL. ACTIVE BOWEL TONES NOTED, NO TENDERNESS WITH LIGHT PALPATION, PT DENIES NAUSEA. ATTENDS IN PLACE, PT DENIES NEED FOR ATTENDS CHANGE AT THIS TIME. PRECEDEX INFUSING AT 0.7 MCG/KG/HR AT THIS TIME.
[2022-05-22 05:08] LABS: Hematocrit 37.7 % (33.0-51.0); Hemoglobin 11.9 g/dL (11.5-16.0); Mean Corpuscular HGB 26.9 pg (26.0-34.0); Mean Corpuscular HGB Conc 31.6 g/dL (31.5-36.5); Mean Corpuscular Volume 85 fL (80-100); Mean Platelet Volume 9.9 fL (9.1-12.4); Platelet Count 362 K/mm3 (150-400); RDW Coefficient Variation 14.7 % (11.7-14.2); RDW Standard Deviation 45.4 fL (35.1-46.3); Red Blood Cell Count 4.42 M/mm3 (3.80-5.20); White Blood Cell Count 16.47 K/mm3 (4.00-11.30)
[2022-05-22 05:31] LABS: Bun/Creatinine Ratio 49.8 (12.0-20.0); Calcium, Blood 8.9 mg/dL (8.5-10.1); Creatinine, Blood 0.62 mg/dL (0.40-1.00); Potassium, Blood 4.3 mmol/L (3.5-5.5)
--- NOTE | 2022-05-22 05:56 | NUR ---
PT RESTS QUIETLY THROUGHOUT NOC, REMAINS RESPONSIVE TO VERBAL STIMULI, HAS TOLERATED UP TO BSC WITH VERBAL COACHING FOR INCREASED ANXIETY, PT HAS BEEN NOTED TO REQUEST ASSISTANCE SUCH "HOLD MY HANDS PLEASE" AND REPORTS FEELINGS OF INCREASING ANXIETY/PANIC. ATARAX WAS ADMIN WITH HS MEDS AND PRECEDEX HAS BEEN TITRATED DOWN TO 0.5 MCG/KG/HR OF THIS TIME, WILL ATTEMPT TO TITRATE FURTHER PT TOLERATES.
--- NOTE | 2022-05-22 08:36 | NUR ---
ASSUMED CARE PT IS ANXIOUS THIS AM, SHE HAD JUST GOTTEN BACK TO BED FROM THE BSC, SPO2 DROPPED TO 80%, O2 VIA NC @ 6 L, PRECEDEX INCREASED TO 0.5 MCG/KG/HR, DEEP BREATHING ENC, PT SLOWLY RECOVERED TO 88% AFTER APPROX 10 MINUTES, LUNGS COARSE W/WHEEZES, DIMINISHED IN BASES. HOSPITALIST AT THE BEDSIDE FOR ASSESSMENT, PO ATARAX GIVEN. PLAN TO INCREASE ATARAX 25 MG BID TO TID PRN, WEAN OFF PRECIDEX GTT. PT IS RESTING QUIETLY AT THIS TIME, RESP 14, SPO2 92%.
--- NOTE | 2022-05-22 13:38 | NUR ---
HOSPITALIST NOTIFIED PT WAS USING THE BEDPAN WHEN SHE STARTED TO HAVE A PANIC ATTACK, PT BEGAN TO TAKE OFF HER O2 AND STATED SHE COULD NOT BREATH, O2 DROPPED TO 80% WHILE SCREAMING AROUND, CLOSED CIRCUIT SCREEN WATCHER STEPPED IN THE ROOM TO ASSIST, NOTIFIED BY JOSUE DEY, 1 MG IV ATIVAN WAS ORDERED AND GIVEN, PRECIDEX INCREASED BY CLOSED CIRCUIT SCREEN WATCHER TO 0.6 MCG/KG/HR, RT IN THE ROOM, PT AGREED TO WEAR THE BIPAP MASK AFTER SEVERAL MINUTES, SETTINGS OF 12/6 & 90% FIO2. SPO2 CAME UP TO 97% WHILE THE PT REMAINED CALM. RT JUST DECREASED FIO2 TO 80%, SPO2 IS CURRENTLY 98%, RESP 22, PT IS CALM AND ATTEMPTING TO SLEEP, CALL LIGHT IN REACH, [facility]
--- NOTE | 2022-05-22 17:26 | NUR ---
AIRVO DECREASED TO 60% FIO2 PER RT.
--- NOTE | 2022-05-22 17:34 | NUR ---
SUMMARY PT IS RESTING COMFORTABLY AT THIS TIME, AIRVO IN PLACE @ 50 L, FIO2 50%, SPO2 97%, LUNGS REMAIN COARSE W/WHEEZES BILATERAL, DIM IN BASES. PT WAS ABLE TO WEAR THE BIPAP MASK FOR APPROX 1.5 HOURS AFTER HER PANIC EPISODE THIS AM, SHE THEN REQUESTED IT OFF DUE TO "CLAUSTROPHOBIA", AIRVO WAS PLACED. PT REMAIN ON THE PRECIDEX GTT AT THIS TIME, 0.5 MCG/KG/HR. PT DID EAT HER LUNCH BUT DINNER HAS BEEN HELD DUE TO DECLINE IN RESP STATUS. PT IS NOT TOLERATING ACTIVITY WITHOUT DROP IN SPO2, PT ENC TO USE BEDPAN. NO OTHER ACUTE CHANGES NOTED. WCT, & REPORT TO IKER RN.
--- NOTE | 2022-05-22 19:22 | NUR ---
ASSUMED PT CARE AT 1915 PT SLEEPING AT THIS TIME. AIRVO AT 50L AND 50% WITH SPO2 91% AND RR 14. PT APPEARS COMFORTABLE AT THIS TIME. NSR WITH HR 78. VSS STABLE, SEE FLOWSHEET. PRECEDEX AT 0.5 MCG/KG/HR. PER REPORT PT HAS BEEN VERY ANXIOUS TODAY WITH A HARD TIME RECOVERING OXYGEN SATURATIONS AFTER ANXIETY EPISODES. ATARAX ORDERED PRN; WILL CONTINUE TO REASSESS. PT APPEARS COMFORTABLE AT THIS TIME. SEE SHIFT ASSESSMENT FOR FURTHER DETAILS.
--- NOTE | 2022-05-22 23:22 | NUR ---
REASSESSMENT DURING HS MED ADMINISTRATION PT WOKE UP COUGHING IN WHICH SHE BECAME VERY SOB AND VERY ANXIOUS. PRECEDEX WAS AT 0.5MCG/KG/HR AT THIS TIME. PT PULLING OFF HIFLOW OXYGEN SAYING SHE COULDN'T BREATHE. PT WAS GIVEN 5MG OF VALIUM PER ORDERS, WELL PRECEDEX GTT INCREASED TO 0.7MCG/KG/HR. PT CONTINUED COUGHING WITH VERY LITTLE RESERVES. OXYGEN SATURATIONS WOULD DROP TO LOW 80'S AND PT REQUIRED FREQUENT 100% OXYGENATION ON AIRVO AT 50L. SPOKE WITH DR. BAL REGARDING CHANGING PT'S TESSALON PERLES TO SCHEDULED AND OBTAINED NEW ORDERS FOR MUCINEX R/T COUGH AND PT'S COPIOUS AMOUNTS OF THICK WHITE SPUTUM. PT ALSO GIVEN 50MG OF ATARAX PRIOR TO HER GOING TO SLEEP FOR A GOAL TO TITRATE OFF PRECEDEX GTT.
--- NOTE | 2022-05-23 05:27 | NUR ---
END OF SHIFT SUMMARY PT CONTINUES WITH PRECEDEX AT 0.6MCG/KG/HR DESPITE ADMINISTRATIONS OF ADARAX AND VALIUM. PT CONTINUED TO WAKE UP OUT OF A DEEP SLEEP WITH PANIC ATTACKS SAYING SHE COULDN'T BREATHE AND THEN WOULD GO INTO AN EXTENDED COUGHING EPISODE. PT ATTEMPTS TO SELF TALK, BUT PREFERS STAFF AT BEDSIDE TO HOLD HER HAND AND SOOTHE TALK HER WELL. AIRVO REMAINS AT 50L AND 50% FIO2. RESP RATE 14-20'S WHEN AT REST AND UP INTO THE 30'S WHEN PT IS ANXIOUS. CONTINUES PRODUCING COPIOUS AMOUNTS OF THICK, WHITE SPUTUM. BECOMES VERY SOB WITH MINIMAL EXERTION AND CAN ONLY SPEAK 2-3 WORD SENTENCES. MINIMAL PO INTAKE THIS SHIFT. NO VOID WELL. PT REQUESTED THAT SHE NOT BE WOKEN UP ONCE SHE WAS ASLEEP. SHE IS ABLE TO REPOSITION HERSELF. CALL LIGHT WITHIN REACH. WILL CONTINUE TO MONITOR UNTIL REPORT IS HANDED OFF TO ONCOMING RN.
--- NOTE | 2022-05-23 07:15 | NUR ---
Assumed care of pt at 0700 from Flex DEY. Pt A&O x 4. Answers questions. Follows commands. Verbalizes needs. Anxious. Precedex at 0.5 mcg/kg/hr for management of anxiety. AirVO with 45 LPM and 45% FiO2. SR per monitor. BP stable.
--- NOTE | 2022-05-23 16:22 | NUR ---
Pt is sitting up in bed and alert. Pt is crying and complaining of pain (RN already informed and working on it). Pt immediately tells me about all her family unit complications, the of many friends and family but gets very emotional when talking about the of her sister. Pt talks about guilt, addiction, unresolved grief, and the absolute panic she feels when she can't breathe. I normalize her feelings, explore spiritual beliefs, talk about mindfulness practices, and provide therapeutic listening, anxiety containment, grief support, gentle litigation counsel and prayer. Pt responds well and calm and shows signs of increased peace. Spiritual care will remain available.
--- NOTE | 2022-05-23 17:41 | NUR ---
SUMMARY Neuro: A&O x 4. Answers questions. Follows commands. Verbalizes needs. Pleasant and cooperative with care. Musculoskeletal: Moves all extremities with equal strength and range of motion Respiratory: AirVO with 45 LPM and 50% FiO2. Lungs coarse and wheezy t/o. Productive cough with thick, white sputum Cardiac: ST per monitor, rate 105. BP stable. GI: No BM this shift : Voids into bedpan Skin: Unchanged from initial assessment Psychosocial: precedex 0.2 mcg/kg/hr for management of anxiety. Added clonazepam today.
--- NOTE | 2022-05-23 20:33 | NUR ---
ASSUMED PT CARE AT 1900 PT SITTING UP IN BED TALKING WITH STAFF. ALERT AND ORIENTED AND ABLE TO MAKE HER NEEDS KNOWN. PT VERBALIZES THAT SHE BECOMES ANXIOUS QUICKLY AND IS STARTING TO FEEL ANXIOUS NOW. LOOKED OVER EMAR AND MEDICATED WITH SCHEDULED DOSE OF CLONAZEPAM. PRECEDEX AT 0.2MCG/KG/HR WITH GOAL TO TITRATE OFF AND MANAGE WITH ORAL MEDICATIONS. PT HAS FLUTTER VALVE AT BEDSIDE. AIRVO CURRENTLY AT 45L AND 50%. SPO2 95% WITH RR 18. ATTENDS IN PLACE. PT NOTED TO HAVE STRESS INCONTINENCE AND STATES SHE CAN LET ME KNOW WHEN SHE NEEDS CHANGED; HOWEVER, REQUESTS THAT I CHECK HER EVERY TWO HOURS WHEN ASLEEP. PT APPEARS COMFORTABLE AND IN NO DISTRESS AT THIS TIME. TALKING IN FULL SENTENCES TO FAMILY ON THE PHONE. SEE SHIFT ASSESSMENT FOR FURTHER DETAILS.
[2022-05-24 04:09] LABS: Bun/Creatinine Ratio 49.7 (12.0-20.0); Calcium, Blood 8.3 mg/dL (8.5-10.1); Creatinine, Blood 0.66 mg/dL (0.40-1.00); Potassium, Blood 4.8 mmol/L (3.5-5.5)
--- NOTE | 2022-05-24 04:28 | NUR ---
END OF SHIFT SUMMARY PT RESTING MOST OF NIGHT WITH NO ISSUES. AROUND 0400 PT WOKE UP FEELING ANXIOUS D/T COUGHING EPISODES WITH COPIOUS AMOUNTS OF THICK WHITE/YELLOW SPUTUM BEING SUCTIONED VIA YANKAUER. PRECEDEX GTT HAS BEEN OFF SINCE ABOUT 2200. PT REQUESTED HER HOME DOSE OF HALDOL, WHICH IS 2MG EVERY FOUR HOURS NEEDED. CALL MADE TO DR. BAL WITH ORDERS TO REINSTATE HOME DOSE. PT HAS REMAINED ON AIRVO AT 45L; 50% FIO2. SPO2 90-96%. PT HAS BEEN ALERT AND ORIENTED AND ABLE TO MAKE HER NEEDS KNOWN. VOIDING ON BEDPAN WITH STRESS INCONTINENCE NOTED WITH COUGHING EPISODES. PT DID STAND AT BEDSIDE ONCE THIS SHIFT D/T FEELING LIKE SHE COULDN'T BREATHE IN BED, THIS DID APPEAR TO HELP EASE PT'S ANXIETY. SHE IS ABLE TO REPOSITION INDEPENDENTLY IN BED. WILL CONTINUE TO MONITOR UNTIL REPORT IS HANDED OFF TO ONCOMING RN.
[2022-05-24 08:45] LABS: BASOPHILS ABSOLUTE AUTO 0.02 K/mm3 (0.00-0.23); BASOPHILS PERCENT AUTO 0 % (0-2); EOSINOPHILS PERCENT AUTO 0 % (0-6); Hematocrit 39.4 % (33.0-51.0); Hemoglobin 12.6 g/dL (11.5-16.0); IMMATURE GRAN ABSOLUTE AUTO 0.23 K/mm3 (0.00-0.10); IMMATURE GRAN PERCENT AUTO 1 % (0-1); LYMPHOCYTES ABSOLUTE AUTO 1.42 K/mm3 (0.84-5.20); LYMPHOCYTES PERCENT AUTO 8 % (21-46); MONOCYTES ABSOLUTE AUTO 0.36 K/mm3 (0.16-1.47); MONOCYTES PERCENT AUTO 2 % (4-13); Mean Corpuscular HGB 27.1 pg (26.0-34.0); Mean Corpuscular Volume 85 fL (80-100); Mean Platelet Volume 9.8 fL (9.1-12.4); NEUTROPHILS PERCENT AUTO 88 % (41-73); Platelet Count 411 K/mm3 (150-400); RDW Coefficient Variation 14.8 % (11.7-14.2); Red Blood Cell Count 4.65 M/mm3 (3.80-5.20); White Blood Cell Count 16.93 K/mm3 (4.00-11.30)
--- NOTE | 2022-05-24 09:36 | NUR ---
Assumed care of pt at 0700. Report received from Flex DEY. Pt A&O x 4. Answers questions. Follows commands. Verbalizes needs. Pleasant and cooperative with care. Initially on airvo at start of shift but has been transitioned to NC with 4 LPM by respiratory care. Pt has productive cough and self-suctions with yankaure. Pt states she wants to rest but is willing to get up into a chair later this morning. Dr Bolivar and Dr Joel in to see pt this AM.
--- NOTE | 2022-05-24 13:30 | NUR ---
Spiritual Care Visit. Pt. is awake in bed and welcomes my visit. Pt. is quickly unsettled by the weight of loss in her life. Listen theraputicly with a calming presence. Pt. displays evidence of catharsis. Pastoral care is given and rapport is developed. Pt. displayed evidence of reduced guilt and anxiety regarding her sister's passing. Prayed with Pt. and Pt. grabbed my hand. Pt. verbalized gratitude for the spiritual care visit.
--- NOTE | 2022-05-24 15:23 | NUR ---
Pt transferred to room 359. Report given to Freda DEY. Pt transferred on 4 LPM NC. Medical floor status with telemetry. ST with HR 103 on transfer. Pt worked with PT and OT today; pt tolerated both activities well and mobilizes with one person assist, gait belt and walker. Pt had one BM today; excellent appetite. Chart, medications, and belonging transferred with patient.
--- NOTE | 2022-05-24 17:34 | NUR ---
SHIFT SUMMARY PATIENT TRANSFERRED FROM ICU. PATIENT A&OX4. 1PA TO BSC. PATIENT SOB AND TACHY ON EXERTION. ON 3L VIA NC. PRODUCTIVE COUGH PRESENT WITH YANKER SUCTION AVAIL. HEART RATE TACHY. OTHER VSS. WILL CONTINUE TO MONITOR.
--- NOTE | 2022-05-25 05:12 | NUR ---
PT C/O THAT SHE HAS NOT BEEN TODD TO SLEEP SINCE SHE WAS STARTED ON THE STEROID IV. SHE IS FEELING ANXIOUS ABOUT GOING ANOTHER NIGHT W/O SLEEP AND REQUESTING SOMETHING TO HELP HER SLEEP. PT STATES THAT HER OUT PATIENT DOCTOR HAD PLANNED ON INCREASING HER HALDOL TO 5 MG FROM 2 MG AND REQUESTING IF THIS CAN BE DONE INSTEAD OF ADDING ADITIONAL PILL. AWARE WITH ORDER TO INCREASE PT HALDOL. PT MEDICATED PER JAN AND TODD TO SLEEP T/O THE NIGHT WITH NO NEW COMPLAINS. PT REMAINED ON 4L NC WITH SATURATIONS MID 90s.
[2022-05-25 05:48] LABS: Bun/Creatinine Ratio 46.3 (12.0-20.0); Calcium, Blood 7.9 mg/dL (8.5-10.1); Creatinine, Blood 0.54 mg/dL (0.40-1.00); Potassium, Blood 3.9 mmol/L (3.5-5.5)
--- NOTE | 2022-05-25 09:41 | NUR ---
PATIENT STILL SLEEPING REFUSING MEDS AND BREAKFAST.
--- NOTE | 2022-05-25 19:31 | NUR ---
SHIFT SUMMARY A&OX4. ANXIETY ATTACKS AT TIMES. PATIENT RECEIVED HALDOL LAST NIGHT AND SLEPT UNTIL LUNCH TIME. PATIENT GETS UP TO BSC INDEPEDENTLY. USES CALL LIGHT APPROPRIATELY. ON 4-5L O2 VIA NC. HAS A PRODUCTIVE COUGH WITH SUCTION AVAIL AT BEDSIDE. PATIENT HAD ONE ANXIETY ATTACK THIS EVENING, ANXIETY MEDICATIONS GIVEN AND PATIENT ABLE TO CALM DOWN WITH REASSURANCE. WILL CONTINUE TO MONITOR.
--- NOTE | 2022-05-26 05:14 | NUR ---
A&OX4, EXTREMELY ANXIOUS. DOESN'T WANT TO BE ALONE IF SHE IS SHORT OF BREATH. MILD COMPLAINT OF BASELINE CHRONIC PAIN IN LOW BACK AND LEGS. COCTAIL OF PO HALDOL AND IBUPROPHEN IN ADDITION TO SCHEDULED kLONIPIM. MUCH BETTER BY MORNING AFTER A GOOD SLEEP
[2022-05-26 05:20] LABS: BASOPHILS ABSOLUTE AUTO 0.05 K/mm3 (0.00-0.23); BASOPHILS PERCENT AUTO 0 % (0-2); EOSINOPHILS ABSOLUTE AUTO 0.01 K/mm3 (0.00-0.68); EOSINOPHILS PERCENT AUTO 0 % (0-6); Hematocrit 38.4 % (33.0-51.0); Hemoglobin 12.1 g/dL (11.5-16.0); IMMATURE GRAN ABSOLUTE AUTO 0.52 K/mm3 (0.00-0.10); IMMATURE GRAN PERCENT AUTO 3 % (0-1); LYMPHOCYTES ABSOLUTE AUTO 3.22 K/mm3 (0.84-5.20); LYMPHOCYTES PERCENT AUTO 20 % (21-46); MONOCYTES ABSOLUTE AUTO 1.46 K/mm3 (0.16-1.47); MONOCYTES PERCENT AUTO 9 % (4-13); Mean Corpuscular HGB 27.2 pg (26.0-34.0); Mean Corpuscular HGB Conc 31.5 g/dL (31.5-36.5); Mean Corpuscular Volume 86 fL (80-100); Mean Platelet Volume 9.9 fL (9.1-12.4); NEUTROPHILS ABSOLUTE AUTO 10.64 K/mm3 (1.96-9.15); NEUTROPHILS PERCENT AUTO 67 % (41-73); NRBC ABSOLUTE 0.02 K/mm3 (0.00-0.02); NRBC Auto 0.1 /100 WBC (0.0-0.2); Platelet Count 425 K/mm3 (150-400); RDW Coefficient Variation 14.6 % (11.7-14.2); RDW Standard Deviation 46.3 fL (35.1-46.3); Red Blood Cell Count 4.45 M/mm3 (3.80-5.20)
[2022-05-26 05:58] LABS: Albumin, Blood 2.8 g/dL (3.4-5.0); Bilirubin, Total 0.3 mg/dL (0.1-1.0); Bun/Creatinine Ratio 40.8 (12.0-20.0); Calcium, Blood 8.5 mg/dL (8.5-10.1); Creatinine, Blood 0.59 mg/dL (0.40-1.00); Globulin, Blood 2.8 g/dL (2.2-4.0); Potassium, Blood 3.5 mmol/L (3.5-5.5); Total Protein, Blood 5.6 g/dL (6.4-8.2)
--- NOTE | 2022-05-26 18:56 | NUR ---
SHIFT SUMMARY; PATIENT HAD MOSTLY UNVENTFUL DAY. SHE WAS UP TO THE SHOWER WITH MINIMAL ASSIST. SHE EXPRESSED ANXIETY THIS AM AND WAS MEDICATED WITH HER KLONOPIN WITH MUCH SUCCESS. SHE IS AO X 4 TODAY AND USES CALL LIGHT APPROPRIATELY. THIS RADHA SHE COMPLAINS OF INCREASED ANXIETY AND AGITATION MEDICATED WITH HALDOL AND IBUPROFEN PRIOR TO SHIFT CHANGE PER PATIENT REQUEST. PATIENT REMAINSD ON 4 LITERS VIA NASAL CANNULA WITH HUMIDIFIED O2. PATIENT AO X 4 THROUGHOUT THE DAY. IV POWERGLIDE FLUSHES BUT DOES NOT DRAW. ]
[2022-05-27 05:56] LABS: BASOPHILS ABSOLUTE AUTO 0.03 K/mm3 (0.00-0.23); BASOPHILS PERCENT AUTO 0 % (0-2); EOSINOPHILS ABSOLUTE AUTO 0.01 K/mm3 (0.00-0.68); EOSINOPHILS PERCENT AUTO 0 % (0-6); Hematocrit 38.9 % (33.0-51.0); IMMATURE GRAN ABSOLUTE AUTO 0.38 K/mm3 (0.00-0.10); IMMATURE GRAN PERCENT AUTO 3 % (0-1); LYMPHOCYTES ABSOLUTE AUTO 1.64 K/mm3 (0.84-5.20); LYMPHOCYTES PERCENT AUTO 12 % (21-46); MONOCYTES ABSOLUTE AUTO 1.25 K/mm3 (0.16-1.47); MONOCYTES PERCENT AUTO 9 % (4-13); Mean Corpuscular HGB 26.8 pg (26.0-34.0); Mean Corpuscular HGB Conc 30.8 g/dL (31.5-36.5); Mean Corpuscular Volume 87 fL (80-100); Mean Platelet Volume 10.3 fL (9.1-12.4); NEUTROPHILS ABSOLUTE AUTO 10.29 K/mm3 (1.96-9.15); NEUTROPHILS PERCENT AUTO 76 % (41-73); Platelet Count 387 K/mm3 (150-400); RDW Coefficient Variation 14.6 % (11.7-14.2); RDW Standard Deviation 46.2 fL (35.1-46.3); Red Blood Cell Count 4.48 M/mm3 (3.80-5.20)
--- NOTE | 2022-05-27 06:03 | NUR ---
NO CHANGES OVERNIGHT. PATIENT SLEPT WELL AND HAD NO COMPLAINTS OF PAIN. HR STILL SR/ST DEPENDING ON HER ACTIVITY LEVEL. ANY OOB EXERTION IN ROOM (COMMODE OR CHAIR) ELEVATES HER HR INTO THE 110'S 120'S,
[2022-05-27 06:24] LABS: Albumin, Blood 2.6 g/dL (3.4-5.0); Albumin/Globulin Ratio 0.9 (0.8-1.8); Bilirubin, Total 0.2 mg/dL (0.1-1.0); Calcium, Blood 8.2 mg/dL (8.5-10.1); Creatinine, Blood 0.54 mg/dL (0.40-1.00); Globulin, Blood 2.8 g/dL (2.2-4.0); Potassium, Blood 3.9 mmol/L (3.5-5.5); Total Protein, Blood 5.4 g/dL (6.4-8.2)
[2022-05-27] MEDS ORDERED: Tessalon200 MG PO (12:04)
[2022-05-27] MEDS ORDERED: PRED20 PO (12:04)
== END 2022-05-27 13:58 | disposition home or self-care (01) | DRG 189 ==
LOC: ER 01:51 → PCU 04:54 → ER 04:54 → ERHOLD 04:54 → ICUW 05:43 → PCU 05:43 → ICUE 09:21 → MEDS 05-24 15:26
PROVIDERS: Family Medicine; Student in an Organized Health Care Education/Training Program; ADMIT Internal Medicine
PROC: 5A0945A Assistance with Respiratory Ventilation, 24-96 Consecutive Hours, High Flow/Velocity Cannula (ICD-10-PCS; principal; 2022-05-23)
DX: J96.21 Acute and chronic respiratory failure with hypoxia (principal); J44.1 Chronic obstructive pulmonary disease with (acute) exacerbation; E87.2 Acidosis; Z20.822 Contact with and (suspected) exposure to COVID-19; D72.829 Elevated white blood cell count, unspecified; J96.22 Acute and chronic respiratory failure with hypercapnia; F41.9 Anxiety disorder, unspecified; E78.5 Hyperlipidemia, unspecified; E66.9 Obesity, unspecified; Z68.29 Body mass index [BMI] 29.0-29.9, adult; F15.90 Other stimulant use, unspecified, uncomplicated; R45.1 Restlessness and agitation; K44.9 Diaphragmatic hernia without obstruction or gangrene; K21.9 Gastro-esophageal reflux disease without esophagitis; Z96.652 Presence of left artificial knee joint; Z79.51 Long term (current) use of inhaled steroids; Z79.899 Other long term (current) drug therapy; Z98.890 Other specified postprocedural states; Z90.710 Acquired absence of both cervix and uterus; Z87.891 Personal history of nicotine dependence; Z99.81 Dependence on supplemental oxygen
CPT/HCPCS: 0241U; 36415; 71045; 80048; 80053; 82803; 83880; 85025; 85027; 93005; 93010; 94640; 94644; 94645; 94660; 94664; 94760; 94762; 96365; 96375; 96376; 97163; 97166; 97535; 99285-25; A9270; C1751; J0456; J0696; J1650; J2060; J2930; J3360; J3475; J7030; J7050; J7512

== ENCOUNTER 2023-01-01 11:08 | Emergency (ER) | payer OTHER ==
[~2023-01-01] VITALS: Ht 162.6 cm; Wt 74.8 kg
[~2023-01-01 11:08] MED LIST changes: +LEVO750 PO; +Loratadine10 MG PO; +Tessalon200 MG PO
[2023-01-01 11:56] LABS: BASOPHILS ABSOLUTE AUTO 0.07 K/mm3 (0.00-0.23); BASOPHILS PERCENT AUTO 1 % (0-2); EOSINOPHILS ABSOLUTE AUTO 0.27 K/mm3 (0.00-0.68); EOSINOPHILS PERCENT AUTO 3 % (0-6); Hematocrit 38.2 % (33.0-51.0); Hemoglobin 12.3 g/dL (11.5-16.0); IMMATURE GRAN ABSOLUTE AUTO 0.03 K/mm3 (0.00-0.10); IMMATURE GRAN PERCENT AUTO 0 % (0-1); LYMPHOCYTES ABSOLUTE AUTO 1.03 K/mm3 (0.84-5.20); LYMPHOCYTES PERCENT AUTO 13 % (21-46); MONOCYTES ABSOLUTE AUTO 0.62 K/mm3 (0.16-1.47); MONOCYTES PERCENT AUTO 8 % (4-13); Mean Corpuscular HGB 26.5 pg (26.0-34.0); Mean Corpuscular HGB Conc 32.2 g/dL (31.5-36.5); Mean Corpuscular Volume 82 fL (80-100); Mean Platelet Volume 9.3 fL (9.1-12.4); NEUTROPHILS ABSOLUTE AUTO 6.01 K/mm3 (1.96-9.15); NEUTROPHILS PERCENT AUTO 75 % (41-73); Platelet Count 424 K/mm3 (150-400); RDW Coefficient Variation 14.4 % (11.7-14.2); RDW Standard Deviation 42.4 fL (35.1-46.3); Red Blood Cell Count 4.65 M/mm3 (3.80-5.20); White Blood Cell Count 8.03 K/mm3 (4.00-11.30)
[2023-01-01 12:19] LABS: Albumin, Blood 3.4 g/dL (3.4-5.0); Albumin/Globulin Ratio 0.9 (0.8-1.8); Bilirubin, Total 0.5 mg/dL (0.1-1.0); Bun/Creatinine Ratio 13.7 (12.0-20.0); Calcium, Blood 8.6 mg/dL (8.5-10.1); Creatinine, Blood 0.73 mg/dL (0.40-1.00); Globulin, Blood 3.6 g/dL (2.2-4.0); Potassium, Blood 3.6 mmol/L (3.5-5.5)
[2023-01-01 14:13] LABS: Adenovirus Not Detected (NOT DETECT); Bordetella pertussis Not Detected (NOT DETECT); Chlamydophila pneumoniae Not Detected (NOT DETECT); Coronavirus 229E Not Detected (NOT DETECT); Coronavirus HKU1 Detected (NOT DETECT); Coronavirus NL63 Not Detected (NOT DETECT); Coronavirus OC43 Not Detected (NOT DETECT); Human Metapneumovirus Not Detected (NOT DETECT); Human Rhinovirus/Enterovirus Not Detected (NOT DETECT); Influenza A/2009-H1 Not Detected (NOT DETECT); Influenza A/H1 Not Detected (NOT DETECT); Influenza A/H3 Not Detected (NOT DETECT); Influenza B Not Detected (NOT DETECT); Mycoplasma pneumoniae Not Detected (NOT DETECT); Parainfluenza Virus 1 Not Detected (NOT DETECT); Parainfluenza Virus 2 Not Detected (NOT DETECT); Parainfluenza Virus 3 Not Detected (NOT DETECT); Parainfluenza Virus 4 Not Detected (NOT DETECT); Respiratory Syncytial Virus Not Detected (NOT DETECT); SARS-Cov-2 (COVID-19), BioFire Not Detected (NOT DETECT)
[2023-01-01] MEDS ORDERED: Prednisone20 MG PO (14:53)
== END 2023-01-01 15:12 | disposition home or self-care (01) ==
LOC: ER 11:08
PROVIDERS: Physician Assistant
DX: J44.1 Chronic obstructive pulmonary disease with (acute) exacerbation (principal); B34.9 Viral infection, unspecified; E78.5 Hyperlipidemia, unspecified; K21.9 Gastro-esophageal reflux disease without esophagitis; Z79.52 Long term (current) use of systemic steroids; Z79.899 Other long term (current) drug therapy; Z87.891 Personal history of nicotine dependence
CPT/HCPCS: 0202U; 71046; 80053; 83880; 84484; 85025; 94640; 94664; A9270; J2930

== ENCOUNTER 2023-02-24 19:20 | Inpatient (IN) | payer OTHER ==
[~2023-02-24] VITALS: Ht 152.4 cm; Wt 80.5 kg
[~2023-02-24 19:20] MED LIST changes: +Incruse Ellipta INH
[2023-02-24 19:45] LABS: BASOPHILS ABSOLUTE AUTO 0.07 K/mm3 (0.00-0.23); BASOPHILS PERCENT AUTO 1 % (0-2); EOSINOPHILS ABSOLUTE AUTO 0.58 K/mm3 (0.00-0.68); EOSINOPHILS PERCENT AUTO 4 % (0-6); Hematocrit 39.4 % (33.0-51.0); Hemoglobin 12.5 g/dL (11.5-16.0); IMMATURE GRAN ABSOLUTE AUTO 0.04 K/mm3 (0.00-0.10); IMMATURE GRAN PERCENT AUTO 0 % (0-1); LYMPHOCYTES ABSOLUTE AUTO 1.74 K/mm3 (0.84-5.20); LYMPHOCYTES PERCENT AUTO 12 % (21-46); MONOCYTES ABSOLUTE AUTO 1.01 K/mm3 (0.16-1.47); MONOCYTES PERCENT AUTO 7 % (4-13); Mean Corpuscular HGB 25.8 pg (26.0-34.0); Mean Corpuscular HGB Conc 31.7 g/dL (31.5-36.5); Mean Corpuscular Volume 81 fL (80-100); NEUTROPHILS ABSOLUTE AUTO 10.89 K/mm3 (1.96-9.15); NEUTROPHILS PERCENT AUTO 76 % (41-73); Platelet Count 426 K/mm3 (150-400); RDW Coefficient Variation 14.4 % (11.7-14.2); RDW Standard Deviation 41.6 fL (35.1-46.3); Red Blood Cell Count 4.84 M/mm3 (3.80-5.20); White Blood Cell Count 14.33 K/mm3 (4.00-11.30)
[2023-02-24 20:11] LABS: Albumin, Blood 3.8 g/dL (3.4-5.0); Bilirubin, Total 0.6 mg/dL (0.1-1.0); Bun/Creatinine Ratio 13.8 (12.0-20.0); Calcium, Blood 8.6 mg/dL (8.5-10.1); Creatinine, Blood 0.65 mg/dL (0.40-1.00); Globulin, Blood 3.7 g/dL (2.2-4.0); Potassium, Blood 3.5 mmol/L (3.5-5.5); Total Protein, Blood 7.5 g/dL (6.4-8.2)
--- NOTE | 2023-02-25 00:47 | NUR ---
PATIENT HAS BEEN EXTREMELY ANXIOUS AND ANIMATED SINCE REACHING HER ROOM. ASKING FOR SOMETHING TO HELP HER "CALM DOWN" SO SHE COULD SLEEP. ALSO COMPLAINING OF 7-8/10 CHEST AND SCAPULAR PAIN WITH HER FREQUENT STRONG COUGH. WILL PLACE CALL TO NIGHT HOSPITALIST TO SEE WHAT WE CAN DO TO PROVIDE HER WITH SOME COMFORT
[2023-02-25 04:57] LABS: BASOPHILS ABSOLUTE AUTO 0.01 K/mm3 (0.00-0.23); BASOPHILS PERCENT AUTO 0 % (0-2); EOSINOPHILS PERCENT AUTO 0 % (0-6); Hematocrit 38.5 % (33.0-51.0); Hemoglobin 12.1 g/dL (11.5-16.0); IMMATURE GRAN ABSOLUTE AUTO 0.06 K/mm3 (0.00-0.10); IMMATURE GRAN PERCENT AUTO 0 % (0-1); LYMPHOCYTES ABSOLUTE AUTO 0.42 K/mm3 (0.84-5.20); LYMPHOCYTES PERCENT AUTO 3 % (21-46); MONOCYTES ABSOLUTE AUTO 0.06 K/mm3 (0.16-1.47); MONOCYTES PERCENT AUTO 0 % (4-13); Mean Corpuscular HGB Conc 31.4 g/dL (31.5-36.5); Mean Corpuscular Volume 83 fL (80-100); Mean Platelet Volume 9.7 fL (9.1-12.4); NEUTROPHILS ABSOLUTE AUTO 13.94 K/mm3 (1.96-9.15); NEUTROPHILS PERCENT AUTO 96 % (41-73); Platelet Count 444 K/mm3 (150-400); RDW Coefficient Variation 14.6 % (11.7-14.2); RDW Standard Deviation 43.3 fL (35.1-46.3); Red Blood Cell Count 4.66 M/mm3 (3.80-5.20); White Blood Cell Count 14.49 K/mm3 (4.00-11.30)
--- NOTE | 2023-02-25 06:45 | NUR ---
TABBY SLEPT VERY WELL AFTER ARRIVING ANXIOUSLY TO HER ROOM LAST NIGHT. SHE IS A&OX4, AND COOPERATIVE WITH CARE. HER ANXIETY STEMMED FROM BEING VENTILATED 2-3 YEARS AGO WHEN SHE CAME IN WITH A COPD EXACERBATION. SATURATIONS REMAINAED IN THE MID 90'S ALL NIGHT. PATIENT DID COMPLAIN BRIEFLY OF PLEURITIC PAIN WITH HER VERY HARSH DRY COUGH
--- NOTE | 2023-02-25 18:13 | NUR ---
SHIFT SUMMARY- PT IS A/O, PLESATN AND COOPERATIVE. SHE SLEPT INTERMITENTLY DURING THIS SHIFT. SHE IS WORKING WITH RT. EATING AND DRINKING WELL. HER BED IS IN THE LOW POSTION AND CALL LIGHT IS WITHIN REACH.
--- NOTE | 2023-02-26 06:30 | NUR ---
Shift Summary Pt experiencing hacking productive cough and c/o anxiety and insomnia at the start of shift. Called hospitalist who ordered Robitussin DM 2 tblspn Q4 prn. Gave cough medicine and Hydroxyzine for anxiety per EMAR, pt was able to sleep and slept well t/o most of this shift. Pt on 3L O2 NC t/o the night. AOx4, pleasant and cooperative with care.
--- NOTE | 2023-02-26 10:06 | NUR ---
NOTE PT RESTING QUIETLY. EASILY AROUSED. SHE JUST DOESN'T WANT TO WAKE UP. FEELIN G GOOD ENOUGH TO SLEEP. AUDIBLE WHEEZE HEARD FROM THE DOOR. DECLINED BREAKFAST. AROUSED TO TAKE HER PILLS. CONTINUE POC.
--- NOTE | 2023-02-26 14:27 | NUR ---
NOTE RESTING QUIETLY. AFTER HER LAST BREATHING TREATMENT SHE COUGHED UP SEVERAL GREEN GLOBS OF SPUTUM. HER COUGH IS BARKY AND TIGHT SOUNDING. SHE HAS GONE BACK TO SLEEP. LAYING FLAT. RESP EVEN AND UNALBORED ON 3L N/C. CONTINUE POC.
--- NOTE | 2023-02-27 05:17 | NUR ---
Shift Summary Powerglide 18g placed in BHUPENDRA, pt is a difficult IV stick. During administration of Rocephen pt had an adverse reaction: elevated HR, flushing, diaphoresis, anxiety, and pain in the injection site. Hospitalist notified who said to notify day shift nurse and doctor. Rocephen added to Allergies in electronic chart. Within 15 minutes she was feeling normal. Slept well t/o the night. AOx4, independent, VSS, pleasant and cooperative.
--- NOTE | 2023-02-27 15:54 | NUR ---
evening note PT A/OX3. INDENDNET IN THE ROOM. DEEP, DRY HACKING COUGH NOTED. MEDCIATED WITH COUGH SYRUP X1. EFFECTIVE. RIGHT UIE POWER GLIDE INFUSING WELL. PT C/O OF A HEADACHE. MEDICATED WITH TYLENOL. EFFECTIVE FOR COMFORT. LUNGS WGHEEZY T/O. MAINTAINING 3L N/C. COUGHING UP SMALL AMOUNTS OF GREEN SPUTUM. DENIES PAIN WITH COUGHING. SPENDS A LOT OF HER TIME SLEEPING. CONTINUE POC.
--- NOTE | 2023-02-28 04:47 | NUR ---
SUMMARY: NO ACUTE EVENTS OVERNIGHT. PATIENT HAD REFLUX, RECIEVED ORDER FOR TUMS AFTER NO RELIEF WITH ZOFRAN AND PEPCID. PRN ANXIETY AND COUGH MEDS GIVEN. PATIENT AMBULATING INDEPENDENTLY IN ROOM. PATIENT HAS A LOT OF ANXIETY RELATED TO IV AND ANY TIME IT IS USED. VSS. CALL LIGHT IN REACH.
--- NOTE | 2023-02-28 16:45 | NUR ---
NOTE PT MORE ACTIVE TODAY. SITTING UP TALKING ONTHE PHONE. EATING MEALS. LESS COUGHING. MEDCIATED WITH COUGH SYRUP X2. PT C/O OF HEARTBURN AND WANTS TUMS. OFFERED HER CRACKERS AND APPLE JUICE. MEDCIATED STONECUTTER HAND WITH TYLNOL FOR HEAD ACHE. CONTINUE POC.
--- NOTE | 2023-03-01 04:43 | NUR ---
Summary: No acute events overnight. Patient AOx4, VSS, ambulating independently. Patient lungs sound much better this evening compared to yesterday. PRN meds given per EMAR. Call light in reach.
[2023-03-01 05:09] LABS: Hematocrit 38.6 % (33.0-51.0); Hemoglobin 12.1 g/dL (11.5-16.0); Mean Corpuscular HGB 25.3 pg (26.0-34.0); Mean Corpuscular HGB Conc 31.3 g/dL (31.5-36.5); Mean Corpuscular Volume 81 fL (80-100); Mean Platelet Volume 9.1 fL (9.1-12.4); Platelet Count 573 K/mm3 (150-400); RDW Coefficient Variation 14.4 % (11.7-14.2); RDW Standard Deviation 42.2 fL (35.1-46.3); Red Blood Cell Count 4.79 M/mm3 (3.80-5.20); White Blood Cell Count 14.99 K/mm3 (4.00-11.30)
[2023-03-01 05:38] LABS: Bun/Creatinine Ratio 41.8 (12.0-20.0); Calcium, Blood 8.9 mg/dL (8.5-10.1); Creatinine, Blood 0.62 mg/dL (0.40-1.00); Magnesium, Blood 2.6 mg/dL (1.6-2.4); Potassium, Blood 4.1 mmol/L (3.5-5.5)
[2023-03-01] MEDS ORDERED: ANORO ELLIPTA1 EACH INH (16:08)
[2023-03-01] MEDS ORDERED: Calcium Carbon500 MG PO (16:09)
[2023-03-01] MEDS ORDERED: ROBITUSSIN30 MG/511 PO (16:17)
[2023-03-01] MEDS ORDERED: VISBIOME 112.51 EACH PO (16:17)
[2023-03-01] MEDS ORDERED: DOCU100 PO (16:17)
[2023-03-01] MEDS ORDERED: ALMACONE SUSPE355 ML PO (16:19)
[2023-03-01] MEDS ORDERED: LEVO750 PO (16:20)
[2023-03-01] MEDS ORDERED: Prednisone10 MG PO (16:22)
--- NOTE | 2023-03-01 17:08 | NUR ---
SHIFT/DISCHARGE SUMMARY: PATIENT A&OX4. ANXIOUS AT TIMES. PLEASANT AND COOPERATIVE c CARE. USES CALL LIGHT APPROPRIATELY AND ABLE TO MAKE NEEDS KNOWN. PATIENT DENIES CP/PRESSURE, N/V. REPORTS MILD SOB c AMBULATIONS. PATIENT ON RA c SPO2 92-95% T/O SHIFT. LUNGS TIGHT AND COARSE T/O TO AUSCULTATION. PATIENT RECEIVED SCHEDULED BREATHING TX ADMINISTERED BY RT. PATIENT HAD HOME O2 EVAL. PATIENT AMBULATES IN THE HALLWAY AND BACK IN ROOM c RT AND TOLERATED WELL. RT RECOMMENDED 4L OF O2 VIA NC. PATIENT RECEIVED SCHEDULED MEDS PER EMAR. VITAL SIGNS REVIEWED. POWERGLIDE TO BHUPENDRA PEREZ. PATIENT DISCHARGE HOME. DISCHARGE INSTRUCTION PACKET GIVEN TO PATIENT. EDUCATE PATIENT REGARDING ADMITTING DX, S/S, TX AND NEW PRESCRIBED MEDICATIONS. PATIENT STATED UNDERSTANDING AND NO FURTHER QUESTIONS. RX WAS FAXED TO PATIENT PREFERRED PHARMACY ([facility]). PATIENT IS READY TO GO HOME, AWAITING FOR RIDES AT THIS TIME.
--- NOTE | 2023-03-01 18:19 | NUR ---
ADDITIONAL NOTES: ALL PATIENT PERSONAL BELONGINGS WERE SENT HOME c THE PATIENT. PATIENT LEFT THE ROOM AT AROUND 1820. PATIENT WAS TRANSPORTED VIA WHEELCHAIR BY [facility] STAFF, LISSETTE BARRON TO PATIENT SON PRIVATE VEHICLE.
== END 2023-03-01 16:53 | disposition home or self-care (01) | DRG 193 ==
LOC: ER 19:20 → MEDS 21:25
PROVIDERS: Emergency Medicine; Internal Medicine; ADMIT Hospitalist
DX: J18.9 Pneumonia, unspecified organism (principal); J96.21 Acute and chronic respiratory failure with hypoxia; J44.1 Chronic obstructive pulmonary disease with (acute) exacerbation; J44.0 Chronic obstructive pulmonary disease with (acute) lower respiratory infection; J96.12 Chronic respiratory failure with hypercapnia; R77.8 Other specified abnormalities of plasma proteins; E78.5 Hyperlipidemia, unspecified; K21.9 Gastro-esophageal reflux disease without esophagitis; K44.9 Diaphragmatic hernia without obstruction or gangrene; F41.0 Panic disorder [episodic paroxysmal anxiety]; T36.1X5A Adverse effect of cephalosporins and other beta-lactam antibiotics, initial encounter; Z98.890 Other specified postprocedural states; Z90.710 Acquired absence of both cervix and uterus; Z96.652 Presence of left artificial knee joint; Z79.899 Other long term (current) drug therapy; Z79.51 Long term (current) use of inhaled steroids; Z87.891 Personal history of nicotine dependence
CPT/HCPCS: 36415; 71045; 80048; 80053; 83735; 85025; 85027; 93005; 93010; 94640; 94664; 94760; 94761; 96365; 96366; 96375; 99285-25; A9270; C1751; J0456; J0696; J1650; J2060; J2405; J2930; J7030; J7050; Q0177

== ENCOUNTER 2023-09-10 14:13 | Inpatient (IN) | payer OTHER ==
[~2023-09-10] VITALS: Ht 152.4 cm; Wt 76.6 kg
[~2023-09-10 14:13] MED LIST changes: +ALMACONE SUSPE355 ML PO; +ANORO ELLIPTA1 EACH INH; +Calcium Carbon500 MG PO; +DOCU100 PO; +ROBITUSSIN30 MG/511 PO
[2023-09-10 15:28] LABS: BASOPHILS PERCENT AUTO 1 % (0-2); EOSINOPHILS ABSOLUTE AUTO 0.54 K/mm3 (0.00-0.68); EOSINOPHILS PERCENT AUTO 8 % (0-6); Hematocrit 38.9 % (33.0-51.0); Hemoglobin 12.2 g/dL (11.5-16.0); IMMATURE GRAN ABSOLUTE AUTO 0.01 K/mm3 (0.00-0.10); IMMATURE GRAN PERCENT AUTO 0 % (0-1); LYMPHOCYTES ABSOLUTE AUTO 2.41 K/mm3 (0.84-5.20); LYMPHOCYTES PERCENT AUTO 34 % (21-46); MONOCYTES ABSOLUTE AUTO 0.75 K/mm3 (0.16-1.47); MONOCYTES PERCENT AUTO 11 % (4-13); Mean Corpuscular HGB 24.2 pg (26.0-34.0); Mean Corpuscular HGB Conc 31.4 g/dL (31.5-36.5); Mean Corpuscular Volume 77 fL (80-100); Mean Platelet Volume 9.5 fL (9.1-12.4); NEUTROPHILS ABSOLUTE AUTO 3.31 K/mm3 (1.96-9.15); NEUTROPHILS PERCENT AUTO 47 % (41-73); Platelet Count 537 K/mm3 (150-400); RDW Coefficient Variation 14.7 % (11.7-14.2); RDW Standard Deviation 40.7 fL (35.1-46.3); Red Blood Cell Count 5.04 M/mm3 (3.80-5.20); White Blood Cell Count 7.12 K/mm3 (4.00-11.30)
[2023-09-10 15:30] LABS: Base Excess Venous 1.5 mmol/L; Bicarbonate Venous 25.6 mmol/L (24.0-30.0); PCO2 Venous 40.2 mmHg (38-42); pH Blood Venous 7.42 (7.34-7.37)
[2023-09-10 15:47] LABS: Albumin, Blood 3.8 g/dL (3.4-5.0); Albumin/Globulin Ratio 0.9 (0.8-1.8); Bilirubin, Total 0.6 mg/dL (0.1-1.0); Bun/Creatinine Ratio 14.3 (12.0-20.0); Calcium, Blood 9.1 mg/dL (8.5-10.1); Creatinine, Blood 0.91 mg/dL (0.40-1.00); Globulin, Blood 4.1 g/dL (2.2-4.0); Potassium, Blood 4.3 mmol/L (3.5-5.5); Total Protein, Blood 7.9 g/dL (6.4-8.2)
[2023-09-10 19:25] LABS: Influenza A, PCR NEGATIVE (NEGATIVE); Influenza B, PCR NEGATIVE (NEGATIVE); Resp Syncytial Virus, PCR NEGATIVE (NEGATIVE); SARS-Cov-2 (COVID-19) PCR, MMC NEGATIVE (NEGATIVE)
[2023-09-10 22:30] LABS: Adenovirus Not Detected (NOT DETECT); Bordetella pertussis Not Detected (NOT DETECT); Chlamydophila pneumoniae Not Detected (NOT DETECT); Coronavirus 229E Not Detected (NOT DETECT); Coronavirus HKU1 Not Detected (NOT DETECT); Coronavirus NL63 Not Detected (NOT DETECT); Coronavirus OC43 Not Detected (NOT DETECT); Human Metapneumovirus Not Detected (NOT DETECT); Human Rhinovirus/Enterovirus Not Detected (NOT DETECT); Influenza A/2009-H1 Not Detected (NOT DETECT); Influenza A/H1 Not Detected (NOT DETECT); Influenza A/H3 Not Detected (NOT DETECT); Influenza B Not Detected (NOT DETECT); Mycoplasma pneumoniae Not Detected (NOT DETECT); Parainfluenza Virus 1 Not Detected (NOT DETECT); Parainfluenza Virus 2 Not Detected (NOT DETECT); Parainfluenza Virus 3 Not Detected (NOT DETECT); Parainfluenza Virus 4 Not Detected (NOT DETECT); Respiratory Syncytial Virus Not Detected (NOT DETECT); SARS-Cov-2 (COVID-19), BioFire Not Detected (NOT DETECT)
[2023-09-10 22:55] VITALS: BP 150/68
[2023-09-11 04:15] VITALS: BP 134/73
--- NOTE | 2023-09-11 04:33 | NUR ---
SHIFT SUMMARY 57 YR F ADMITTED ON FOR COPD EXACERBATION. FULL CODE. PT IS A&O X 4 AND IS INDEPENDANT IN THE ROOM. LUNG SOUNDS ARE WHEEZY AND DIMINISHED. SHE HAS A PERSISTANT, PRODUCTIVE COUGH AND HAS FREQUENT "COUGHING FITS". SHE IS CURRENTLY RECEIVING IV STEROIDS AND C/O RESTLESSNESS AND NOT BEING ABLE TO SLEEP. A ONE-TIME ORDER WAS OBTAINED FOR 3 MG MELATONON AMD 0.5 MG ATIVAN. SHE IS PLEASANT, COOPERATIVE, AND PRO ACTIVE IN HER OWN CARE.
[2023-09-11 08:11] VITALS: BP 132/92
[2023-09-11 15:11] VITALS: BP 150/126
--- NOTE | 2023-09-11 17:55 | NUR ---
SHIFT SUMMARY PT AxOx4. PLEASANT AND COOPERATIVE WITH CARE. PT CALLS APPROPRIATELY, AND IS INDEPENDENT IN THE ROOM. PT HAS HAD MULTIPLE HACKING COUGHING FITS T/O THE DAY. SHE WAS PROVIDED MEDICATIONS PER EMAR WITH REPORTED RELIEF. LS DIM WITH FINE WHEEZE IN BASES. PT USING 3L O2 VIA NC PRN, WHICH IS HER BASELINE. SHE ALSO REQUESTED RESP THERAPY IN FOR BREATHING TX THIS SHIFT. PT IS RECEIVING IV STEROIDS. PT REPORTS DIARRHEA x2 THIS AM. PT ALSO REPORTED MILD ANXIETY AND RESTLESSNESS TODAY. PROVIDER NOTIFIED. PT IS CURRENTLY EATING DINNER IN BED. DENIES ANY NEEDS AT THIS TIME. CALL LIGHT IN REACH.
[2023-09-11 18:05] VITALS: BP 101/67
[2023-09-11 19:25] VITALS: BP 140/77
[2023-09-12 03:10] VITALS: BP 116/66
--- NOTE | 2023-09-12 06:37 | NUR ---
SHIFT SUMMARY PT VERY ANXIOUS AT CHANGE OF SHIFT REQUESTING ANXIETY MEDICATION, ASKED HER IF THE ATIVAN SHE RECEIVED THE PREVIOUS NIGHT HELPED, SHE SAID IT DID. CALLED RONY PEREZ TO REQUEST ANXIETY MEDICATION AND SOMETHING ADDITIONAL FOR CONGESTION PER PT REQUEST. ONE TIME ORDER OF ATIVAN AND ROBITUSSIN DM GIVEN WITH DESIRED EFFECT. PT DID WAKE UP A FEW TIMES LATER IN THE NIGHT WITH COUGHING FITS. AROUND 0400 SHE WOKE UP WITH ANOTHER COUGHING SPELL WHICH SHE PANICKED SCREAMING FOR HELP YELLING "I CANT BREATHE, HELP" COUGHING NON-STOP SHE WAS VERY ANXIOUS AND WAS ABLE TO CALM DOWN FOR A FEW MINUTES AND THEN SHE WOULD PANIC AGAIN. CALLED DR. FLORES TO REQUEST ADDITIONAL ATIVAN. ORDER RECEIVED AND GIVEN WITH RESOLUTION OF ANXIETY. PT CURRENTLY SLEEPING.
[2023-09-12 07:34] VITALS: BP 99/69
--- NOTE | 2023-09-12 17:03 | NUR ---
SHIFT SUMMARY: PT A&O X4. COOPERATIVE WITH CARE. PT HAD ANXIETY ATTACK THIS AM. PT THOUGHT IT WOULD BE HELPFUL FOR HER ANXIETY TO SHOWER BUT REFUSED TO SHOWER WITH OXYGEN ON. SHORTLY AFTER, PT STEPPED OUT IN [place] W/O CLOTHES ON STATING "I CAN'T BREATHE." STAFF WENT TO PT ROOM TO HELP AND OBTAINED AN OXYGEN SATURATION OF 96-97% AND A PULSE IN 120'S-130'S. WENT TO DR. LOMBARDO OFFICE TO OBTAIN ANXIETY MEDICATION. PT RECEIVED ATARAX AND TESSALON DUE TO HARSH COUGH. WHEN LOOKING AT EMAR, THIS RN NOTICED PT HAS BEEN REFUSING BREATHING TREATMENTS LAST NIGHT AND TWICE TODAY. WHEN ASKING PT ABOUT REFUSALS, PT STATES "I ONLY REFUSED ONE THIS MORNING." PT ASKING TO HAVE RESCUE INHALER AT BEDSIDE. EXPLAINED TO PT REASON WHY MEDS CANNOT BE AT BEDSIDE. PT APPEARED TO UNDERSTAND. PT HAS BEEN ABLE TO SLEEP MOST OF THE AFTERNOON W/O COUGH, PAIN, OR ANXIETY. PT RECEIVING IV STERIODS WHICH SHE BELIEVES IN CONTRIBUTING TO ANXIETY. ON 3L MAINTAINING SATS >92%. CALL LIGHT IN REACH. BED IN LOWEST POSITION.
[2023-09-12 17:12] VITALS: BP 132/84
[2023-09-12 19:28] VITALS: BP 109/61
[2023-09-13 02:30] VITALS: BP 108/63
--- NOTE | 2023-09-13 03:40 | NUR ---
SHIFT SUMMARY PT RESTING QUIETLY AT START OF SHIFT, AFTER VISITOR LEFT. PT REQUESTING HS MEDS SO SHE COULD "GO TO SLEEP EARLY". PT ALSO C/O TAPE TO RAC IV WAS "ITCHING". DRSG CHANGED AND PT REPORTED IT WAS MUCH BETTER. PT REPORTED BREATHING IMPROVED; AT BASELINE O2. STILL RECEIVING IV STEROIDS AND IV ABX, PER EMAR. UP INDEPENDENTLY IN RM AND TO BTHRM. HAS RESTED WELL TO PRESENT THIS SHIFT. CALL LT IN REACH.
[2023-09-13 07:30] VITALS: BP 103/58
[2023-09-13 15:38] VITALS: BP 102/62
--- NOTE | 2023-09-13 17:24 | NUR ---
SHIFT SUMMARY: PT A&OX4. PT PLEASANT AND COOPERATIVE WITH CARE. PT HAD ONE ANXIETY ATTACK THIS SHIFT AROUND 1230 STATING SHE COULD NOT BREATHE. 02 SATS OBTAINED WITH A READING OF 96%. TESSALON PROVIDED WELL FOR COUGH. PT RECEIVED ATARAX WITH AM MEDS. RESPIRATORY GAVE BREATHING TREATMENT AND ALBUTEROL INHALER. PT BEGAN TO BECOME LESS ANXIOUS SHORTLY AFTER INHALER. PT C/O 6-06/03 PAIN FROM HEADACHE. PAIN MEDS PROVIDED PER EMAR. CALL LIGHT IN REACH. BED IN LOWEST POSITION.
[2023-09-13 19:32] VITALS: BP 128/76
[2023-09-14 04:25] VITALS: BP 109/67
--- NOTE | 2023-09-14 06:16 | NUR ---
SUMMARY: PT A/OX4, CALLS APPROPRIATELY TO SPECIFY NEEDS AND IS PLEASANT AND COOPERATIVE W/CARE. SHE'S UP INDEPENDENTLY AND IS AWARE OF LIMITATIONS. NEW IV PLACED VIA U/S THIS SHIFT AND IV RUNNING AT TKO. SPUTUM SPECIMEN WAS OBTAINED AND SENT, CX PENDING. LS REMAIN TIGHT BUT LESS CONGESTION AUSCULTATED AND SPO2 WNL ON 3L O2 PER BASELINE. SHE RECIEVED MELATONIN AND ATARAX AT BEDTIME PER PT REQUEST FOR SLEEP AND ANXIETY. PT ALSO WAS GIVEN MOTRIN FOR RELIEF OF [place]. VSS/AFEBRILE, NO ACUTE CHANGES. WCTM AND REPORT TO DAY RN.
[2023-09-14 07:40] VITALS: BP 130/80
[2023-09-14 08:40] LABS: Mean Corpuscular HGB 23.8 pg (26.0-34.0); Mean Corpuscular HGB Conc 30.6 g/dL (31.5-36.5); Mean Corpuscular Volume 78 fL (80-100); Mean Platelet Volume 9.2 fL (9.1-12.4); Platelet Count 495 K/mm3 (150-400); RDW Coefficient Variation 15.6 % (11.7-14.2); Red Blood Cell Count 4.63 M/mm3 (3.80-5.20); White Blood Cell Count 15.42 K/mm3 (4.00-11.30)
[2023-09-14 08:50] LABS: Albumin, Blood 3.2 g/dL (3.4-5.0); Anion Gap 4 mmol/L (6-16); Blood Urea Nitrogen 20 mg/dL (8-24); Bun/Creatinine Ratio 27.6 (12.0-20.0); CO2, Blood 27 mmol/L (21-32); Calcium, Blood 8.2 mg/dL (8.5-10.1); Chloride, Blood 111 mmol/L (98-108); Creatinine, Blood 0.73 mg/dL (0.40-1.00); Glomerular Filtration Rate 95 (60-); Glucose, Blood 136 mg/dL (70-99); Phosphorus, Blood 3.5 mg/dL (2.5-4.9); Sodium, Blood 142 mmol/L (136-145)
[2023-09-14 16:01] VITALS: BP 97/70
--- NOTE | 2023-09-14 18:08 | NUR ---
SHIFT SUMMARY VSS. PT ANXIETY IS BEING MANAGED WITH ATARAX, PT REMINDED TO UTELIZE THE INCENTIVE SPIROMETRY AND FLUTTER VALVE TO IMPROVE RESPIRATORY FUNCTION. PT A&OX4. PT INDEPENDENT IN THE SHOWER. NO ACUTE EVENTS DURING MY SHIFT. PT LEFT IN A POSITION OF COMFORT.
[2023-09-14 19:43] VITALS: BP 122/88
--- NOTE | 2023-09-15 04:09 | NUR ---
SHIFT SUMMARY A/OX4. 3L NC. ABLE TO MAKE NEEDS KNOWN. INDEPENDENT TO BATHROOM. COUGH PRESENT. ORAL SUCTION SET UP AT BEDSIDE. EDUCATED PATIENT SOLU-MEDROL DOSE WAS DECREASED TO BID SO SHE REFUSED 2100 DOSE DUE TO RESTLNESSNESS. PATIENT DENIES SOB AT THIS TIME. DURING ROUNDS PATIENT WAS SLEEPING COMFORTABLY. CALL LIGHT IN REACH. NONSKID SOCKS ON.
[2023-09-15 05:44] VITALS: BP 115/74
[2023-09-15 06:06] LABS: Albumin, Blood 2.8 g/dL (3.4-5.0); Anion Gap 5 mmol/L (6-16); Blood Urea Nitrogen 23 mg/dL (8-24); CO2, Blood 26 mmol/L (21-32); Calcium, Blood 8.2 mg/dL (8.5-10.1); Chloride, Blood 110 mmol/L (98-108); Creatinine, Blood 0.72 mg/dL (0.40-1.00); Ferritin, Serum 21 ng/mL (8-252); Glomerular Filtration Rate 96 (60-); Glucose, Blood 105 mg/dL (70-99); Iron Serum 25 ug/dL (50-170); Percent Saturation 5.6 % (15.0-50.0); Potassium, Blood 4.5 mmol/L (3.5-5.5); Sodium, Blood 141 mmol/L (136-145); Total Iron Binding Capacity 449 ug/dL (250-450)
[2023-09-15 06:18] LABS: BASOPHILS ABSOLUTE AUTO 0.03 K/mm3 (0.00-0.23); BASOPHILS PERCENT AUTO 0 % (0-2); EOSINOPHILS PERCENT AUTO 0 % (0-6); Hematocrit 34.7 % (33.0-51.0); Hemoglobin 10.7 g/dL (11.5-16.0); IMMATURE GRAN ABSOLUTE AUTO 0.13 K/mm3 (0.00-0.10); IMMATURE GRAN PERCENT AUTO 1 % (0-1); LYMPHOCYTES ABSOLUTE AUTO 2.65 K/mm3 (0.84-5.20); LYMPHOCYTES PERCENT AUTO 19 % (21-46); MONOCYTES PERCENT AUTO 9 % (4-13); Mean Corpuscular HGB 23.9 pg (26.0-34.0); Mean Corpuscular HGB Conc 30.8 g/dL (31.5-36.5); Mean Corpuscular Volume 78 fL (80-100); Mean Platelet Volume 9.2 fL (9.1-12.4); NEUTROPHILS ABSOLUTE AUTO 9.69 K/mm3 (1.96-9.15); NEUTROPHILS PERCENT AUTO 71 % (41-73); Platelet Count 463 K/mm3 (150-400); RDW Coefficient Variation 15.5 % (11.7-14.2); Red Blood Cell Count 4.48 M/mm3 (3.80-5.20)
[2023-09-15 07:30] VITALS: BP 111/70
--- NOTE | 2023-09-15 12:18 | NUR ---
ASSUMED CARE OF PT. PT A&OX4. DR LANDRY AT BEDSIDE TO DISCUSS PLAN WITH PT. DR MARTINEZ UP DISCHARGE POSSIBLY TODAY, BUT THE PT VERBALIZED WANTING TO WAIT UNTIL TOMMOROW DUE TO NAUSEA/EMESIS WITHOUT A CAUSE. PT DEEMED MEDICALLY STABLE FOR DISCHARGE AND WILL RECEIVE FURTHER EDUCATION REGARDING ADHERENCE TO TREATMENT IN HOSPITAL.
--- NOTE | 2023-09-15 15:18 | NUR ---
SHIFT SUMMARY PT A&OX4. PT UP ADLIB IN ROOM. VSS. PT TO D/C HOME TOMORROW ON 09/[address] FAUST CARE PLAN. NO ACUTE EVENTS OCCURED DURING MY SHIFT. PT LEFT IN A POSITION OF SAFETY WITH BED LOCKED AND IN LOWEST POSITION, NONSKID SOCKS IN PLACE, ROOM CLEAR OF DEBRIS, AND CALL LIGHT WITHIN REACH.
[2023-09-15 16:08] VITALS: BP 121/88
[2023-09-15 19:52] VITALS: BP 133/117
[2023-09-15 20:22] VITALS: BP 122/74
[2023-09-16 04:45] VITALS: BP 104/66
--- NOTE | 2023-09-16 06:27 | NUR ---
SHIFT SUMMARY: PT IS ADMITTED FOR COPD EXACERBATION AND IS A FULL CODE. SHE IS ALERT AND ABLE TO MAKE HER NEED KNOWN. IS IND. WITH ADLS. CURRENTLY ON 2LPM OF O2 VIA NC TO MAINTAIN SPO2 GREATER THAN 90%. WAS GIVEN PRN IBU AT HS FOR HEADACHE THAT WAS EFFECTIVE. IV TO LEFT FOREARM IS PATENT WITH A DRESSING THAT IS CDI.
[2023-09-16 07:04] VITALS: BP 125/81
[2023-09-16] MEDS ORDERED: ASCO500 PO (10:41)
[2023-09-16] MEDS ORDERED: FERSU300 PO (10:41)
[2023-09-16] MEDS ORDERED: HYDHCL25 PO (10:42)
[2023-09-16] MEDS ORDERED: GUAI600T33 PO (10:42)
[2023-09-16] MEDS ORDERED: PRED1 PO (10:45)
--- NOTE | 2023-09-16 11:36 | NUR ---
DC- PT LEFT AT 1100 IN STABLE CONDITION. PT BROUGHT DOWN IN WC FOR DC TO FAMILY MEMBER. PT LEFT WITH ALL BELONGINGS.
== END 2023-09-16 10:59 | disposition home or self-care (01) | DRG 191 ==
LOC: ER 14:13 → MEDS 14:14
PROVIDERS: Emergency Medicine; Internal Medicine; Nurse Practitioner Acute Care; Physician Assistant; ADMIT Internal Medicine
DX: J44.1 Chronic obstructive pulmonary disease with (acute) exacerbation (principal); J96.11 Chronic respiratory failure with hypoxia; E78.5 Hyperlipidemia, unspecified; K21.9 Gastro-esophageal reflux disease without esophagitis; D50.9 Iron deficiency anemia, unspecified; D75.838 Other thrombocytosis; F41.9 Anxiety disorder, unspecified; Z99.81 Dependence on supplemental oxygen; Z79.52 Long term (current) use of systemic steroids; Z79.51 Long term (current) use of inhaled steroids; Z87.891 Personal history of nicotine dependence; Z11.52 Encounter for screening for COVID-19
CPT/HCPCS: 0202U; 0241U; 36415; 71046; 80053; 80069; 82728; 82803; 83540; 83550; 83880; 84484; 85025; 85027; 93005; 93010; 94640; 94644; 94664; 94760; 94762; 96365; 96374; 96375; 96376; 99285-25; A9270; G0378; J0456; J2405; J2930; J7050; J7512

== ENCOUNTER 2023-12-22 16:01 | Inpatient (IN) | payer OTHER ==
[~2023-12-22] VITALS: Ht 152.4 cm; Wt 74.9 kg
[~2023-12-22 16:01] MED LIST changes: +ASCO500 PO; +PRED1 PO
[2023-12-22 16:49] LABS: BASOPHILS ABSOLUTE AUTO 0.04 K/mm3 (0.00-0.23); BASOPHILS PERCENT AUTO 0 % (0-2); EOSINOPHILS ABSOLUTE AUTO 0.03 K/mm3 (0.00-0.68); EOSINOPHILS PERCENT AUTO 0 % (0-6); Hematocrit 38.2 % (33.0-51.0); IMMATURE GRAN ABSOLUTE AUTO 0.07 K/mm3 (0.00-0.10); IMMATURE GRAN PERCENT AUTO 1 % (0-1); LYMPHOCYTES ABSOLUTE AUTO 2.15 K/mm3 (0.84-5.20); LYMPHOCYTES PERCENT AUTO 14 % (21-46); MONOCYTES PERCENT AUTO 7 % (4-13); Mean Corpuscular HGB 23.5 pg (26.0-34.0); Mean Corpuscular HGB Conc 31.4 g/dL (31.5-36.5); Mean Corpuscular Volume 75 fL (80-100); NEUTROPHILS ABSOLUTE AUTO 12.06 K/mm3 (1.96-9.15); NEUTROPHILS PERCENT AUTO 79 % (41-73); RDW Coefficient Variation 15.6 % (11.7-14.2); RDW Standard Deviation 42.6 fL (35.1-46.3); White Blood Cell Count 15.35 K/mm3 (4.00-11.30)
[2023-12-22 16:51] LABS: Mean Platelet Volume 9.5 fL (9.1-12.4)
[2023-12-22 16:56] LABS: Influenza A, PCR NEGATIVE (NEGATIVE); Influenza B, PCR NEGATIVE (NEGATIVE); Resp Syncytial Virus, PCR NEGATIVE (NEGATIVE); SARS-Cov-2 (COVID-19) PCR, MMC NEGATIVE (NEGATIVE)
[2023-12-22 17:10] LABS: Albumin, Blood 3.1 g/dL (3.4-5.0); Albumin/Globulin Ratio 0.7 (0.8-1.8); Bilirubin, Total 0.5 mg/dL (0.1-1.0); Bun/Creatinine Ratio 21.3 (12.0-20.0); Calcium, Blood 8.8 mg/dL (8.5-10.1); Creatinine, Blood 0.66 mg/dL (0.40-1.00); Globulin, Blood 4.2 g/dL (2.2-4.0); Potassium, Blood 3.9 mmol/L (3.5-5.5); Total Protein, Blood 7.3 g/dL (6.4-8.2)
[2023-12-22 17:19] LABS: Platelet Count 527 K/mm3 (150-400)
[2023-12-22] MEDS ORDERED: HyDROXyzine HCl 25 MG Tab PO ONE (17:55)
[2023-12-22 18:38] LABS: Source, Urine Clean Catch
[2023-12-22 18:40] LABS: Appearance, Urine Clear (Clear); Blood, Urine 2+ (Neg); Color, Urine Yellow (P-Yellow); Glucose Qualitative, Urine Neg (Neg); Ketones, Urine 3+ (Neg); Leukocyte Esterase, Urine 1+ (Neg); Nitrite, Urine Neg (Neg); Protein, Urine 2+ (Neg); Urobilinogen, Urine 1+ (Normal)
[2023-12-22 18:50] LABS: U Amphetamine Screen DETECTED; U Barbituate Screen Not Detected; U Benzodiazapine Screen Not Detected; U Buprenorphine Screen Not Detected; U Cannabinoids Screen Not Detected; U Cocaine Screen Not Detected; U Methadone Screen Not Detected; U Methamphetamine Screen DETECTED; U Opiates Screen Not Detected; U Oxycodone Screen Not Detected; U Phencyclidine Screen Not Detected
[2023-12-22 18:51] LABS: Bilirubin, Urine 1+ (Neg)
[2023-12-22 18:51] LABS: International Normalized Ratio 0.98; Prothrombin Time Results 10.3 Sec (9.7-11.5)
[2023-12-22 18:52] LABS: Bacteria Many /hpf; Hyaline Casts 0-2 /lpf (0-2); Mucus Mod (0-Heavy); Squamous Epithelial Cells Few /hpf (Few)
[2023-12-22] MEDS ORDERED: HYDROcodone 10-APAP 325 TAB PO PRN (21:30)
[2023-12-22] MEDS ORDERED: FLU VACC QS2023-24(6MOS UP)/PF 60 MCG/0.5 ML SYRINGE IM SCH (21:30)
[2023-12-22] MEDS ORDERED: Acetaminophen 325 MG TABLET PO PRN (21:35)
[2023-12-22] MEDS ORDERED: Ondansetron HCl 2 MG / ML 2ML Vial IV PRN (21:35)
[2023-12-22] MEDS ORDERED: Lactated Ringer's 1,000 ML IV SCH (22:00)
[2023-12-22] MEDS ORDERED: IBUP600 PO (22:08)
[2023-12-22] MEDS ORDERED: EPINEPHRIN0.3 MG/0.1 IM (22:08)
[2023-12-22] MEDS ORDERED: COMBIVENT RESPIM4 G1 INH (22:10)
[2023-12-22] MEDS ORDERED: CYMBALTA30 M2 PO (22:12)
[2023-12-22 22:25] VITALS: BP 131/82
[2023-12-22] MEDS ORDERED: NS 250 ML IV PRN (22:45)
[2023-12-22] MEDS ORDERED: Albuterol 2.5 MG/3 ML VIAL INH PRN (23:15)
[2023-12-22] MEDS ORDERED: Ipratropium/Albuterol SulF 2.5-0.5MG/3 ML Amp INH SCH (23:15)
[2023-12-23 04:37] VITALS: BP 117/68
[2023-12-23 05:03] LABS: BASOPHILS ABSOLUTE AUTO 0.03 K/mm3 (0.00-0.23); BASOPHILS PERCENT AUTO 0 % (0-2); EOSINOPHILS ABSOLUTE AUTO 0.03 K/mm3 (0.00-0.68); EOSINOPHILS PERCENT AUTO 0 % (0-6); Hemoglobin 10.2 g/dL (11.5-16.0); IMMATURE GRAN ABSOLUTE AUTO 0.05 K/mm3 (0.00-0.10); IMMATURE GRAN PERCENT AUTO 0 % (0-1); LYMPHOCYTES ABSOLUTE AUTO 2.07 K/mm3 (0.84-5.20); LYMPHOCYTES PERCENT AUTO 17 % (21-46); MONOCYTES ABSOLUTE AUTO 1.03 K/mm3 (0.16-1.47); MONOCYTES PERCENT AUTO 8 % (4-13); Mean Corpuscular HGB 23.6 pg (26.0-34.0); Mean Corpuscular HGB Conc 30.9 g/dL (31.5-36.5); Mean Corpuscular Volume 76 fL (80-100); Mean Platelet Volume 9.4 fL (9.1-12.4); NEUTROPHILS ABSOLUTE AUTO 9.17 K/mm3 (1.96-9.15); NEUTROPHILS PERCENT AUTO 74 % (41-73); Platelet Count 449 K/mm3 (150-400); RDW Coefficient Variation 15.8 % (11.7-14.2); RDW Standard Deviation 43.4 fL (35.1-46.3); Red Blood Cell Count 4.33 M/mm3 (3.80-5.20); White Blood Cell Count 12.38 K/mm3 (4.00-11.30)
[2023-12-23 06:11] LABS: Albumin, Blood 2.5 g/dL (3.4-5.0); Albumin/Globulin Ratio 0.7 (0.8-1.8); Bilirubin, Total 0.4 mg/dL (0.1-1.0); Bun/Creatinine Ratio 20.6 (12.0-20.0); Calcium, Blood 8.5 mg/dL (8.5-10.1); Creatinine, Blood 0.68 mg/dL (0.40-1.00); Globulin, Blood 3.8 g/dL (2.2-4.0); Potassium, Blood 3.6 mmol/L (3.5-5.5); Total Protein, Blood 6.3 g/dL (6.4-8.2)
[2023-12-23 07:27] VITALS: BP 103/92
[2023-12-23] MEDS ORDERED: Docusate Sodium 100 MG Cap PO SCH (09:00)
[2023-12-23] MEDS ORDERED: Enoxaparin 40 MG/0.4 ML SYR SC SCH (09:00)
[2023-12-23] MEDS ORDERED: Lactobacil 2-S.Thermo-Bifido 1 1 Cap PO SCH (09:00)
[2023-12-23] MEDS ORDERED: Vancomycin HCL 1,250 MG in NS 250 ML IV SCH (10:00)
[2023-12-23] MEDS ORDERED: DiphenhydrAMINE HCL 25 MG Cap PO PRN (10:10)
[2023-12-23] MEDS ORDERED: PredniSONE 20 MG Tab PO ONE (11:00)
[2023-12-23 15:11] VITALS: BP 100/70
[2023-12-23] MEDS ORDERED: HyDROXyzine HCl 25 MG Tab PO PRN (16:10)
[2023-12-23 20:27] VITALS: BP 101/68
[2023-12-23] MEDS ORDERED: Triamcinolone Acet 0.1% Ointment 15 GM TOP SCH (21:00)
[2023-12-24 04:15] VITALS: BP 118/65
[2023-12-24 04:37] LABS: Hematocrit 29.8 % (33.0-51.0); Hemoglobin 9.2 g/dL (11.5-16.0); Mean Corpuscular HGB 23.7 pg (26.0-34.0); Mean Corpuscular HGB Conc 30.9 g/dL (31.5-36.5); Mean Corpuscular Volume 77 fL (80-100); Mean Platelet Volume 9.5 fL (9.1-12.4); Platelet Count 422 K/mm3 (150-400); RDW Coefficient Variation 15.6 % (11.7-14.2); RDW Standard Deviation 42.9 fL (35.1-46.3); Red Blood Cell Count 3.89 M/mm3 (3.80-5.20); White Blood Cell Count 11.26 K/mm3 (4.00-11.30)
[2023-12-24 05:04] LABS: Albumin, Blood 2.4 g/dL (3.4-5.0); Anion Gap 4 mmol/L (6-16); Blood Urea Nitrogen 16 mg/dL (8-24); Bun/Creatinine Ratio 23.3 (12.0-20.0); CO2, Blood 28 mmol/L (21-32); Calcium, Blood 8.4 mg/dL (8.5-10.1); Chloride, Blood 107 mmol/L (98-108); Creatinine, Blood 0.69 mg/dL (0.40-1.00); Glomerular Filtration Rate 99 (60-); Glucose, Blood 127 mg/dL (70-99); Magnesium, Blood 1.9 mg/dL (1.6-2.4); Phosphorus, Blood 3.6 mg/dL (2.5-4.9); Potassium, Blood 3.7 mmol/L (3.5-5.5); Sodium, Blood 139 mmol/L (136-145)
[2023-12-24] MEDS ORDERED: Omeprazole 20 MG CapCR PO SCH (07:25)
[2023-12-24 07:53] VITALS: BP 113/58
[2023-12-24 09:43] LABS: Vancomycin, Trough 13.7 ug/mL (5.0-10.0)
[2023-12-24] MEDS ORDERED: Mometasone/Formoterol MDI 200/5 mcg 13 GM INH SCH (09:50)
[2023-12-24] MEDS ORDERED: [UNRECOGNIZED DRUG - REMARK] XX STA (10:13)
[2023-12-24] MEDS ORDERED: PredniSONE 20 MG Tab PO SCH (13:00)
[2023-12-24] MEDS ORDERED: Famotidine 20 MG Tab PO SCH (13:00)
[2023-12-24 15:25] VITALS: BP 109/70
[2023-12-24] MEDS ORDERED: HyDROXyzine HCl 25 MG Tab PO SCH (18:00)
[2023-12-24 20:22] VITALS: BP 121/51
[2023-12-25 05:31] VITALS: BP 116/63
[2023-12-25 07:37] VITALS: BP 125/68
[2023-12-25] MEDS ORDERED: Calcium Carbonate 500 MG Tab Chew PO PRN (12:15)
[2023-12-25 12:26] LABS: ANTINUCLEAR AB (ANA),HEP-2,IGG <1:80 (<1:80)
[2023-12-25 15:38] VITALS: BP 150/89
[2023-12-25 19:25] VITALS: BP 109/70
[2023-12-25] MEDS ORDERED: Melatonin 5 MG Tablet PO SCH (21:00)
[2023-12-26 04:19] VITALS: BP 133/89
[2023-12-26 07:41] VITALS: BP 142/91
[2023-12-26] MEDS ORDERED: Ketorolac Tromethamine 15mg Vial IV PRN (13:05)
[2023-12-26 15:28] VITALS: BP 144/96
[2023-12-26 22:15] VITALS: BP 132/88
[2023-12-27] MEDS ORDERED: Vancomycin HCL 1,250 MG in NS 250 ML IV SCH (02:00)
[2023-12-27 04:38] VITALS: BP 135/84
[2023-12-27 08:06] VITALS: BP 129/86
[2023-12-27 14:37] VITALS: BP 133/94
[2023-12-27 19:54] VITALS: BP 139/97
[2023-12-28 03:12] VITALS: BP 121/72
[2023-12-28 08:10] VITALS: BP 122/85
[2023-12-28] MEDS ORDERED: HYDHCL25 PO (11:24)
[2023-12-28] MEDS ORDERED: PRED20 PO (11:24)
[2023-12-29] MEDS ORDERED: OMEP20ER PO (20:07)
[2024-01-02] MEDS ORDERED: Calcium Carbon500 MG PO (12:40)
[2024-01-02] MEDS ORDERED: CIPR500 PO (12:43)
== END 2023-12-28 12:01 | disposition home or self-care (01) | DRG 872 ==
LOC: ER 16:01 → MEDS 16:02
PROVIDERS: Emergency Medicine; Internal Medicine; Physician Assistant; ADMIT Student in an Organized Health Care Education/Training Program
DX: A41.9 Sepsis, unspecified organism (principal); M70.21 Olecranon bursitis, right elbow; J44.9 Chronic obstructive pulmonary disease, unspecified; L30.9 Dermatitis, unspecified; K44.9 Diaphragmatic hernia without obstruction or gangrene; E78.5 Hyperlipidemia, unspecified; K21.9 Gastro-esophageal reflux disease without esophagitis; F15.10 Other stimulant abuse, uncomplicated; Z87.891 Personal history of nicotine dependence; Z11.52 Encounter for screening for COVID-19
CPT/HCPCS: 0241U; 36415; 71046; 73080; 73201; 76882; 80053; 80069; 80202; 81001; 82565; 82947; 83605; 83735; 85025; 85027; 85610; 85651; 86039; 86141; 86430; 87040; 87086; 94640; 94664; 94760; 96365; 96366; 96372; 96376; 99284-25; A9270; C1751; G0378; J1650; J1885; J3370; J7050; J7120; J7512; Q9967

== ENCOUNTER 2023-12-29 12:49 | Inpatient (IN) | payer OTHER ==
[~2023-12-29] VITALS: Ht 152.4 cm; Wt 78.6 kg
[~2023-12-29 12:49] MED LIST changes: +CYMBALTA30 M2 PO; +EPINEPHRIN0.3 MG/0.1 IM
[2023-12-29] MEDS ORDERED: Ondansetron HCl 2 MG / ML 2ML Vial IV ONE (13:05)
[2023-12-29 13:26] LABS: BASOPHILS ABSOLUTE AUTO 0.06 K/mm3 (0.00-0.23); BASOPHILS PERCENT AUTO 0 % (0-2); EOSINOPHILS ABSOLUTE AUTO 0.07 K/mm3 (0.00-0.68); EOSINOPHILS PERCENT AUTO 0 % (0-6); Hematocrit 37.7 % (33.0-51.0); Hemoglobin 11.6 g/dL (11.5-16.0); IMMATURE GRAN ABSOLUTE AUTO 0.15 K/mm3 (0.00-0.10); IMMATURE GRAN PERCENT AUTO 1 % (0-1); LYMPHOCYTES ABSOLUTE AUTO 2.47 K/mm3 (0.84-5.20); LYMPHOCYTES PERCENT AUTO 12 % (21-46); MONOCYTES ABSOLUTE AUTO 1.15 K/mm3 (0.16-1.47); MONOCYTES PERCENT AUTO 6 % (4-13); Mean Corpuscular HGB 23.2 pg (26.0-34.0); Mean Corpuscular HGB Conc 30.8 g/dL (31.5-36.5); Mean Corpuscular Volume 75 fL (80-100); Mean Platelet Volume 8.5 fL (9.1-12.4); NEUTROPHILS ABSOLUTE AUTO 16.14 K/mm3 (1.96-9.15); NEUTROPHILS PERCENT AUTO 81 % (41-73); Platelet Count 748 K/mm3 (150-400); RDW Coefficient Variation 15.9 % (11.7-14.2); RDW Standard Deviation 43.5 fL (35.1-46.3); White Blood Cell Count 20.04 K/mm3 (4.00-11.30)
[2023-12-29] MEDS ORDERED: Ketorolac Tromethamine 15mg Vial IV ONE (13:30)
[2023-12-29 13:46] LABS: Albumin/Globulin Ratio 0.8 (0.8-1.8); Bilirubin, Total 0.4 mg/dL (0.1-1.0); Bun/Creatinine Ratio 27.5 (12.0-20.0); Creatinine, Blood 0.76 mg/dL (0.40-1.00); Globulin, Blood 3.9 g/dL (2.2-4.0); Potassium, Blood 3.5 mmol/L (3.5-5.5); Total Protein, Blood 6.9 g/dL (6.4-8.2)
[2023-12-29 15:32] LABS: Source, Urine Clean Catch
[2023-12-29 15:36] LABS: Appearance, Urine Clear (Clear); Bilirubin, Urine Neg (Neg); Blood, Urine 1+ (Neg); Color, Urine Yellow (P-Yellow); Glucose Qualitative, Urine Neg (Neg); Ketones, Urine Neg (Neg); Leukocyte Esterase, Urine Neg (Neg); Nitrite, Urine Neg (Neg); Protein, Urine 2+ (Neg); Urobilinogen, Urine NORM (Normal)
[2023-12-29 15:44] LABS: Bacteria Few /hpf; Red Blood Cells, Urine 0-2 /hpf (0-2); Squamous Epithelial Cells Few /hpf (Few); White Blood Cells, Urine 0-2 /hpf (0-5)
[2023-12-29] MEDS ORDERED: NS 1,000 ML IV SCH ×2 (16:20→16:55)
[2023-12-29] MEDS ORDERED: HYDROmorphone HCl/Pf 1MG SYR IV ONE (16:20)
[2023-12-29] MEDS ORDERED: HydrALAZINE HCl 20 MG / ML 1ML Vial IV PRN (17:00)
[2023-12-29] MEDS ORDERED: FLU VACC QS2023-24(6MOS UP)/PF 60 MCG/0.5 ML SYRINGE IM ONE (17:00)
[2023-12-29] MEDS ORDERED: FentaNYL Citrate 50 MCG/ML 2 ML Injection IV PRN (17:00)
[2023-12-29] MEDS ORDERED: Zolpidem Tartrate 10 MG Tab PO PRN (17:00)
[2023-12-29] MEDS ORDERED: Metoclopramide HCl 5MG / ML 2ML Vial IV PRN (17:00)
[2023-12-29] MEDS ORDERED: MetroNIDAZOLE 500MG/NS 100 ml 100 ML IV SCH (17:06)
[2023-12-29] MEDS ORDERED: LevoFLOXacin 750 MG/D5W 150ML 150 ML IV SCH (18:00)
[2023-12-29 19:54] VITALS: BP 101/82
[2023-12-29] MEDS ORDERED: OMEP20ER PO ×2 (20:07)
[2023-12-29] MEDS ORDERED: Mometasone/Formoterol MDI 100/5 mcg 13 GM INH SCH (21:00)
[2023-12-29] MEDS ORDERED: Ipratropium/Albuterol SulF 2.5-0.5MG/3 ML Amp INH PRN (21:05)
[2023-12-29] MEDS ORDERED: Albuterol HFA200 ACT/6.7 GM INH INH PRN (21:05)
[2023-12-29] MEDS ORDERED: Calcium Carbonate 500 MG Tab Chew PO PRN (22:10)
[2023-12-29] MEDS ORDERED: HyDROXyzine HCl 10 MG Tab PO PRN (22:10)
--- NOTE | 2023-12-30 03:07 | NUR ---
SHIFT SUMMARY PT ADMITTED FOR DX OF COLITITS. IV FLUIDS INFUSING, IV ANTIBIOTICS, AND PAIN MANAGEMENT WITH PRN FENTANYL 25 MCG WHICH PATIENT STATES DOES RESOLVE SEVERE PAIN. PT HAS FULL DENTRURES, IS NPO AT THIS TIME. PRVIDED ICE CHIPS TO PREVENT COTTON MOUTH. PT ABLE TO MAKE NEEDS KNOWN, AMBULATES INDEPENDENTLY. CALL LIGHT WITHIN REACH, BED LOCKED IN LOW POSITION.
[2023-12-30 03:57] VITALS: BP 120/87
[2023-12-30] MEDS ORDERED: Omeprazole 20 MG CapCR PO SCH (06:00)
[2023-12-30 06:28] LABS: Bun/Creatinine Ratio 31.2 (12.0-20.0); Calcium, Blood 7.9 mg/dL (8.5-10.1); Creatinine, Blood 0.7 mg/dL (0.40-1.00); Potassium, Blood 3.7 mmol/L (3.5-5.5)
[2023-12-30 07:32] VITALS: BP 104/69
[2023-12-30] MEDS ORDERED: Enoxaparin 40 MG/0.4 ML SYR SC SCH (09:00)
--- NOTE | 2023-12-30 16:32 | NUR ---
SHIFT SUMMARY: PT IS A 58 YEAR OLD FEMALE HERE FOR SEPSIS SECONDARY TO COLITIS. SHE IS ALERT AND ORIENTEDX4 AND INDEPENDENT; SHE WILL CALL FOR LINE ASSISTANCE TO USE THE RESTROOM. SHE REQUIRES 3 L OF NASAL CANNUAL OXYGEN TO MAINTAIN OXYGEN SATURATION GREATER THAN 90% WHILE SLEEPING. PATIENT FEEL ASLEEP DURING THE SHIFT WITHOUT OXYGEN AND HER O2% DROPPED TO 86%. OXYGEN SATURATION LEVEL CORRECTED ONCE SUPPLEMENTAL OXYGEN APPLIED. PATIENT STATES THAT THIS IS NORMAL. PAIN AND NAUSEA BEING TREATED NEEDED PER EMAR AND NORMAL SALINE INFUSION AT 75ML/HR. SHE IS IN BED CURRENTLY, SLEEPING; EVEN AND UNLABORED RESPIRATIONS, CALL LIGHT WITHIN REACH, NO SIGNS OR SYMPTOMS OF DISTRESS. PLAN OF CARE ONGOING.
[2023-12-30 19:39] VITALS: BP 119/80
[2023-12-30] MEDS ORDERED: Melatonin 5 MG Tablet PO PRN (21:50)
[2023-12-31 04:04] VITALS: BP 132/77
[2023-12-31 05:53] LABS: Hemoglobin 10.3 g/dL (11.5-16.0); Mean Corpuscular HGB 23.5 pg (26.0-34.0); Mean Corpuscular HGB Conc 30.3 g/dL (31.5-36.5); Mean Corpuscular Volume 77 fL (80-100); Mean Platelet Volume 8.9 fL (9.1-12.4); Platelet Count 631 K/mm3 (150-400); RDW Standard Deviation 44.8 fL (35.1-46.3); Red Blood Cell Count 4.39 M/mm3 (3.80-5.20); White Blood Cell Count 12.81 K/mm3 (4.00-11.30)
--- NOTE | 2023-12-31 06:21 | NUR ---
Shift Summary Pt AOx4. She had a painful abdomen this shift, medicated per emar. Also medicated x1 for nausea. She slept well t/o most of the night. Pt on 3L O2 NC during sleep so that she doesn't desaturate. No acute changes.
[2023-12-31 07:02] LABS: Bun/Creatinine Ratio 16.6 (12.0-20.0); Calcium, Blood 8.1 mg/dL (8.5-10.1); Creatinine, Blood 0.72 mg/dL (0.40-1.00)
[2023-12-31 07:09] VITALS: BP 114/82
[2023-12-31 08:29] LABS: Percent Saturation 8.1 % (15.0-50.0)
[2023-12-31] MEDS ORDERED: OxyCODONE HCL 5 MG TAB PO PRN (10:20)
[2023-12-31] MEDS ORDERED: Iron Dextran 25 MG in NS 50 ML IV ONE (13:45)
[2023-12-31] MEDS ORDERED: Iron Dextran 975 MG in NS 250 ML IV ONE (15:00)
[2023-12-31 15:13] VITALS: BP 120/76
--- NOTE | 2023-12-31 16:36 | NUR ---
SHIFT SUMMARY; PATIENT BEGAN SHIFT REQUESTING FENTANYL Q 2 HOURS. IS NOTIFIED AND CHANGE OF PAIN MED OBTAINED. PATIENT NOW GETTING PO OXYCODONE TWO 5MG TABLETS PO Q6 HOURS PRN PAIN. PATIENT EXPRESSES MUCH BETTER PAIN RELIEF. SHE ALSO HAD IRON INFUSION ORDERED AND RECEIVED THIS AFTERNOON IV. SHE HAS PLEASANT AFFECT AND IS COOPERATIVE WITH CARE. REMAINS ON A FULL LIQUID DIET. NO DC PLANS AT THIS TIME. WILL REMAIN AVAILABLE FOR THIS PATIENT FOR ANY WANTS OR NEEDS THAT MAY ARISE TILL NOC SHIFT REPORT AND HAND OFF.
[2023-12-31 19:21] VITALS: BP 115/70
[2024-01-01 04:20] VITALS: BP 93/58
--- NOTE | 2024-01-01 04:22 | NUR ---
SHIFT SUMMARY PT A&OX4 AND ANSWERS QUESTIONS APPROPRIATELY. PT RECEIVED IV ANTIBIOTICS THROUGHOUT THE NIGHT AND WAS MEDICATED FOR PAIN NEEDED PER EMAR. PT AMBULATED INDEPENDENTY TO THE BR AND WAS CONTINENT. PT SLEPT THROUGH MOST OF SHIFT WITH EYES CLOSED, RESPIRATIONS EVEN AND UNLABORED. NO COMPLAINTS OF CP OR SOB DURING SHIFT. NO ACUTE EVENTS AT THIS TIME. PT LEFT IN A POSITION OF SAFETY WITH APPROPRIATE FALL PRECAUTIONS IN PLACE AND CALL LIGHT IN REACH.
[2024-01-01 05:29] LABS: BASOPHILS ABSOLUTE AUTO 0.04 K/mm3 (0.00-0.23); BASOPHILS PERCENT AUTO 1 % (0-2); EOSINOPHILS ABSOLUTE AUTO 0.04 K/mm3 (0.00-0.68); EOSINOPHILS PERCENT AUTO 1 % (0-6); Hematocrit 29.4 % (33.0-51.0); IMMATURE GRAN ABSOLUTE AUTO 0.13 K/mm3 (0.00-0.10); IMMATURE GRAN PERCENT AUTO 2 % (0-1); LYMPHOCYTES ABSOLUTE AUTO 1.93 K/mm3 (0.84-5.20); LYMPHOCYTES PERCENT AUTO 23 % (21-46); MONOCYTES ABSOLUTE AUTO 0.93 K/mm3 (0.16-1.47); MONOCYTES PERCENT AUTO 11 % (4-13); Mean Corpuscular HGB 23.6 pg (26.0-34.0); Mean Corpuscular HGB Conc 30.6 g/dL (31.5-36.5); Mean Corpuscular Volume 77 fL (80-100); Mean Platelet Volume 8.7 fL (9.1-12.4); NEUTROPHILS ABSOLUTE AUTO 5.31 K/mm3 (1.96-9.15); NEUTROPHILS PERCENT AUTO 63 % (41-73); Platelet Count 541 K/mm3 (150-400); RDW Coefficient Variation 16.1 % (11.7-14.2); RDW Standard Deviation 45.4 fL (35.1-46.3); Red Blood Cell Count 3.81 M/mm3 (3.80-5.20); White Blood Cell Count 8.38 K/mm3 (4.00-11.30)
[2024-01-01 06:06] LABS: Percent Saturation 122.9 % (15.0-50.0)
[2024-01-01 06:17] LABS: Albumin, Blood 2.3 g/dL (3.4-5.0); Albumin/Globulin Ratio 0.7 (0.8-1.8); Bilirubin, Total 0.3 mg/dL (0.1-1.0); Bun/Creatinine Ratio 9.2 (12.0-20.0); Creatinine, Blood 0.76 mg/dL (0.40-1.00); Globulin, Blood 3.1 g/dL (2.2-4.0); Potassium, Blood 3.6 mmol/L (3.5-5.5); Total Protein, Blood 5.4 g/dL (6.4-8.2)
[2024-01-01 07:52] VITALS: BP 112/75
[2024-01-01 15:30] VITALS: BP 118/71
[2024-01-01] MEDS ORDERED: LevoFLOXacin 500 MG Tab PO SCH (18:00)
[2024-01-01 19:15] VITALS: BP 110/65
--- NOTE | 2024-01-02 04:33 | NUR ---
1900: ASSUMED CARE OF PT, BEDSIDE REPORT RECEIVED FROM DAY SHIFT RN. PT IS A/O X4 SITTING UP IN BED. REPORTS PAIN AND NAUSEA HAVE BEEN IMPROVING. PRN PAIN MEDICATION PROVIDED DURING THE SHIFT. PT DENIES NAUSEA, TOLERATED PEA AND TOMOTO SOUP. ABX PROVIDED ORDERED, VSS. NO ACUTE EVENTS DURING THE SHIFT. PT IS ANTICIPATING GOING HOME POSSIBLY [place]. SAFETY MEASURES TAKEN, ALL NEEDS ADDRESSED.
[2024-01-02 07:29] VITALS: BP 122/80
[2024-01-02] MEDS ORDERED: Calcium Carbon500 MG PO ×2 (12:40)
[2024-01-02] MEDS ORDERED: CIPR500 PO ×2 (12:43)
--- NOTE | 2024-01-02 13:02 | NUR ---
DISCHARGE HOME IV REMOVED WITH CANNULA INTYACT. PREAAURE/COBAN APPLIED. NO BLEEDING NOTED. PT UP AD PRABHJOT. ORDERS FAXED TO [facility] PER REQUEST. PT ALREADY HAS A F/U APPOINTMENT WITH HER PCP PRIOR TO DISCHARGE. CARE ONGOING.
== END 2024-01-02 13:02 | disposition home or self-care (01) | DRG 872 ==
LOC: ER 12:49 → ERHOLD 16:55 → MEDS 19:44
PROVIDERS: Internal Medicine; Student in an Organized Health Care Education/Training Program; ADMIT Internal Medicine
DX: A41.9 Sepsis, unspecified organism (principal); K52.9 Noninfective gastroenteritis and colitis, unspecified; Z23 Encounter for immunization; K44.9 Diaphragmatic hernia without obstruction or gangrene; E78.5 Hyperlipidemia, unspecified; K21.9 Gastro-esophageal reflux disease without esophagitis; F15.10 Other stimulant abuse, uncomplicated; M70.21 Olecranon bursitis, right elbow; D50.9 Iron deficiency anemia, unspecified; J44.9 Chronic obstructive pulmonary disease, unspecified; R21 Rash and other nonspecific skin eruption; Z96.652 Presence of left artificial knee joint; Z90.710 Acquired absence of both cervix and uterus; Z98.890 Other specified postprocedural states; Z87.891 Personal history of nicotine dependence; Z88.1 Allergy status to other antibiotic agents; Z79.899 Other long term (current) drug therapy
CPT/HCPCS: 36415; 71046; 74177; 80048; 80053; 81001; 82728; 83540; 83550; 83605; 84484; 85025; 85027; 87040; 90471; 93005; 93010; 94640; 94664; 94762; 96361; 96365-59; 96366; 96375; 99285-25; A9270; J1170; J1650; J1750; J1885; J1956; J2405; J2765; J3010; J7030; J7050; Q2036; Q9967

== ENCOUNTER 2024-01-06 15:54 | Emergency (ER) | payer OTHER ==
[~2024-01-06] VITALS: Ht 152.4 cm; Wt 72.6 kg
[~2024-01-06 15:54] MED LIST changes: +CIPR500 PO
[2024-01-06 16:51] LABS: BASOPHILS ABSOLUTE AUTO 0.04 K/mm3 (0.00-0.23); BASOPHILS PERCENT AUTO 0 % (0-2); EOSINOPHILS PERCENT AUTO 0 % (0-6); Hematocrit 35.4 % (33.0-51.0); Hemoglobin 10.8 g/dL (11.5-16.0); IMMATURE GRAN ABSOLUTE AUTO 0.06 K/mm3 (0.00-0.10); IMMATURE GRAN PERCENT AUTO 0 % (0-1); LYMPHOCYTES ABSOLUTE AUTO 0.84 K/mm3 (0.84-5.20); LYMPHOCYTES PERCENT AUTO 6 % (21-46); MONOCYTES PERCENT AUTO 4 % (4-13); Mean Corpuscular HGB 24.1 pg (26.0-34.0); Mean Corpuscular HGB Conc 30.5 g/dL (31.5-36.5); Mean Corpuscular Volume 79 fL (80-100); Mean Platelet Volume 8.8 fL (9.1-12.4); NEUTROPHILS ABSOLUTE AUTO 13.03 K/mm3 (1.96-9.15); NEUTROPHILS PERCENT AUTO 90 % (41-73); Platelet Count 735 K/mm3 (150-400); RDW Coefficient Variation 18.5 % (11.7-14.2); RDW Standard Deviation 49.1 fL (35.1-46.3); Red Blood Cell Count 4.48 M/mm3 (3.80-5.20); White Blood Cell Count 14.47 K/mm3 (4.00-11.30)
[2024-01-06 17:09] LABS: Source, Urine Clean Catch
[2024-01-06 17:18] LABS: Appearance, Urine Clear (Clear); Bilirubin, Urine Neg (Neg); Blood, Urine 1+ (Neg); Color, Urine Yellow (P-Yellow); Glucose Qualitative, Urine Neg (Neg); Ketones, Urine Neg (Neg); Leukocyte Esterase, Urine Neg (Neg); Nitrite, Urine Neg (Neg); Protein, Urine 1+ (Neg); Specific Gravity, Urine 1.015 (1.003-1.022); Urobilinogen, Urine NORM (Normal)
[2024-01-06 17:24] LABS: Albumin, Blood 3.2 g/dL (3.4-5.0); Albumin/Globulin Ratio 0.8 (0.8-1.8); Bilirubin, Total 0.3 mg/dL (0.1-1.0); Bun/Creatinine Ratio 17.6 (12.0-20.0); Calcium, Blood 8.8 mg/dL (8.5-10.1); Creatinine, Blood 0.85 mg/dL (0.40-1.00); Potassium, Blood 4.4 mmol/L (3.5-5.5); Total Protein, Blood 7.2 g/dL (6.4-8.2)
[2024-01-06 17:29] LABS: Bacteria Few /hpf; Hyaline Casts 0-2 /lpf (0-2); Squamous Epithelial Cells Rare /hpf (Few); Transitional Epithelial Cells Rare /hpf (0-Rare)
[2024-01-06 17:42] VITALS: BP 178/90
== END 2024-01-06 18:00 | disposition home or self-care (01) ==
LOC: ER 15:54
PROVIDERS: Physician Assistant
DX: L30.9 Dermatitis, unspecified (principal); J44.9 Chronic obstructive pulmonary disease, unspecified; E78.5 Hyperlipidemia, unspecified; K21.9 Gastro-esophageal reflux disease without esophagitis; Z88.1 Allergy status to other antibiotic agents; Z79.899 Other long term (current) drug therapy; Z79.51 Long term (current) use of inhaled steroids; Z87.891 Personal history of nicotine dependence
CPT/HCPCS: 80053; 81001; 85025; 99283

== ENCOUNTER 2024-09-29 08:29 | Day surgery (SDC) | payer OTHER ==
[~2024-09-29] VITALS: Ht 152.4 cm; Wt 79.6 kg
[~2024-09-29 08:29] MED LIST changes: +Balanced Salt Epinephrine Irrigation Solution 500 mL IR SCH; +Lidocaine HCl/Pf 1% 5 ML VIAL XX SCH; +Moxifloxacin HCL 0.5 MG/0.1 ML 0.4MLSYR LEFTEYE SCH; +PHENYLEPHRINE\\TROPICAMIDE\\TETRACAINE OPHTHALMIC DILATING SOLN LEFTEYE PRN; +Povidone-Iodine 450 DROP/30 ML Solution LEFTEYE SCH; +Povidone-Iodine 450 DROP/30 ML Solution ONE; +Tetracaine HCl/Pf 0.5% Opth Soln 4 ml ONE
--- NOTE | 2024-09-29 08:56 | NUR ---
09/29/24 0856 Janna Cox CALL LIGHT WITHIN REACH. TETRACAINE IN LEFT EYE AT 0851 AND PLEDGETT IN AT 0837
[2024-09-29] MEDS ORDERED: Midazolam HCl 1MG / ML 2ML Vial ONE (09:24)
--- NOTE | 2024-09-29 09:41 | NUR ---
09/29/24 0941 Mariana Roe IV IN LEFT AC NOT WORKING IN OR. TAKEN OUT. NEW IV STARTED IN LEFT WRIST BY ANESTHESIA. PT SAID IT WAS PAINFUL BUT SHE STATES SHE TOLERATED IT. PT COMFORTED WITH TALKING AND SHOULDER PAT.
[2024-09-29 10:36] VITALS: BP 134/84
== END 2024-09-29 10:09 | disposition home or self-care (01) ==
LOC: ORSCSDS 08:29
PROVIDERS: Student in an Organized Health Care Education/Training Program
PROC: 08RK3JZ Replacement of Left Lens with Synthetic Substitute, Percutaneous Approach (ICD-10-PCS; principal; 2024-09-29 09:30)
DX: H25.813 Combined forms of age-related cataract, bilateral (principal); J44.9 Chronic obstructive pulmonary disease, unspecified; K21.9 Gastro-esophageal reflux disease without esophagitis; E78.5 Hyperlipidemia, unspecified; Z87.891 Personal history of nicotine dependence; Z79.899 Other long term (current) drug therapy
CPT/HCPCS: J2250; V2632

== ENCOUNTER 2024-10-06 08:11 | Day surgery (SDC) | payer OTHER ==
[~2024-10-06] VITALS: Ht 152.4 cm; Wt 79.2 kg
[~2024-10-06 08:11] MED LIST changes: -Moxifloxacin HCL 0.5 MG/0.1 ML 0.4MLSYR LEFTEYE SCH; +Moxifloxacin HCL 0.5 MG/0.1 ML 0.4MLSYR RIGHTEYE SCH; -PHENYLEPHRINE\\TROPICAMIDE\\TETRACAINE OPHTHALMIC DILATING SOLN LEFTEYE PRN; +PHENYLEPHRINE\\TROPICAMIDE\\TETRACAINE OPHTHALMIC DILATING SOLN RIGHTEYE PRN; -Povidone-Iodine 450 DROP/30 ML Solution LEFTEYE SCH; -Povidone-Iodine 450 DROP/30 ML Solution ONE; +Povidone-Iodine 450 DROP/30 ML Solution RIGHTEYE SCH; -Tetracaine HCl/Pf 0.5% Opth Soln 4 ml ONE
--- NOTE | 2024-10-06 08:38 | NUR ---
10/06/24 0838 Emily Nash RED RASH SCATTERED TO ARMS, PATIENT REPORTED SHE HAS VASCULOTITIS AND THIS HAPPENS REGULARLY. RASH TO UPPER LEFT ARM FEELS SLIGHTLY WARMER THAN SURROUNDING SKIN UPON ASSESSMENT.
[2024-10-06] MEDS ORDERED: IBUP600 (08:42)
[2024-10-06] MEDS ORDERED: Midazolam HCl 1MG / ML 2ML Vial ONE (08:51)
[2024-10-06] MEDS ORDERED: FentaNYL Citrate 50 MCG/ML 2 ML Injection ONE (08:51)
[2024-10-06] MEDS ORDERED: Tetracaine HCl 0.5% Opth Soln 15 ml RIGHTEYE ONE (09:11)
[2024-10-06 09:35] VITALS: BP 105/77
== END 2024-10-06 10:00 | disposition home or self-care (01) ==
LOC: ORSCSDS 08:11
PROVIDERS: Student in an Organized Health Care Education/Training Program
PROC: 08RJ3JZ Replacement of Right Lens with Synthetic Substitute, Percutaneous Approach (ICD-10-PCS; principal; 2024-10-06 09:30)
DX: E11.36 Type 2 diabetes mellitus with diabetic cataract (principal); H25.811 Combined forms of age-related cataract, right eye; Z96.1 Presence of intraocular lens; E78.5 Hyperlipidemia, unspecified; J44.9 Chronic obstructive pulmonary disease, unspecified; F41.1 Generalized anxiety disorder; K21.9 Gastro-esophageal reflux disease without esophagitis; E66.9 Obesity, unspecified; Z68.34 Body mass index [BMI] 34.0-34.9, adult; Z87.891 Personal history of nicotine dependence; Z99.81 Dependence on supplemental oxygen; Z79.899 Other long term (current) drug therapy
CPT/HCPCS: 82947; J2250; J3010; V2632

== ENCOUNTER 2024-11-06 06:04 | Inpatient (IN) | payer OTHER ==
[2024-11-06] VITALS (24 sets, daily range): BP systolic 99–149; BP diastolic 68–94
[~2024-11-06] VITALS: Ht 152.4 cm; Wt 80.9 kg
[~2024-11-06 06:04] MED LIST changes: -Balanced Salt Epinephrine Irrigation Solution 500 mL IR SCH; +LORA10ER PO; -Lidocaine HCl/Pf 1% 5 ML VIAL XX SCH; -Moxifloxacin HCL 0.5 MG/0.1 ML 0.4MLSYR RIGHTEYE SCH; -PHENYLEPHRINE\\TROPICAMIDE\\TETRACAINE OPHTHALMIC DILATING SOLN RIGHTEYE PRN; -Povidone-Iodine 450 DROP/30 ML Solution RIGHTEYE SCH; +Pulmicort Flex90 MCG INH; +TRIDERM28.4 GM TOP
[2024-11-06] MEDS ORDERED: Acetaminophen 500 MG Tab PO SCH ×2 (06:20→16:00)
[2024-11-06] MEDS ORDERED: Chlorhexidine Mouth Care 15 ML UDC MT SCH (06:20)
[2024-11-06] MEDS ORDERED: Tranexamic Acid 1,000 MG in NS 100 ML IV SCH (06:20)
[2024-11-06] MEDS ORDERED: OxyCODONE HCL 10 MG TABCR PO SCH (06:20)
[2024-11-06] MEDS ORDERED: CeFAZolin Sodium 2,000 MG in NS 100 ML IV SCH (06:20)
[2024-11-06] MEDS ORDERED: Lactated Ringer's 1,000 ML IV SCH ×2 (06:20→14:40)
[2024-11-06] MEDS ORDERED: CeFAZolin Sodium 2,000 MG VIAL ONE (06:59)
--- NOTE | 2024-11-06 07:13 | NUR ---
History, Chart, Medications and Allergies reviewed before start of procedure. Pre-Op teaching done. Pt verbalizes understanding. Patient confirms NPO status and agrees with scheduled surgery. PT REQUESTS TO LEAVE UNDERWEAR ON DURING PROCEDURE. DENTURE CUP GIVEN TO TRUCK GUARD TO HAVE DENTURES REMOVED ONCE BACK IN OR. PT MRSA RESULTS SHOWED POSITIVE. PT STATES SHE DID NOT DO 5 DAYS OF SHOWERS AND OINTMENT. DR. COLEMAN NOTIFIED OF THIS.
[2024-11-06] MEDS ORDERED: Bupivacaine HCl 2.5 MG/ML 10ML P/F Injection ONE ×2 (07:16→07:18)
[2024-11-06] MEDS ORDERED: Midazolam HCl 1MG / ML 2ML Vial ONE (07:18)
[2024-11-06] MEDS ORDERED: FentaNYL Citrate 50 MCG/ML 2 ML Injection ONE ×2 (07:19→11:40)
[2024-11-06] MEDS ORDERED: propofoL 20 ML IV ONE (07:19)
[2024-11-06] MEDS ORDERED: Rocuronium Bromide 10 MG/ML 5ML Injection IV ONE (07:22)
[2024-11-06] MEDS ORDERED: Ondansetron HCl 2 MG / ML 2ML Vial ONE (07:22)
[2024-11-06] MEDS ORDERED: Lidocaine HCl 2% 20 ML MDV ONE (07:22)
[2024-11-06] MEDS ORDERED: Dexamethasone Sod Phos 10 MG/ML 1ML VIAL ONE (07:22)
[2024-11-06] MEDS ORDERED: Mupirocin 2% Ointment 22 GM TOP SCH (07:35)
--- NOTE | 2024-11-06 07:39 | NUR ---
R SHOULDER BLOCK TO BE COMPLETED BY DR. JACKSON. TIME OUT DONE AT [address] JACKSON. PT PLACED ON 2L NC. PROCEDURE START AT 0818. PT O2 SAT 87%. INCREASED O2 TO 4L NC. O2 SATS NOW >92%. PROCEUDRE END AT 0824. PT TOLERATED PROCEDURE WELL.
[2024-11-06] MEDS ORDERED: Clindamycin 900mg in D5W 50ML 50 ML IV SCH ×2 (07:40→15:45)
[2024-11-06] MEDS ORDERED: FentaNYL Citrate 50 MCG/ML 2 ML Injection IV PRN ×2 (09:10→09:15)
[2024-11-06] MEDS ORDERED: HYDROmorphone HCl/Pf 1MG SYR IV PRN ×2 (09:10→14:35)
[2024-11-06] MEDS ORDERED: Ondansetron HCl 2 MG / ML 2ML Vial IV PRN ×2 (09:15→14:25)
[2024-11-06] MEDS ORDERED: Metoclopramide HCl 5MG / ML 2ML Vial IV PRN ×2 (09:15→14:35)
[2024-11-06] MEDS ORDERED: Albuterol 2.5 MG/3 ML VIAL INH PRN (09:15)
[2024-11-06] MEDS ORDERED: Phenylephrine HCl 100 MCG/ML-NS 10MLSYR (1MG/10ML) ONE (09:28)
[2024-11-06] MEDS ORDERED: Albuterol 2.5 MG/3 ML VIAL ONE (11:05)
[2024-11-06] MEDS ORDERED: OxyCODONE HCL 5 MG TAB PO PRN ×3 (12:05→14:30)
--- NOTE | 2024-11-06 12:28 | NUR ---
ARRIVAL NOTE PT ARRIVES FROM PACU SLEEPING BUT AROUSABLE. PT C/O SOME DISCOMFORT IN R SHOULDER AND HAS GRIMACE ON FACE. WHEN PT IS NOT SPEAKING, SHE QUICKLY GOES BACK TO SLEEP. HOB ELEVATED AND CONT PULSE OX IN PLACE. ROOM AIR TRIAL BIOX IN HIGH 80'S. PT PLACED BACK ON NC AT 2L/MIN AND SATS >92%. PT HAS CLEAR DRESSING OVER INCISION SITE ON ANTERIOR R SHOULDER AND IT IS CLEAN, DRY, AND INTACT. SHOULDER IMMOBILIZER ALSO IN PLACE. PT ORIENTED TO ROOM, SIDE RAILS X3 UP, AND CALL LIGHT PROVIDED.
[2024-11-06] MEDS ORDERED: Prochlorperazine Edisylate 10 mg Vial IV PRN (14:30)
[2024-11-06] MEDS ORDERED: Bisacodyl 10 MG Supp PR PRN (14:30)
[2024-11-06] MEDS ORDERED: Promethazine HCl 25 MG Tab PO PRN (14:30)
[2024-11-06] MEDS ORDERED: DiphenhydrAMINE HCL 25 MG Cap PO PRN (14:35)
[2024-11-06] MEDS ORDERED: FLU VACC TS2024-25(6MOS UP)/PF 45 MCG/0.5 ML SYRINGE IM SCH (14:35)
[2024-11-06] MEDS ORDERED: Magnesium Hydroxide Conc 10 ML UDC PO PRN (14:35)
[2024-11-06] MEDS ORDERED: Albuterol HFA200 ACT/6.7 GM INH INH PRN (14:45)
[2024-11-06] MEDS ORDERED: Ipratropium/Albuterol SulF 2.5-0.5MG/3 ML Amp INH PRN (14:50)
[2024-11-06] MEDS ORDERED: Ketorolac Tromethamine 15mg Vial IV SCH (18:00)
--- NOTE | 2024-11-06 18:00 | NUR ---
SHIFT SUMMARY PT POD0 R REVERSE TOTAL SHOULDER. INITIAL PLAN WITH PT WAS TO D/C FROM PACU, BUT DUE TO SLEEPINESS AND O2 REQUIREMENTS, WAS PLACED IN EXTENDED RECOVERY. PT HAS BEEN TITRATED OFF OF SUPPLEMENTAL O2. PT WORKED WITH OCCUPATIONAL THERAPY TODAY BUT NOT PHYSICAL THERAPY. PT HAS VOIDED, SADE PO INTAKE WELL, AND PAIN MANAGED WITH PRN PAIN MEDICATION. PT CURRENTLY SITTING IN CHAIR AND HAS CALL LIGHT IN REACH. R SHOULDER REMAINS IN SHOULDER IMMOBILIZER. CMS INTACT.
[2024-11-06] MEDS ORDERED: Docusate Sodium 100 MG Cap PO SCH (21:00)
[2024-11-06] MEDS ORDERED: Mupirocin 2% Ointment 22 GM XX SCH (21:00)
[2024-11-06] MEDS ORDERED: NS 250 ML IV PRN (23:55)
[2024-11-07 03:56] VITALS: BP 117/77
--- NOTE | 2024-11-07 04:53 | NUR ---
SHIFT SUMMARY PT ALERT ORIENTED X4 ABLE TO VERBALIZE NEEDS AND USES THE CALL LIGHT. C/O RT SHOULDER PAIN MEDICATED WITH ROUTINE TYLENOL, TORADOL AND PRN OXY 5MG WITH GOOD PAIN RELIEF. CONTINUES WITH A IMMOBILIZER ON HER RT ARM. SHES S/P RT REVERSE TOTAL SHOULDER ARTHROPLASTY. SHE CONTINUES TO BE NWB TO HER RT ARM. HAD 2 DOSES OF CLINDAMYCIN FOR PROPHYLACTIC. INCISION TO RT ARM LOOKS GOOD WITH NO DRAINAGE. CONTINUES WITH ICE TO SHOULDER. REMAINS ON 3L VIA NC SATTING AT 97%. SHE USES 2-3L OF O2 PRN AT HOME. AMBULATED TO THE BATHROOM WITH 1 PERSON SBA. WAS INCONTINENT IN HER BRIEF. RESTING IN BED AT THIS TIME WITH CALL LIGHT IN REACH
[2024-11-07] MEDS ORDERED: Omeprazole 20 MG CapCR PO SCH (06:00)
[2024-11-07 07:17] VITALS: BP 104/61
[2024-11-07] MEDS ORDERED: OXAYDO5 M4 PO (08:01)
[2024-11-07] MEDS ORDERED: ACET500 PO (08:01)
[2024-11-07] MEDS ORDERED: MUPIROCIN1 G1 TOP (08:01)
--- NOTE | 2024-11-07 11:06 | NUR ---
MORNING NOTE THIS RN ASSUMED CARE AT APPROX 0715. PATIENT ALERT AND ORIENTED X4. COMMUNICATES NEEDS EFFECTIVELY. VSS. ON HOME 2L VIA NC, SATs >90%. POD 1 R TSA - PRINEO DX C/D/I. MILD BRUISING NOTED AROUND SITE. IMMOBILIZER IN PLACE. REPORTING 8/10 PAIN - MEDICATED PER EMAR WITH REPORTED RELIEF. COOLING DEVICE IN PLACE. WORKED WITH PHYSICAL THERAPY, AWAITING OCCUPATIONAL THERAPY EVAL PRIOR TO DC. VOIDING. TOLERATING PO INTAKE. SALINE LOCKED. CALL LIGHT IN REACH
--- NOTE | 2024-11-07 14:01 | NUR ---
DISCHARGE NOTE NO ACUTE CHANGES SINCE PREVIOUS DOCUMENTATION. PATIENT CLEARED BY THERAPY FOR DC HOME. VSS. POD 1 R SIXTO - LUIS ANGEL DX C/D/I. PAIN TOLERABLE WITH PRESCRIBED THERAPY. IMMOBILIZER IN PLACE. TOLERATING PO INTAKE. VOIDING. DC EDUCATION PROVIDED - PATIENT STATES UNDERSTANDING. IV REMOVED. PATIENT TRANSFERRED OFF UNIT VIA WHEELCHAIR AT APPROX 1400 TO PERSONAL VEHICLE. PERSONAL BELONGINGS, INCLUDING COOLING DEVICE, WITH PATIENT.
== END 2024-11-07 14:01 | disposition home or self-care (01) | DRG 483 ==
LOC: ORSCMMR 06:04 → ORSCSDS 07:30 → ORSCMMR 08:00 → SURS 12:22 → ORSCMMR 14:23 → SURS 14:23 → ORSCSDS 12-21 07:30
PROVIDERS: ADMIT Orthopaedic Surgery
PROC: 0RRJ00Z Replacement of Right Shoulder Joint with Reverse Ball and Socket Synthetic Substitute, Open Approach (ICD-10-PCS; principal; 2024-11-06 08:00)
DX: M19.011 Primary osteoarthritis, right shoulder (principal); J44.9 Chronic obstructive pulmonary disease, unspecified; E11.9 Type 2 diabetes mellitus without complications; F41.1 Generalized anxiety disorder; K44.9 Diaphragmatic hernia without obstruction or gangrene; K21.9 Gastro-esophageal reflux disease without esophagitis; E78.5 Hyperlipidemia, unspecified; Z85.42 Personal history of malignant neoplasm of other parts of uterus; Z87.891 Personal history of nicotine dependence; Z87.01 Personal history of pneumonia (recurrent); Z98.41 Cataract extraction status, right eye; Z90.710 Acquired absence of both cervix and uterus; Z96.652 Presence of left artificial knee joint; Z98.890 Other specified postprocedural states; Z79.899 Other long term (current) drug therapy
CPT/HCPCS: 73030; 94760; 97110; 97161; 97165; 97530; 97535; A9270; C1713; C1776; J0690; J1100; J1885; J2250; J2371; J2405; J2704; J3010; J7120

== ENCOUNTER 2025-01-15 05:21 | Inpatient (IN) | payer OTHER ==
[~2025-01-15] VITALS: Ht 152.4 cm; Wt 81.6 kg
[~2025-01-15 05:21] MED LIST changes: +MUPIROCIN1 G1 TOP; +OXAYDO5 M4 PO
[2025-01-15 07:01] LABS: Albumin, Blood 3.6 g/dL (3.4-5.0); Albumin/Globulin Ratio 0.8 (0.8-1.8); Bilirubin, Total 0.3 mg/dL (0.1-1.0); Bun/Creatinine Ratio 22.6 (12.0-20.0); Calcium, Blood 9.8 mg/dL (8.5-10.1); Creatinine, Blood 0.53 mg/dL (0.40-1.00); Globulin, Blood 4.5 g/dL (2.2-4.0); Potassium, Blood 3.2 mmol/L (3.5-5.5); Total Protein, Blood 8.1 g/dL (6.4-8.2)
[2025-01-15 07:05] LABS: BASOPHILS ABSOLUTE AUTO 0.05 K/mm3 (0.00-0.23); BASOPHILS PERCENT AUTO 1 % (0-2); EOSINOPHILS ABSOLUTE AUTO 0.01 K/mm3 (0.00-0.68); EOSINOPHILS PERCENT AUTO 0 % (0-6); Hemoglobin 12.6 g/dL (11.5-16.0); IMMATURE GRAN ABSOLUTE AUTO 0.07 K/mm3 (0.00-0.10); IMMATURE GRAN PERCENT AUTO 1 % (0-1); LYMPHOCYTES ABSOLUTE AUTO 1.11 K/mm3 (0.84-5.20); LYMPHOCYTES PERCENT AUTO 11 % (21-46); MONOCYTES ABSOLUTE AUTO 0.93 K/mm3 (0.16-1.47); MONOCYTES PERCENT AUTO 9 % (4-13); Mean Corpuscular HGB 26.1 pg (26.0-34.0); Mean Corpuscular HGB Conc 32.3 g/dL (31.5-36.5); Mean Corpuscular Volume 81 fL (80-100); NEUTROPHILS ABSOLUTE AUTO 8.07 K/mm3 (1.96-9.15); NEUTROPHILS PERCENT AUTO 79 % (41-73); RDW Coefficient Variation 13.9 % (11.7-14.2); RDW Standard Deviation 41.3 fL (35.1-46.3); Red Blood Cell Count 4.82 M/mm3 (3.80-5.20); White Blood Cell Count 10.24 K/mm3 (4.00-11.30)
[2025-01-15 07:25] LABS: Platelet Count 468 K/mm3 (150-400)
[2025-01-15] MEDS ORDERED: LORazepam 2 MG/ML 1ML Injection IV ONE (07:35)
[2025-01-15] MEDS ORDERED: Albuterol 2.5 MG/3 ML VIAL INH SCH (07:35)
[2025-01-15] MEDS ORDERED: MethylPREDNISolone Sod Succ 125 MG Vial IV ONE (07:35)
[2025-01-15] MEDS ORDERED: Ipratropium Bromide INH 0.02% 0.5 mg/2.5ML Vial INH SCH (08:00)
[2025-01-15 08:05] LABS: Base Excess Venous 4.4 mmol/L; Bicarbonate Venous 27.6 mmol/L (24.0-30.0); PCO2 Venous 45.8 mmHg (38-42); pH Blood Venous 7.41 (7.34-7.37)
[2025-01-15] MEDS ORDERED: Ipratropium/Albuterol SulF 2.5-0.5MG/3 ML Amp INH SCH (11:20)
[2025-01-15] MEDS ORDERED: NS 1,000 ML IV SCH (11:25)
[2025-01-15] MEDS ORDERED: Calcium Carbonate 500 MG Tab Chew PO PRN (11:25)
[2025-01-15] MEDS ORDERED: Acetaminophen 500 MG Tab PO PRN (11:25)
[2025-01-15] MEDS ORDERED: FLU VACC TS2024-25(6MOS UP)/PF 45 MCG/0.5 ML SYRINGE IM SCH (11:30)
[2025-01-15] MEDS ORDERED: Prochlorperazine Edisylate 10 mg Vial IV PRN (11:30)
[2025-01-15] MEDS ORDERED: Azithromycin 500 MG in NS 250 ML IV SCH (11:30)
[2025-01-15] MEDS ORDERED: BusPIRone HCl 5 MG Tab PO SCH (14:00)
[2025-01-15] MEDS ORDERED: Potassium Chl 20MEQ/Water100ML 100 ML IV ONE (15:35)
[2025-01-15 15:49] VITALS: BP 117/81
[2025-01-15] MEDS ORDERED: MethylPREDNISolone Sod Succ 125 MG Vial IV SCH (16:00)
--- NOTE | 2025-01-15 16:47 | NUR ---
Admit note Received report from ED RN, patient to room at approx 1530; 1 person assist transfer from [place] to bed. Up walking to bathroom to void, UA sent per orders. Pt oriented to room and call light; educated on fall risk and the need to call for assistance. Bed in low and locked. Pt alert, oriented x4; anxious at times, worsening with sob and coughing. Pt denies pain, chest pain/pressure, nausea, dizziness and numb/tingling. Spo2 91-92% on 4l o2 via nc, 3l prn is baseline at home. Ls tight/dim; requested RT breathing treatment. Nonproductive cough noted, states she hasnt been able to get anythin gup in days. Tele sinus tach 100's, bp stable. Abd mild distened, soft, nontender +bt. Edema note ble. Other vss Discussed K 3.[address] Srivastava, new order for kcl 20 meq iv once. Will continue to monitor.
[2025-01-15 16:59] LABS: U Amphetamine Screen DETECTED; U Barbituate Screen Not Detected; U Benzodiazapine Screen DETECTED; U Buprenorphine Screen Not Detected; U Cannabinoids Screen Not Detected; U Cocaine Screen Not Detected; U Methadone Screen Not Detected; U Methamphetamine Screen DETECTED; U Opiates Screen Not Detected; U Oxycodone Screen Not Detected; U Phencyclidine Screen Not Detected
[2025-01-15 20:09] VITALS: BP 152/96
[2025-01-15 23:40] VITALS: BP 142/93
[2025-01-16 04:08] VITALS: BP 128/81
[2025-01-16 04:49] LABS: Base Excess Venous 1.9 mmol/L; Bicarbonate Venous 26.5 mmol/L (24.0-30.0); PCO2 Venous 31.8 mmHg (38-42)
[2025-01-16 05:03] LABS: BASOPHILS ABSOLUTE AUTO 0.01 K/mm3 (0.00-0.23); BASOPHILS PERCENT AUTO 0 % (0-2); EOSINOPHILS PERCENT AUTO 0 % (0-6); Hematocrit 36.3 % (33.0-51.0); Hemoglobin 11.4 g/dL (11.5-16.0); IMMATURE GRAN ABSOLUTE AUTO 0.06 K/mm3 (0.00-0.10); IMMATURE GRAN PERCENT AUTO 0 % (0-1); LYMPHOCYTES PERCENT AUTO 7 % (21-46); MONOCYTES ABSOLUTE AUTO 0.34 K/mm3 (0.16-1.47); MONOCYTES PERCENT AUTO 3 % (4-13); Mean Corpuscular HGB Conc 31.4 g/dL (31.5-36.5); Mean Corpuscular Volume 83 fL (80-100); Mean Platelet Volume 8.8 fL (9.1-12.4); NEUTROPHILS ABSOLUTE AUTO 12.19 K/mm3 (1.96-9.15); NEUTROPHILS PERCENT AUTO 90 % (41-73); Platelet Count 471 K/mm3 (150-400); RDW Coefficient Variation 14.2 % (11.7-14.2); RDW Standard Deviation 42.8 fL (35.1-46.3); Red Blood Cell Count 4.38 M/mm3 (3.80-5.20)
[2025-01-16 05:50] LABS: Calcium, Blood 9.3 mg/dL (8.5-10.1); Creatinine, Blood 0.54 mg/dL (0.40-1.00); Potassium, Blood 3.7 mmol/L (3.5-5.5)
[2025-01-16] MEDS ORDERED: LORazepam 2 MG/ML 1ML Injection IV PRN ×2 (06:20→08:20)
--- NOTE | 2025-01-16 06:32 | NUR ---
SHIFT SUMMARY PT A/OX4 T/O SHIFT. VERBALIZES NEEDS, OBEYS COMMANDS. PT DENIED PAIN. PT ON RA AT BEGINNING OF SHIFT, ON 3-6L NC PRN. LUNG SOUNDS DIM, TIGHT, WHEEZY AT TIMES. PT RECIEVING BRATHING TREATMENTS BUT REFUSED THE LAST ONE OFFERED BY RESPIRATORY THERAPY. PT DEVELOPED SOB/HACKING COUGH/SEVERE ANXIETY AROUND 0600. MD WAS MADE AWARE, SEE NEW ORDERS. THIS RN OFFERED PT ANOTHER BREATHING TREATMENT, BUT PT STATED IT WOULD BE TOO MUCH AND DIDN'T WANT THE BREATHING TREATMENT YET. PT CURRENTLY ON 6L NC AND SATTING 90-92%. SINUS RHYTHM, HR 90'S, +1 EDEMA IN BLE. PT DENIES CHEST PAIN/PRESSURE T/O SHIFT. PT ON 3L AT BASELINE PRN. SBA FOR LINE MANAGEMENT, BUT PT AMBULATES TO BATHROOM. PT IS HAVING SOME URGENCY AND INCONTINENCE, CURRENTLY UTILIZING BRIEFS.
[2025-01-16] MEDS ORDERED: Albuterol 2.5 MG/3 ML VIAL INH SCH (07:35)
[2025-01-16 07:56] VITALS: BP 138/88
[2025-01-16] MEDS ORDERED: Cholecalciferol 1000 Unit Tablet (=25MCG) PO SCH (09:00)
[2025-01-16] MEDS ORDERED: Enoxaparin 40 MG/0.4 ML SYR SC SCH (09:00)
[2025-01-16 11:45] VITALS: BP 127/79
[2025-01-16] MEDS ORDERED: Omeprazole 20 MG CapCR PO SCH (14:55)
[2025-01-16 15:34] VITALS: BP 135/88
--- NOTE | 2025-01-16 17:49 | NUR ---
Shift Summary This am patient minimally responsive to painful stimuli, placed on end tidal Co2 monitoring. At approx 1030 patient alert, orineted x4; anxious but cooperative with care. Medicated for anxiety with schedule bupar. Spo2 >90%, started on 6l o2 via nc, titrated down to 3l o2 via nc. Tele sinus/sinus tach 90-100's, bp stable. Abd soft, nontender, +bt. Pt reporting "burning in stomach", medicated with tums, notified Dr Srivastava, new order for home medication entered. Pt reporting increased coughing, requesting cough syrup, notified , new orders entered. Other vss. No other acute changes noted. Will continue to monitor.
[2025-01-16] MEDS ORDERED: Benzonatate 100 MG Cap PO PRN (18:15)
[2025-01-16 19:59] VITALS: BP 146/98
[2025-01-16 23:17] VITALS: BP 134/94
[2025-01-17 04:19] VITALS: BP 157/91
--- NOTE | 2025-01-17 04:22 | NUR ---
SHIFT SUMMARY PT A/OX4, OBEYS COMMANDS, VERBALIZES NEEDS. EXPERIENCING ANXITEY INTERMITTENTLY. ON 3L NC, MAINTAINING O2 SATURATION GREATER THAN 90%. SOB UPON EXERTION. DEEP, HORSE COUGH. MT REPORTED LUNG AND THROAT PAIN STATING THIS IS DUE TO COUGHING. MEDICATING PER MAR. AMBULATING TO THE RESTROOM INDEPENDENTLY WITH IV POLE, BUT ALWAYS NOTIFIES RN BEFORE DOING SO. SINUS TACHYCARDIA WITH HR 100'S-120'S. PT DENIES CHEST PAIN/PRESSURE. NO ACUTE EVENTS THIS SHIFT
[2025-01-17 09:09] VITALS: BP 116/96
[2025-01-17] MEDS ORDERED: Guaifenesin/Dextromethorphan Syrup 5 ML UDC PO PRN (09:55)
--- NOTE | 2025-01-17 10:14 | NUR ---
ASSUMPTION OF CARE: PATIENT IS ANXIOUS ALERT AND ORIENTED X 4, ABLE TO MAKE NEDSW KNOWN, BUT DUE TO URGENCY SHE CAN GET UP IMMEDIATELY AFTER CALING, YOLANDA IV INFILTRATED, REMOVED AND DERRICK BOAT RUNNER PLACED POWERGLIDE. DENIES CHEST PAIN PRESSURE OR SOB AT REST. IS WEARING 3L VIA NC, ENDORSES COUGH PRN COUGH SYRUP REQUESTED FROM MD. PATIENT DOES ENDORSE PLEURITIC PAIN WITH COUGHING. VOIDING IN BATHROOM, DYSPNIC AND TACHYPNIC WITH EXERTION, REFUSES TO WEAR O2 TO BATHROOM, LUNGS VERY COARSE AND DIM THROUGHOUT, IMPROVED SLIGHTLY WITH TREATMENT. DR. FRAUSTO ROUNDED WITH PATIENT, SCD'S HAVE ALISSON REFUSED ALONG WITH LOVENOX DESPITE EDUCATION. NO ACUTE CONCERNS FROM THIS RN AT THIS TIME. PLAN OF CARE CONTINUES.
[2025-01-17 11:59] VITALS: BP 155/96
[2025-01-17 15:11] VITALS: BP 147/94
--- NOTE | 2025-01-17 15:49 | NUR ---
EOS: NO ACUTE CHANGES THROUGH THE SHIFT, PATIETN DOWN GRADED TO MEDICAL NO TELE. PATIENT ALSO SWITCHED TO ORAL CORTICOSTEROIDS, VSS. SR TO ST NO CHEST PAIN PRESSURE OR SOB AT REST, NO CRACKLES IN BASES OF LUNGS, MONITORING DUE TO FLUIDS INFUSING. POWERGLIDE PLACED BY CLOTH COVERED HELMET PULLER. PATIENT WALKING TO BATHROOM FOR VOIDS. NO ACUTE CONCERNS AT THIS TIME. PLAN OF CARE CONTINUESS.
[2025-01-17 19:33] VITALS: BP 158/89
--- NOTE | 2025-01-17 19:56 | NUR ---
ASSUMPTION OF CARE ASSUMED CARE OF PATIENT AT 1900, BEDSIDE SHIFT REPORT RECEIVED FORM KIMO RN. PT RESTING IN BED, ALERT AND ORIENTED X4. PT ANSWERS QUESTIONS APPROPRIATELY, FOLLOWS DIRECTION WHEN PROMPTED AND IS ABLE TO MAKE HER NEEDS KNOWN. PT MOVES EXTREMITEIS EQUALLY BILATERALLY, AMBULATES IN THE ROOM WITH MINIMAL ASSISTANCE WITH CORD MANAGEMENT. PT MED NO TELE STATUS, PT DENIES CP/PRESSURE, MAP >65. PT ON 3LPM VIA NC WHICH IS BASELINE, OXYGEM SATURATION >95%, PT TACHYPNEIC WITH EXERTION. PT HAS OCCASIONAL COUGH, MEDICATED PER EMAR. PER PT SHE HAS SMALL AMOUNTS OF WHITE/CLEAR SPUTUM BROUGHT UP WHEN COUGHING. ABDOMEN SOFT, BOWEL TONES ACTIVE THROUGHOUT, PT DENIES N/V. PT UP TO BATHROOM TO VOID. PIV IN PLACE TO LFA SL. POWERGLIDE IN PLACE TO BHUPENDRA INFUSING NS @ 75MLS/HR. BED IN LOWEST POSITION, CALL LIGHT WITHIN REACH, CARE CONTINUES.
[2025-01-17] MEDS ORDERED: Ibuprofen 600 MG Tab PO PRN (22:15)
[2025-01-17] MEDS ORDERED: Melatonin 1 MG Tablet PO PRN (22:20)
[2025-01-17 23:17] VITALS: BP 153/98
[2025-01-18 03:41] VITALS: BP 137/102
--- NOTE | 2025-01-18 04:32 | NUR ---
TRANSFER TO MEDICAL FLOOR PT TRANSFERED TO MEDICAL FLOOR VIA WHEELCHAIR. PT ALERT AND ORIENTED, ALL PT BELONGINGS TRANSFERED WITH PT.
[2025-01-18 06:07] VITALS: BP 175/100
[2025-01-18 07:23] VITALS: BP 165/98
--- NOTE | 2025-01-18 07:51 | NUR ---
SHIFT SUMMARY; PATIENT CALLED FOR HEADACHE PAIN MED, GIVEN ANXIETY MED ALSO AND TUMS. HTN NOTED, WILL LET HOSPITALIST KNOW. NS/75ML/HR CONTINUOUS
[2025-01-18] MEDS ORDERED: PredniSONE 20 MG Tab PO SCH (09:00)
[2025-01-18] MEDS ORDERED: Mometasone/Formoterol MDI 200/5 mcg 13 GM INH SCH (11:35)
[2025-01-18] MEDS ORDERED: Losartan Potassium 50 MG Tab PO SCH (14:00)
[2025-01-18 15:00] VITALS: BP 94/66
--- NOTE | 2025-01-18 18:26 | NUR ---
END OF SHIFT SUMMARY: A&Ox4. PLEASANT AND COOPERATIVE WITH CARE. CALLS APPROPRIATELY AND IS ABLE TO ADVOCATE NEEDS EFFECTIVELY. CONTINENT OF BOWEL AND BLADDER. SBA TO BATHROOM FOR ELIMINATION. LBM TODAY. MEDS WHOLE c FLUIDS. SOME C/O HEADACHE TODAY; NO OTHER PAIN. LUNG SOUNDS c COARSE WHEEZES T/O; DR. FRAUSTO ADDED INHALER c LIKELY DDC TOMORROW. BED IN LOWEST POSITION, CALL LIGHT WITHIN REACH, ALL NEEDS MET. REPORT TO ONCOMING NURSE.
[2025-01-18 19:46] VITALS: BP 148/95
--- NOTE | 2025-01-19 04:19 | NUR ---
SHIFT SUMMARY 59 YR F ADMITTED ON 01/15/25. FULL CODE. NO ACUTE CHANGES THIS SHIFT. PT AMBULATES INDEPENDANTLY AND TOOK A WALK AROUND THE UNIT THIS SHIFT. O2 SATS HAVE REMAINED WNL. SHE HAS SLEPT FOR MOST OF THIS SHIFT W/ NO C/O PAIN OR DISCOMFORT EXCEPT FOR A SLIGHT HEADACHE AND MEDICTAED WITH TYLENOL PER EMAR. WILL CONTINUE TO MONITOR. BED IN LOW POSITION AND CALL LIGHT IN REACH.
[2025-01-19 04:30] VITALS: BP 160/115
[2025-01-19 05:02] LABS: Base Excess Venous 9.3 mmol/L; Bicarbonate Venous 32.1 mmol/L (24.0-30.0); pH Blood Venous 7.48 (7.34-7.37)
[2025-01-19 05:39] LABS: BASOPHILS ABSOLUTE AUTO 0.02 K/mm3 (0.00-0.23); BASOPHILS PERCENT AUTO 0 % (0-2); EOSINOPHILS PERCENT AUTO 0 % (0-6); Hematocrit 34.8 % (33.0-51.0); Hemoglobin 11.2 g/dL (11.5-16.0); IMMATURE GRAN ABSOLUTE AUTO 0.07 K/mm3 (0.00-0.10); IMMATURE GRAN PERCENT AUTO 1 % (0-1); LYMPHOCYTES ABSOLUTE AUTO 2.95 K/mm3 (0.84-5.20); LYMPHOCYTES PERCENT AUTO 26 % (21-46); MONOCYTES ABSOLUTE AUTO 0.98 K/mm3 (0.16-1.47); MONOCYTES PERCENT AUTO 9 % (4-13); Mean Corpuscular HGB 26.5 pg (26.0-34.0); Mean Corpuscular HGB Conc 32.2 g/dL (31.5-36.5); Mean Corpuscular Volume 83 fL (80-100); Mean Platelet Volume 9.1 fL (9.1-12.4); NEUTROPHILS ABSOLUTE AUTO 7.21 K/mm3 (1.96-9.15); NEUTROPHILS PERCENT AUTO 64 % (41-73); Platelet Count 509 K/mm3 (150-400); RDW Coefficient Variation 14.5 % (11.7-14.2); RDW Standard Deviation 43.7 fL (35.1-46.3); Red Blood Cell Count 4.22 M/mm3 (3.80-5.20); White Blood Cell Count 11.23 K/mm3 (4.00-11.30)
[2025-01-19 05:55] LABS: Bun/Creatinine Ratio 26.2 (12.0-20.0); Calcium, Blood 8.2 mg/dL (8.5-10.1); Creatinine, Blood 0.57 mg/dL (0.40-1.00); Potassium, Blood 3.2 mmol/L (3.5-5.5)
[2025-01-19 09:02] VITALS: BP 150/86
[2025-01-19] MEDS ORDERED: BUSP5 PO (11:11)
[2025-01-19] MEDS ORDERED: LOSA50 PO (11:12)
[2025-01-19] MEDS ORDERED: DULERA 100 MCG/13 GM INH (11:12)
[2025-01-19] MEDS ORDERED: Q-Tussin100 MG/5 M PO (11:12)
[2025-01-19] MEDS ORDERED: Prednisone10 MG PO (11:13)
--- NOTE | 2025-01-19 12:32 | NUR ---
DISCHARGE NOTE: PT DISCHARGED AT APPROX 1130. POWEGLIDE WAS REMOVED PRIOR TO DISCHARGE. PT VERBILIZED UNDERSTANDING OF DISCHARGE INSTRUCTIONS AND MEDICATIONS PRESCRIBED. PT DAUGHT TO DRIVE HOME. COUNTY [facility] OFFICER ESCORTED PATIENT TO DOOR.
[2025-01-19 13:08] LABS: 7-AMINOCLONAZEPAM, URN, QUANT <5 ng/mL; A-HYDROXYALPRAZOLAM, URN, QNT <5 ng/mL; A-HYDROXYMIDAZOLAM, URN, QNT <20 ng/mL; ALPRAZOLAM, URN, QUANT <5 ng/mL; CHLORDIAZEPOXIDE, URN, QUANT <20 ng/mL; CLONAZEPAM, URN, QUANT <5 ng/mL; DIAZEPAM, URN, QUANT <20 ng/mL; LORAZEPAM, URN, QUANT 560 ng/mL; MIDAZOLAM, URN, QUANT <20 ng/mL; NORDIAZEPAM, URN, QUANT <20 ng/mL; OXAZEPAM, URN, QUANT <20 ng/mL; TEMAZEPAM, URN, QUANT <20 ng/mL
[2025-01-19 17:08] LABS: AMPHETAMINE,URN,QUANT 3035 ng/mL; MDA,URN,QUANT <200 ng/mL; MDEA,URN,QUANT <200 ng/mL; MDMA,URN,QUANT <200 ng/mL; METHAMPHETAMINE,URN,QUANT >10000 ng/mL; PHENTERMINE,URN,QUANT <200 ng/mL
== END 2025-01-19 11:50 | disposition home or self-care (01) | DRG 189 ==
LOC: ER 05:21 → ERHOLD 11:22 → PCU 15:36 → MEDS 01-18 04:04
PROVIDERS: Emergency Medicine; ADMIT Internal Medicine
DX: J96.01 Acute respiratory failure with hypoxia (principal); G92.8 Other toxic encephalopathy; J44.1 Chronic obstructive pulmonary disease with (acute) exacerbation; E87.3 Alkalosis; E78.5 Hyperlipidemia, unspecified; K21.9 Gastro-esophageal reflux disease without esophagitis; Z96.652 Presence of left artificial knee joint; F41.9 Anxiety disorder, unspecified; D50.9 Iron deficiency anemia, unspecified; M19.90 Unspecified osteoarthritis, unspecified site; T43.655A Adverse effect of methamphetamines, initial encounter; I10 Essential (primary) hypertension; J96.02 Acute respiratory failure with hypercapnia; Z99.81 Dependence on supplemental oxygen; Z88.1 Allergy status to other antibiotic agents; Z79.1 Long term (current) use of non-steroidal anti-inflammatories (NSAID); Z79.899 Other long term (current) drug therapy; Z79.51 Long term (current) use of inhaled steroids; Z79.891 Long term (current) use of opiate analgesic; Z87.19 Personal history of other diseases of the digestive system; Z87.81 Personal history of (healed) traumatic fracture; Z90.710 Acquired absence of both cervix and uterus; Z87.891 Personal history of nicotine dependence; Z87.09 Personal history of other diseases of the respiratory system
CPT/HCPCS: 36415; 71046; 80048; 80053; 82803; 84484; 85025; 93005; 93010; 94640; 94644; 94664; 94760; 94762; 96374; 96375; 99285-25; A9270; G0480; G0481; J0456; J0780; J1650; J2060; J2919; J3480; J7030; J7050; J7512

== ENCOUNTER 2025-01-28 06:09 | Inpatient (IN) | payer OTHER ==
[~2025-01-28] VITALS: Ht 152.4 cm; Wt 84.9 kg
[~2025-01-28 06:09] MED LIST changes: +BUSP5 PO; +DULERA 100 MCG/13 GM INH; +LOSA50 PO; +Q-Tussin100 MG/5 M PO
[2025-01-28] MEDS ORDERED: Morphine Sulfate 4 MG/1 ML Injection IV ONE ×4 (06:40→16:05)
[2025-01-28 07:22] LABS: BASOPHILS ABSOLUTE AUTO 0.03 K/mm3 (0.00-0.23); BASOPHILS PERCENT AUTO 0 % (0-2); EOSINOPHILS ABSOLUTE AUTO 0.01 K/mm3 (0.00-0.68); EOSINOPHILS PERCENT AUTO 0 % (0-6); Hematocrit 35.3 % (33.0-51.0); Hemoglobin 11.3 g/dL (11.5-16.0); IMMATURE GRAN ABSOLUTE AUTO 0.06 K/mm3 (0.00-0.10); IMMATURE GRAN PERCENT AUTO 0 % (0-1); LYMPHOCYTES ABSOLUTE AUTO 1.59 K/mm3 (0.84-5.20); LYMPHOCYTES PERCENT AUTO 10 % (21-46); MONOCYTES ABSOLUTE AUTO 1.22 K/mm3 (0.16-1.47); MONOCYTES PERCENT AUTO 8 % (4-13); Mean Corpuscular HGB 26.1 pg (26.0-34.0); Mean Corpuscular Volume 82 fL (80-100); Mean Platelet Volume 8.9 fL (9.1-12.4); NEUTROPHILS ABSOLUTE AUTO 12.65 K/mm3 (1.96-9.15); NEUTROPHILS PERCENT AUTO 81 % (41-73); Platelet Count 445 K/mm3 (150-400); RDW Coefficient Variation 14.3 % (11.7-14.2); RDW Standard Deviation 41.8 fL (35.1-46.3); Red Blood Cell Count 4.33 M/mm3 (3.80-5.20); White Blood Cell Count 15.56 K/mm3 (4.00-11.30)
[2025-01-28 07:48] LABS: Bun/Creatinine Ratio 23.8 (12.0-20.0); Calcium, Blood 8.8 mg/dL (8.5-10.1); Creatinine, Blood 0.63 mg/dL (0.40-1.00); Free Thyroxine 1.4 ng/dL (0.70-1.60); Potassium, Blood 3.3 mmol/L (3.5-5.5); Thyroid Stimulating Hormone 1.28 uIU/mL (0.360-4.800)
[2025-01-28] MEDS ORDERED: NUCALA100 MG/1 M SC (09:32)
[2025-01-28] MEDS ORDERED: BUDESONIDE-FO10.2 G2 (09:33)
[2025-01-28] MEDS ORDERED: NS 500 ML IV SCH (10:05)
[2025-01-28] MEDS ORDERED: Albuterol 2.5 MG/3 ML VIAL INH PRN (11:45)
[2025-01-28] MEDS ORDERED: Mometasone/Formoterol MDI 200/5 mcg 13 GM INH SCH (12:05)
[2025-01-28] MEDS ORDERED: FentaNYL Citrate 50 MCG/ML 2 ML Injection IV PRN (14:15)
[2025-01-28] MEDS ORDERED: Potassium Chloride 40 MEQ in NS 250 ML IV SCH (14:30)
[2025-01-28] MEDS ORDERED: Potassium Chloride 20 MEQ TabCR PO ONE (14:40)
--- NOTE | 2025-01-28 15:50 | NUR ---
ARRIVAL NOTE PT FROM ER TO ROOM 217. TRANSFERED PT TO BED FROM [facility] VIA SLIDE SHEET, PT EXTREMELY PAINFUL. JACOB DEY CONSULTED W/ DR. TOPETE FOR PAIN MED ORDERS. PT MEDICATED FOR PAIN SHORTLY AFTER ARRIVAL. VSS. PT EDUCATED DEICER REPAIRER ELECTRIC LIGHT USE. PURWICK IN PLACE.
[2025-01-28 16:00] VITALS: BP 109/78
[2025-01-28] MEDS ORDERED: OxyCODONE HCL 5 MG TAB PO PRN (16:10)
[2025-01-28] MEDS ORDERED: Acetaminophen 325 MG TABLET PO PRN (16:15)
[2025-01-28] MEDS ORDERED: FLU VACC TS2024-25(6MOS UP)/PF 45 MCG/0.5 ML SYRINGE IM SCH (16:15)
[2025-01-28] MEDS ORDERED: Lactated Ringer's 1,000 ML IV SCH (16:15)
[2025-01-28] MEDS ORDERED: Ondansetron HCl 2 MG / ML 2ML Vial IV PRN (16:15)
[2025-01-28] MEDS ORDERED: Morphine Sulfate 4 MG/1 ML Injection IV PRN (16:15)
[2025-01-28] MEDS ORDERED: COMBIVENT RESPIM4 G1 INH (17:22)
[2025-01-28] MEDS ORDERED: IBUP600 PO (17:23)
--- NOTE | 2025-01-28 19:00 | NUR ---
SHIFT SUMMARY NO ACUTE CHANGES SINCE PT'S ARRIVAL, PAIN TOLERABLE AT THIS TIME AFTER PAIN MEDS PER EMAR WHILE PT IS AT REST. SEVERE PAIN W/ MOVEMENT, PT REFUSING REPOSITIONING OR CLOTHING REMOVAL FOR SKIN CHECK, EDUCATED PT ON IMPORTANCE OF REPOSITIONING W/ NO SUCCESS. DR. TOPETE INFORMED OF PT HAVING NO VOIDS SINCE ADMISSION AND BLADDER SCAN OF 266MLS, DR. TOPETE STATES TO CONTINUE W/ PURWICK AND ENCOURAGE PO FLUIDS. PT NPO AT 0000 FOR SURGERY TOMORROW. CALL LIGHT IN REACH, REPORT TO NOC NURSE, PT RESTING AT THIS TIME.
[2025-01-28 20:28] VITALS: BP 108/63
[2025-01-28] MEDS ORDERED: Docusate Sodium 100 MG Cap PO SCH (21:00)
[2025-01-28] MEDS ORDERED: Sennosides 8.6 MG Tab PO SCH (21:00)
[2025-01-29] VITALS (21 sets, daily range): BP systolic 100–138; BP diastolic 66–90
[2025-01-29 04:10] LABS: U Amphetamine Screen DETECTED; U Barbituate Screen Not Detected; U Benzodiazapine Screen Not Detected; U Buprenorphine Screen Not Detected; U Cannabinoids Screen Not Detected; U Cocaine Screen Not Detected; U Methadone Screen Not Detected; U Methamphetamine Screen DETECTED; U Opiates Screen DETECTED; U Oxycodone Screen DETECTED; U Phencyclidine Screen Not Detected
[2025-01-29 04:46] LABS: Hematocrit 33.8 % (33.0-51.0); Hemoglobin 10.7 g/dL (11.5-16.0); Mean Corpuscular HGB 26.3 pg (26.0-34.0); Mean Corpuscular HGB Conc 31.7 g/dL (31.5-36.5); Mean Corpuscular Volume 83 fL (80-100); Mean Platelet Volume 9.5 fL (9.1-12.4); Platelet Count 408 K/mm3 (150-400); RDW Coefficient Variation 14.6 % (11.7-14.2); RDW Standard Deviation 44.4 fL (35.1-46.3); Red Blood Cell Count 4.07 M/mm3 (3.80-5.20); White Blood Cell Count 8.52 K/mm3 (4.00-11.30)
[2025-01-29 05:04] LABS: Magnesium, Blood 1.9 mg/dL (1.6-2.4)
[2025-01-29 05:05] LABS: Bun/Creatinine Ratio 19.2 (12.0-20.0); Calcium, Blood 8.3 mg/dL (8.5-10.1); Creatinine, Blood 0.68 mg/dL (0.40-1.00); Potassium, Blood 3.6 mmol/L (3.5-5.5)
[2025-01-29] MEDS ORDERED: Omeprazole 20 MG CapCR PO SCH (06:00)
[2025-01-29] MEDS ORDERED: Loratadine 10 MG Tab PO SCH (09:00)
[2025-01-29] MEDS ORDERED: MEPOLIZUMAB 100 MG/ML SC SCH (09:00)
[2025-01-29] MEDS ORDERED: Cholecalciferol 1000 Unit Tablet (=25MCG) PO SCH (09:00)
[2025-01-29] MEDS ORDERED: Ergocalciferol 50000 Intn'l Units PO SCH (11:00)
[2025-01-29 11:41] LABS: Source, Urine Clean Catch
[2025-01-29 11:50] LABS: Appearance, Urine Clear (Clear); Bilirubin, Urine Neg (Neg); Blood, Urine 1+ (Neg); Color, Urine Yellow (P-Yellow); Glucose Qualitative, Urine Neg (Neg); Ketones, Urine Neg (Neg); Leukocyte Esterase, Urine Neg (Neg); Nitrite, Urine Neg (Neg); Protein, Urine 1+ (Neg); Urobilinogen, Urine NORM (Normal)
[2025-01-29 12:44] LABS: Bacteria Few /hpf; Squamous Epithelial Cells Few /hpf (Few)
[2025-01-29] MEDS ORDERED: BusPIRone HCl 5 MG Tab PO SCH (14:00)
--- NOTE | 2025-01-29 14:12 | NUR ---
PT TO PREOP FROM ROOM 217 IN BED.
[2025-01-29] MEDS ORDERED: CeFAZolin Sodium 2,000 MG in NS 100 ML IV SCH ×2 (14:20→23:00)
[2025-01-29] MEDS ORDERED: Lactated Ringer's 1,000 ML IV SCH (14:20)
[2025-01-29] MEDS ORDERED: Bupivacaine 0.5% W/EPI 1:200000 SDV 30 ML Vial ONE (14:21)
[2025-01-29] MEDS ORDERED: Tranexamic Acid 100 ML IV SCH (14:25)
[2025-01-29] MEDS ORDERED: CeFAZolin Sodium 2,000 MG VIAL ONE (14:28)
[2025-01-29] MEDS ORDERED: propofoL 20 ML IV ONE ×2 (14:37→14:39)
[2025-01-29] MEDS ORDERED: FentaNYL Citrate 50 MCG/ML 2 ML Injection ONE (14:37)
[2025-01-29] MEDS ORDERED: Lidocaine HCl 2% 20 ML MDV ONE (14:39)
[2025-01-29] MEDS ORDERED: Ondansetron HCl 2 MG / ML 2ML Vial ONE (14:39)
[2025-01-29] MEDS ORDERED: Dexamethasone Sod Phos 10 MG/ML 1ML VIAL ONE (14:39)
--- NOTE | 2025-01-29 14:39 | NUR ---
PT TO UNIT VIA HOSP BED. History, Chart, Medications and Allergies reviewed before start of procedure. Patient confirms NPO status and agrees with scheduled surgery. DENTURES REMAIN IN PLACE WHEN TAKEN TO OR. DENTURE CUP SENT TO OR WITH CAREERS COUNSELLOR. ALL OTHER BELONGINGS LEFT IN PT'S ROOM. 22G IV IN RIGHT FOREARM FLUSHED WELL. DRESSING CLEAN AND INTACT.
[2025-01-29] MEDS ORDERED: Albuterol 2.5 MG/3 ML VIAL INH PRN (15:05)
[2025-01-29] MEDS ORDERED: FentaNYL Citrate 50 MCG/ML 2 ML Injection IV PRN ×3 (15:05)
[2025-01-29] MEDS ORDERED: Ondansetron HCl 2 MG / ML 2ML Vial IV PRN (15:05)
[2025-01-29] MEDS ORDERED: HYDROmorphone HCl 0.5 MG/0.5 ML SYR IV PRN (15:15)
[2025-01-29] MEDS ORDERED: Ketorolac Tromethamine 30mg Vial ONE (15:22)
[2025-01-29] MEDS ORDERED: HYDROmorphone HCl 0.5 MG/0.5 ML SYR ONE (16:29)
[2025-01-29] MEDS ORDERED: Phenylephrine HCl 100 MCG/ML-NS 10MLSYR (1MG/10ML) ONE (17:30)
[2025-01-29] MEDS ORDERED: Magnesium Hydroxide Conc 10 ML UDC PO PRN (19:35)
[2025-01-29] MEDS ORDERED: Bisacodyl 10 MG Supp PR PRN (19:35)
--- NOTE | 2025-01-29 19:55 | NUR ---
TRANSFER FROM PACU PT ARRIVED FROM PACU TO SURGICAL UNIT VIA HOSPITAL BED AT 1955 TODAY S/P RIGHT HIP GAMMA NAILING. PT A/OX4, IS DROWSY BUT RESPONDS TO VERBAL STIMULATION AND FOLLOWS INSTRUCTIONS. RIGHT FA IV TO GRAVITY LR, WILL SWITCH TO PUMP PER ORDERS. LEFT WRIST IV PATENT/SL. PT DENIES SOB, CP, N/T, OR PAIN. ABLE TO WIGGLE FINGERS/TOES. PLACED ON CONT BIOX PER ORDERS, SPO2 AT 95% ON 2L. FOAM WITH GAUZE DRESSING X3 TO RIGHT HIP/KNEE CDI, NO DRAINAGE NOTE. DECLINES PO INTAKE, REQUESTS TO SLEEP. HAS CALL LIGHT IN REACH.
[2025-01-30] VITALS (8 sets, daily range): BP systolic 91–104; BP diastolic 53–70
[2025-01-30 02:14] LABS: MYOGLOBIN SERUM 148 ng/mL (<=58)
[2025-01-30 05:12] LABS: Hematocrit 29.6 % (33.0-51.0); Hemoglobin 9.2 g/dL (11.5-16.0); Mean Corpuscular HGB 26.1 pg (26.0-34.0); Mean Corpuscular HGB Conc 31.1 g/dL (31.5-36.5); Mean Corpuscular Volume 84 fL (80-100); Mean Platelet Volume 9.3 fL (9.1-12.4); Platelet Count 395 K/mm3 (150-400); RDW Coefficient Variation 14.6 % (11.7-14.2); RDW Standard Deviation 44.6 fL (35.1-46.3); Red Blood Cell Count 3.53 M/mm3 (3.80-5.20); White Blood Cell Count 16.74 K/mm3 (4.00-11.30)
--- NOTE | 2025-01-30 06:47 | NUR ---
SHIFT SUMMARY POD 1 LEFT HIP NAILING. DRESSING CDI. ICE APPLIED T/O SHIFT TOLERATED. PAIN MANAGED WITH PO MEDICATION PER EMAR X 1. PT SLEPT T/O MOST OF SHIFT. ABX AND IVF INFUSING PER ORDERS. PT ABLE TO ASSIST AND TOLERATE REPOSITIONING IN BED. AWAITING POST OP AMBULATION, PLAN TO WORK WITH THERAPY TODAY. JAMESON PATENT TO GRAVITY DRAIN PER ORDERS. SADE PO INTAKE. ABLE TO MAKE NEEDS KNOWN. WILL GIVE REPORT TO ONCOMING RN.
[2025-01-30] MEDS ORDERED: Enoxaparin 40 MG/0.4 ML SYR SC SCH (09:00)
--- NOTE | 2025-01-30 16:35 | NUR ---
SHIFT SUMMARY THIS RN ASSUMED CARE AT APPROX 0715. PATIENT ALERT AND ORIENTED X4. EXPERIENCES EPISODES OF ANXIETY ESPECIALLY RELATED TO MOBILITY AND PAIN - MANAGING WITH THERAPEUTIC DISCUSSION AND SCHEDULED PO BUSPAR. VSS. BP SOFT - SBP 90s. MAP >65. ASYMPTOMATIC. PLACED ON 2L VIA NC WITH SLEEP SATs <88% - PATIENT REPORTS BASELINE 3L PRN USE AT HOME. ON ROOM AIR, SATs >88% WHILE AWAKE. CONTINUOUS PULSE OX AT BEDSIDE. POD 1 R HIP NAILING - SURGICAL FOAM AND GAUZE DRESSING C/D/I. MANAGING PAIN PER EMAR. 2P ASSIST TO SIT ON SIDE OF BED WITH PHYSICAL THERAPY. ENCOURAGING BED MOBILITY DECLINING TRANSFER TO CHAIR THIS AFTERNOON. TOLERATING PO INTAKE. JAMESON CATHETER IN PLACE - DRAINING YELLOW URINE TO GRAVITY. NO BM. CALL LIGHT IN REACH.
[2025-01-31 03:51] VITALS: BP 103/65
[2025-01-31 06:24] LABS: Hematocrit 24.6 % (33.0-51.0); Hemoglobin 7.6 g/dL (11.5-16.0); Mean Corpuscular HGB Conc 30.9 g/dL (31.5-36.5); Mean Corpuscular Volume 84 fL (80-100); Mean Platelet Volume 9.3 fL (9.1-12.4); Platelet Count 334 K/mm3 (150-400); RDW Coefficient Variation 14.7 % (11.7-14.2); RDW Standard Deviation 45.2 fL (35.1-46.3); Red Blood Cell Count 2.92 M/mm3 (3.80-5.20); White Blood Cell Count 8.42 K/mm3 (4.00-11.30)
[2025-01-31 07:24] VITALS: BP 108/62
--- NOTE | 2025-01-31 07:38 | NUR ---
NURSES NOTES; PATIENT SLEPT IN LONG INTERVAALS MEDICATED PO AND IV FOR PAIN. JAMESON DARINGIN CLEAR URINE. DRESSING CD&I.
[2025-01-31 11:19] VITALS: BP 105/58
[2025-01-31 11:36] LABS: Percent Saturation 5.1 % (15.0-50.0)
[2025-01-31] MEDS ORDERED: Iron Dextran 50 MG / ML 2ML Vial IV ONE (12:50)
[2025-01-31] MEDS ORDERED: Iron Dextran 975 MG in NS 250 ML IV ONE (12:50)
[2025-01-31 15:01] VITALS: BP 99/57
--- NOTE | 2025-01-31 16:21 | NUR ---
SHIFT SUMMARY THIS RN ASSUMED CARE AT APPROX 0715. PATIENT ALERT AND ORIENTED X4. EPISODES OF ANXIETY MANAGED PER EMAR AND WITH THERAPUETIC DISCUSSION. BP SOFT - SBP 90s-100s. MAP >65. ASYMPTOMATIC. ON ROOM AIR WHILE AWAKE AND ON BASELINE PRN USE OF 2L VIA NC WITH SLEEP. CONTINOUS PULSE OX AT BEDSIDE. DENIES SHORTNESS OF BREATH. POD 2 R HIP NAILING. MANAGING PAIN PER EMAR. ENCOURAGING INCREASED MOBILITY TODAY - UP TO CHAIR WITH 1P ASSIST FWW GB. UNABLE TO TOLERATE SITTING IN CHAIR FOR INCREASED PERIODS OF TIME - ENCOURAGING TO SIT IN CHAIR WITH ALL MEALS. GAUZE AND SURGICAL TAPE DRESSING C/D/I. BEDBATH PERFORMED. JAMESON CATHETER REMOVED TODAY - AWAITING SPONTANEOUS POST OP VOID. BLADDER SCAN PERFORMED SHOWING 117ML. IRON INFUSION COMPLETED TODAY PER EMAR. CALL LIGHT IN REACH.
[2025-01-31 19:08] VITALS: BP 112/67
[2025-01-31 23:35] VITALS: BP 110/69
[2025-02-01 03:12] VITALS: BP 123/65
--- NOTE | 2025-02-01 04:34 | NUR ---
SHIFT SUMMARY TABBY WAS ALERT AND FULLY ORIENTED ON ASSESSMENT. PER PT, PAIN IS INCREASED THIS SHIFT COMPARED TO PREVIOUS DAY. MEDICATED TO GOOD EFFECT, PAIN WELL CONTROLLED AT THIS TIME. PT IS AMBULATING AND VOIDING APPROPRIATELY. DRESSINGS C/D/I. DISTAL CIRCULATION AND SENSATION INTACT. NO ACUTE EVENTS.
[2025-02-01 05:39] LABS: Hematocrit 26.3 % (33.0-51.0); Hemoglobin 8.1 g/dL (11.5-16.0); Mean Corpuscular HGB 26.3 pg (26.0-34.0); Mean Corpuscular HGB Conc 30.8 g/dL (31.5-36.5); Mean Corpuscular Volume 85 fL (80-100); Mean Platelet Volume 9.1 fL (9.1-12.4); Platelet Count 363 K/mm3 (150-400); RDW Coefficient Variation 14.9 % (11.7-14.2); RDW Standard Deviation 46.6 fL (35.1-46.3); Red Blood Cell Count 3.08 M/mm3 (3.80-5.20); White Blood Cell Count 8.44 K/mm3 (4.00-11.30)
[2025-02-01 07:28] VITALS: BP 114/71
[2025-02-01] MEDS ORDERED: Morphine Sulfate 4 MG/1 ML Injection IV PRN (09:35)
[2025-02-01 11:51] VITALS: BP 111/60
[2025-02-01 19:42] LABS: AMPHETAMINE,URN,QUANT >5000 ng/mL; MDA,URN,QUANT <200 ng/mL; MDEA,URN,QUANT <200 ng/mL; MDMA,URN,QUANT <200 ng/mL; METHAMPHETAMINE,URN,QUANT >10000 ng/mL; PHENTERMINE,URN,QUANT <200 ng/mL
--- NOTE | 2025-02-01 19:51 | NUR ---
SHIFT SUMMARY PT IS POD#3. PAIN MANAGED WITH PO TYLENOL AND OXY THIS SHIFT. PT IS A 1 ASSIST WHEN OOB. PT GOT UP TO THE BSC FOR TOILETING. SHE DECLINED TO SIT IN THE RECLINER TODAY. PT TOLERATING PO, GOOD INTAKE. BEDSIDE REPORT GIVEN TO IKER DEY.
[2025-02-01 20:24] VITALS: BP 109/72
--- NOTE | 2025-02-01 20:34 | NUR ---
Asumption of Care: Report received from day RN. Harshad is up on commode and asking for nurse to look at her back. Stated she has been scratching her back and it was bleeding. Noted scratch rene but not bleeding at this time. Otherwise no other complaints. Continue Care
[2025-02-02 00:44] VITALS: BP 102/69
[2025-02-02 03:18] VITALS: BP 112/66
--- NOTE | 2025-02-02 05:20 | NUR ---
PATIENT AWOKEN A FEW TIMES DURING SHIFT TO USE BSC, ASKED FOR PAIN MEDICATION, AND WANTING TO EAT. PALOMA IS INCONTINT OF URINE WHEN SHE STANDS UP AND PIVOTS TO BSC. 3 LITERS OF O2 BASELINE. NO NEW ISSUES TONIGHT. CONTINUE CARE.
[2025-02-02 06:28] LABS: Hematocrit 27.4 % (33.0-51.0); Hemoglobin 8.4 g/dL (11.5-16.0)
[2025-02-02 07:00] LABS: Albumin, Blood 2.5 g/dL (3.4-5.0); Albumin/Globulin Ratio 0.6 (0.8-1.8); Bilirubin, Total 0.3 mg/dL (0.1-1.0); Bun/Creatinine Ratio 14.6 (12.0-20.0); Calcium, Blood 8.3 mg/dL (8.5-10.1); Creatinine, Blood 0.55 mg/dL (0.40-1.00); Globulin, Blood 3.9 g/dL (2.2-4.0); Magnesium, Blood 2.1 mg/dL (1.6-2.4); Phosphorus, Blood 3.8 mg/dL (2.5-4.9); Potassium, Blood 3.6 mmol/L (3.5-5.5); Total Protein, Blood 6.4 g/dL (6.4-8.2)
[2025-02-02 07:39] VITALS: BP 119/72
--- NOTE | 2025-02-02 10:04 | NUR ---
DRESSING CHANGE R HIP/THIGH DRESSING WAS REMOVED AND REPLACED WITH AQUACEL DRESSING. INCISION SITES HAVE MINIMAL DRAINAGE, SEROSANGUINOUS DRAINAGE. SITE APPEARS WNL.
[2025-02-02 15:50] LABS: 6-ACETYLMORPHINE, URN, QUANT <10 ng/mL; CODEINE, URN, QUANT <20 ng/mL; HYDROCODONE, URN, QUANT <20 ng/mL; HYDROMORPHONE, URN, QUANT <20 ng/mL; MORPHINE, URN, QUANT >4000 ng/mL; NORHYDROCODONE, URN, QUANT <20 ng/mL; NOROXYCODONE, URN, QUANT 752 ng/mL; NOROXYMORPHONE, URN, QUANT 24 ng/mL; OXYCODONE, URN, QUANT 1486 ng/mL; OXYMORPHONE, URN, QUANT <20 ng/mL
--- NOTE | 2025-02-02 17:39 | NUR ---
SHIFT SUMMARY PAIN HAS BEEN MANAGED WITH PO PAIN MEDICATION THIS SHIFT. SHE HAS BEEN A 1 ASSIST FOR AMBULATION AND TRANSFERS. PT USED HER CALL LIGHT APPROPRIATELY. DISCHARGE PLAN IS FOR SNF.
[2025-02-02 17:54] VITALS: BP 120/75
[2025-02-02 19:31] VITALS: BP 121/71
[2025-02-03 04:47] VITALS: BP 114/63
--- NOTE | 2025-02-03 05:15 | NUR ---
SHIFT SUMMARY POD 5, SMALL AMOUNT OF SHADOWING NOTED ON AQUACEL X 2 TO RIGHT HIP; CHANGED YESTERDAY DAY SHIFT. PAIN MANAGED PER EMAR. SADE PO INTAKE, DENIES N/V. IS VOIDING AND AMBULATING TO BATHROOM WITH FWW, GB, SBA. CONT BIOX IN PLACE, SPO2 AT 97% ON RA. REFUSING ICE OR SCDS T/O SHIFT. PLAN TO WORK WITH THERAPY TODAY. A/OX4, ABLE TO MAKE NEEDS KNOWN. WILL GIVE REPORT TO ONCOMING RN
[2025-02-03 05:47] LABS: Hemoglobin 8.8 g/dL (11.5-16.0)
[2025-02-03 06:32] LABS: Bun/Creatinine Ratio 14.3 (12.0-20.0); Calcium, Blood 8.4 mg/dL (8.5-10.1); Creatinine, Blood 0.63 mg/dL (0.40-1.00); Potassium, Blood 3.7 mmol/L (3.5-5.5)
[2025-02-03 08:15] VITALS: BP 124/75
[2025-02-03] MEDS ORDERED: Cyclobenzaprine HCl 10 MG Tab PO ONE (09:40)
[2025-02-03] MEDS ORDERED: Cyclobenzaprine HCl 10 MG Tab PO SCH (14:00)
[2025-02-03 16:07] VITALS: BP 130/71
--- NOTE | 2025-02-03 17:33 | NUR ---
SHIFT SUMMARY PATIENT IS AOX4, SBA TO BATHROOM FWW, GB. VOIDING, PASSING GAS. MEDICATED FOR PAIN T/O SHIFT. TOLERATING WELL. AQUACEL X2 TO R HIP WITH SLIGHT SHADOWING. TOLERATING PO INTAKE. DID THERAPY EXCERISES IN ROOM. RESTS T/O DAY. VSS. CALL LIGHT IN REACH.
[2025-02-03] MEDS ORDERED: Calcium Carbonate 500 MG Tab Chew PO PRN (19:55)
[2025-02-03 20:19] VITALS: BP 122/76
[2025-02-04 05:22] VITALS: BP 116/73
[2025-02-04 05:41] LABS: Hematocrit 28.8 % (33.0-51.0); Hemoglobin 8.9 g/dL (11.5-16.0)
[2025-02-04 05:59] LABS: Bun/Creatinine Ratio 12.9 (12.0-20.0); Creatinine, Blood 0.62 mg/dL (0.40-1.00); Potassium, Blood 3.8 mmol/L (3.5-5.5)
--- NOTE | 2025-02-04 06:45 | NUR ---
SHIFT SUMMARY NO ACUTE CHANGES T/O SHIFT. AQUACEL DRESSING IN PLACE TO LEFT HIP. PAIN MANAGED PER EMAR AND ICE THERAPY. AMB WITH FWW, GB, SBA; PT TOLERATED WELL. SADE PO INTAKE, DENIES N/V. IS VOIDING YELLOW URINE. ENCOURAGED OOB, AMB AND FLUID INTAKE SADE. IV PATENT AND SL. WILL GIVE REPORT TO ONCOMING RN.
[2025-02-04 08:07] VITALS: BP 115/73
[2025-02-04 14:47] VITALS: BP 121/73
--- NOTE | 2025-02-04 14:57 | NUR ---
SUMMARY PATIENT AOX4, SBA TO BATHROOM/CHAIR. PARICIPATED IN THERAPY. MEDICATED FOR PAIN TOLERATING WELL. X3 AQUACELS TO R HIP, CHANGED TODAY. C/D/I. VOIDING, PASSING GAS, HAS A BM TODAY. DENIES N/V. DENIES N/T. PLAN TO DC TO SNF. ATTEMPTED TO CALL REPORT TO [facility] AT 1500. TRANSPORT IS SCHEDULED FOR 1530.
--- NOTE | 2025-02-04 15:46 | NUR ---
patient leaves to [facility] with transport @ 1530. iv taken out intact. all belongings and dc packet with lease purchase truck driver. report called.
== END 2025-02-04 15:39 | DRG 482 ==
LOC: ER 06:09 → SURS 06:10
PROVIDERS: Emergency Medicine; Hospitalist; Internal Medicine; Orthopaedic Surgery; ADMIT Surgery
PROC: 0QS806Z Reposition Right Femoral Shaft with Intramedullary Internal Fixation Device, Open Approach (ICD-10-PCS; principal; 2025-01-29 15:00)
DX: S72.301A Unspecified fracture of shaft of right femur, initial encounter for closed fracture (principal); D50.9 Iron deficiency anemia, unspecified; J44.9 Chronic obstructive pulmonary disease, unspecified; F15.10 Other stimulant abuse, uncomplicated; E55.9 Vitamin D deficiency, unspecified; I10 Essential (primary) hypertension; K21.9 Gastro-esophageal reflux disease without esophagitis; E87.6 Hypokalemia; D72.829 Elevated white blood cell count, unspecified; M62.838 Other muscle spasm; W18.39XA Other fall on same level, initial encounter; Y92.002 Bathroom of unspecified non-institutional (private) residence as the place of occurrence of the external cause; Z96.652 Presence of left artificial knee joint; Z87.891 Personal history of nicotine dependence; Z88.1 Allergy status to other antibiotic agents; Z79.52 Long term (current) use of systemic steroids; Z79.51 Long term (current) use of inhaled steroids
CPT/HCPCS: 36415; 51798; 71045; 73502; 73552; 80048; 80053; 81001; 82306; 82550; 82728; 83540; 83550; 83735; 83874; 84100; 84439; 84443; 85014; 85018; 85025; 85027; 93005; 93010; 94640; 94664; 94760; 94762; 96374; 96375; 96376; 97110; 97112; 97161; 97166; 97530; 97535; 99285-25; A9270; C1713; C1769; G0480; J0690; J1100; J1171; J1650; J1750; J1885; J2270; J2371; J2405; J2704; J3010; J3480; J7030; J7050; J7120